=== PATIENT | female | born 1970 | race Caucasian/White ===

== ENCOUNTER → 2016-10-22 | Outpatient (CLI) | payer OTHER ==
[2016-10-22 10:52] LABS: Basophils % (A) 0 %; CH 25.8; CHCM 32.7; Eosinophils # (A) 0.1 k/uL (0-0.7); Eosinophils % (A) 1 %; HCT 39.3 % (34.0-46.0); HDW 2.62; HGB 12.8 gm/dL (11.4-16.0); Luc # (Auto) 0.25; Luc % (Auto) 3; Lymphocytes # (A) 2.5 k/uL (1.0-4.8); Lymphocytes % (A) 28 %; MCH 25.9 pg (25.0-35.0); MCHC 32.7 g/dL (31.0-37.0); MCV 79.3 fL (80.0-100.0); Monocytes # (A) 0.4 k/uL (0-1.0); Monocytes % (A) 5 %; Neutrophils # (A) 5.7 k/uL (1.3-7.7); Neutrophils % (A) 64 %; RBC 4.95 m/uL (3.80-5.40); RDW 15.1 % (11.5-15.5); WBC (Perox) 9.81
[2016-10-22 11:25] LABS: ALT 22 U/L (9-52); AST 14 U/L (14-36); Alkaline Phosphatase 107 U/L (38-126); Anion Gap 9 mmol/L; Blood Urea Nitrogen 23 mg/dL (7-17); Calcium 9.5 mg/dL (8.4-10.2); Carbon Dioxide 26 mmol/L (22-30); Chloride 102 mmol/L (98-107); Cholesterol 149 mg/dL (<200); Glucose 95 mg/dL (74-99); HDL Cholesterol 53 mg/dL (40-60); Non-African American GFR(MDRD) >60 (>60 ml/min/1.73 sqM); Potassium 4.1 mmol/L (3.5-5.1); Sodium 137 mmol/L (137-145); Total Bilirubin 0.9 mg/dL (0.2-1.3); Total Protein 7.2 g/dL (6.3-8.2); Triglycerides 133 mg/dL (<150)
== END | disposition home or self-care (01) ==
LOC: LABWHC1 10:27
PROVIDERS: ATTEND Internal Medicine Critical Care Medicine
DX: Z00.00 Encounter for general adult medical examination without abnormal findings (principal); I10 Essential (primary) hypertension; E78.5 Hyperlipidemia, unspecified; E55.9 Vitamin D deficiency, unspecified
CPT/HCPCS: 36415; 80053; 80061; 82306; 84439; 84443; 85025

== ENCOUNTER → 2016-11-09 | Outpatient (CLI) | payer OTHER ==
--- NOTE | 2016-11-09 10:10 | CT ---
EXAMINATION TYPE: CT brain w con DATE OF EXAM: 11/09/2016 COMPARISON: NONE HISTORY: Patient complains of bilateral neck swelling (marked by BB) and headache. CT DLP: 788.8 mGycm Automated exposure control for dose reduction was used. CONTRAST: CT scan of the head is performed with IV Contrast, patient injected with 100 mL of Omnipaque 300. FINDINGS: There is no abnormal enhancing mass or midline shift identified. The ventricles and sulci are within normal limits in size. The globes are intact and the visualized sinuses are clear. If symptoms pers ist Consider MRI. IMPRESSION: Negative contrast enhanced head CT exam.
--- NOTE | 2016-11-09 10:16 | CT ---
EXAMINATION TYPE: CT soft tissue neck w con DATE OF EXAM: 11/09/2016 COMPARISON: NONE HISTORY: Patient complains of bilateral neck swelling (marked by BB) and headache. CT DLP: 874.2 mGycm CONTRAST: CT scan of the neck is performed with IV Contrast, patient injected with 100 mL of Omnipaque 300. Contrast enhanced CT of the neck was performed from the skull base through the lung apices. AIRWAY: The supraglottic, glottic, and subglottic portions of the airway appear patent and free of mass. SALIVARY GLANDS: The submandibular and parotid glands are free of mass or inflammatory process. THYROID GLAND: No nodules or masses seen. LYMPH NODES: At the site of clinical concern in the right neck there is an enlarged lymph node measur ing 1 cm in short axis. Multiple adjacent lymph nodes are identified measuring less than 1 cm. There are also lymph nodes noted adjacent to the left submandibular gland at the site of clinical concern m easuring 8 mm. Bilateral internal jugular chain lymph nodes are seen measuring up to 1.1 cm on the ri ght 1.1 cm on the left. Multiple bilateral nonenlarged lymph nodes are seen adjacent to the submandib ular glands all measuring less than 1 cm. LUNG APICES: No nodule or mass is seen. OTHER: Vascular structures are patent. No significant degenerative change of the cervical spine. N o abscess seen. IMPRESSION: Multiple bilateral mildly enlarged and subcentimeter lymph nodes as discussed above which are nonspe cific.
== END | disposition home or self-care (01) ==
LOC: RADCTMAIN 09:32
PROVIDERS: ATTEND Internal Medicine Critical Care Medicine
DX: R59.1 Generalized enlarged lymph nodes (principal)
CPT/HCPCS: 70491; 70460; Q9967; 36415; 80053; 82164; 82550; 85025; 85652; 86308; 86611; 86735; 86762; 86765

== ENCOUNTER → 2016-11-09 | Outpatient (CLI) | payer OTHER ==
[2016-11-09 13:40] LABS: Basophils # (A) 0.1 k/uL (0-0.2); Basophils % (A) 1 %; CH 25.3; CHCM 32.2; Eosinophils # (A) 0.1 k/uL (0-0.7); Eosinophils % (A) 1 %; HCT 39.8 % (34.0-46.0); HDW 2.61; HGB 13.5 gm/dL (11.4-16.0); Luc # (Auto) 0.19; Luc % (Auto) 2; Lymphocytes # (A) 1.8 k/uL (1.0-4.8); Lymphocytes % (A) 19 %; MCH 26.8 pg (25.0-35.0); MCV 78.9 fL (80.0-100.0); Mean Platelet Volume 7.2; Monocytes # (A) 0.4 k/uL (0-1.0); Monocytes % (A) 5 %; Neutrophils # (A) 6.8 k/uL (1.3-7.7); Neutrophils % (A) 72 %; RBC 5.04 m/uL (3.80-5.40); WBC 9.4 k/uL (3.8-10.6); WBC (Perox) 9.59
[2016-11-09 13:57] LABS: ALT 25 U/L (9-52); AST 12 U/L (14-36); Alkaline Phosphatase 123 U/L (38-126); Anion Gap 13 mmol/L; Blood Urea Nitrogen 18 mg/dL (7-17); Calcium 9.5 mg/dL (8.4-10.2); Carbon Dioxide 25 mmol/L (22-30); Chloride 100 mmol/L (98-107); Creatine Kinase 36 U/L (30-135); Glucose 91 mg/dL (74-99); Non-African American GFR(MDRD) >60 (>60 ml/min/1.73 sqM); Potassium 3.9 mmol/L (3.5-5.1); Sodium 138 mmol/L (137-145); Total Bilirubin 0.8 mg/dL (0.2-1.3); Total Protein 7.6 g/dL (6.3-8.2)
[2016-11-09 15:50] LABS: Erythrocyte Sedimentation Rate 33 mm/hr (0-20)
[2016-11-09 19:44] LABS: Mumps Virus IgG Ab Interp NEGATIVE (NEGATIVE); Rubeola (Measles) IgG 5.3 AI
[2016-11-12 07:08] LABS: Bartonella henselae Ab, IgG <1:64; Bartonella henselae Ab, IgM < 1:16
== END | disposition home or self-care (01) ==
LOC: LABWHC1 12:36
PROVIDERS: ATTEND Internal Medicine Critical Care Medicine
DX: R59.9 Enlarged lymph nodes, unspecified (principal)
CPT/HCPCS: 36415; 80053; 82164; 82550; 85025; 85652; 86308; 86611; 86735; 86762; 86765

== ENCOUNTER → 2017-12-21 | Outpatient (CLI) | payer MEDICAID ==
--- NOTE | 2017-12-21 08:02 | XR ---
EXAMINATION TYPE: XR ankle complete LT DATE OF EXAM: 12/21/2017 CLINICAL HISTORY: Twisting injury and fall with subsequent left ankle pain. TECHNIQUE: Frontal, lateral and oblique images of the left ankle are obtained. COMPARISON: None. FINDINGS: There is pronounced soft tissue swelling over the lateral malleolus. Small osseous fragment s at the distal fibula may represent avulsion fracture. Small plantar and Achilles enthesophytes are seen. There is no additional acute fracture/dislocation evident in the left ankle. The ankle mortis e appears within normal limits. IMPRESSION: Small osseous fragments of the distal fibula and a prominent overlying soft tissue swelli ng over the lateral malleolus. Findings likely relate to avulsion injury of the anterior and/or poste rior talofibular ligament, which could be confirmed with MRI.
== END | disposition home or self-care (01) ==
LOC: RADXRMAIN 07:29
PROVIDERS: ATTEND Internal Medicine Critical Care Medicine
DX: M79.89 Other specified soft tissue disorders (principal); M25.572 Pain in left ankle and joints of left foot

== ENCOUNTER → 2018-05-22 | Outpatient (CLI) | payer MEDICAID ==
--- NOTE | 2018-05-26 11:16 | MM ---
Reason for exam: screening (asymptomatic). Last mammogram was performed 1 year and 1 month ago. History: Patient is nulliparous. Took hormonal contraceptives for 4 years. MG 3D Screening Mammo W/Cad Bilateral CC and MLO view(s) were taken. Prior study comparison: April 07, 2017, bilateral MG screening mammo w CAD. December 09, 2015, bilateral MG screening mammo w CAD. The breast tissue is heterogeneously dense. This may lower the sensitivity of mammography. There is benign-appearing round bilateral breast calcifications. There is chronic nodularity in the right breast and the left axilla. No discrete abnormality. ASSESSMENT: Benign, BI-RAD 2 RECOMMENDATION: Routine screening mammogram of both breasts in 1 year.
== END ==
LOC: RADMAMWWP 06:50
PROVIDERS: ATTEND Internal Medicine Critical Care Medicine
DX: Z12.31 Encounter for screening mammogram for malignant neoplasm of breast (principal)
CPT/HCPCS: 77063; 77067

== ENCOUNTER 2018-08-07 07:43 | Emergency (ER) | payer MEDICAID ==
[2018-08-07 07:49] VITALS: RESP 18
[2018-08-07] MEDS ORDERED: SODIUM CHLORIDE 0.9% 1,000 ML IV STA ×2 (08:01)
[2018-08-07] MEDS ORDERED: ONDANSETRON 4 MG/2 ML VIAL IVP STA (08:01)
[2018-08-07] MEDS ORDERED: KETOROLAC 30 MG/ML 1 ML VIAL IVP STA (08:07)
--- NOTE | 2018-08-07 08:07 | ED ---
Chest Pain HPI - General Chief Complaint: Chest Pain Stated Complaint: chest pain Time Seen by Provider: 08/07/18 07:50 Source: patient, RN notes reviewed Mode of arrival: wheelchair Limitations: no limitations - History of Present Illness Initial Comments: This is a 48-year-old female with a benign past medical history other than hypothyroidism and hypertension who states she had the onset 2 days ago of nausea vomiting diarrhea she's had multiple episodes of this. She started developing 4 AM this morning left-sided sharp stabbing chest pain in one location she points her left mid to upper costal sternal margin. It is now dull about 4/10 severity. He currently is nauseated she also complains of a headache she has some lightheadedness with ambulation decreased urine output. Decreased oral input. No known history of any abdominal issues. No bad food no exposure to anybody with known GI problems no recent travel. No family history of any heart disease at early age. MD Complaint: chest pain, other - Related Data Home Medications Medication Instructions Recorded Confirmed Cetirizine HCl [Zyrtec] 10 mg PO DAILY 08/07/18 08/07/18 Levothyroxine Sodium [Synthroid] 200 mcg PO DAILY 08/07/18 08/07/18 Losartan Potassium [Cozaar] 100 mg PO DAILY 08/07/18 08/07/18 Ranitidine HCl [Zantac] 150 mg PO DAILY PRN 08/07/18 08/07/18 Previous Rx's Medication Instructions Recorded Ondansetron [Zofran ODT] 4 mg PO Q8HR #12 tab 08/07/18 Allergies Allergy/AdvReac Type Severity Reaction Status Date / Time metronidazole [From Flagyl] Allergy Nausea & Verified 08/07/18 08:45 Vomiting moxifloxacin [From Avelox] Allergy Diarrhea Verified 08/07/18 08:45 Review of Systems ROS Statement: Those systems with pertinent positive or pertinent negative responses have been documented in the HPI. ROS Other: All systems not noted in ROS Statement are negative. Past Medical History Past Medical History: Hypertension, Thyroid Disorder History of Any Multi-Drug Resistant Organisms: None Reported Past Surgical History: No Surgical Hx Reported Past Psychological History: No Psychological Hx Reported Smoking Status: Never smoker Past Alcohol Use History: None Reported Past Drug Use History: None Reported General Exam - General Exam Comments Initial Comments: Well-developed well-nourished awake alert oriented 3 female Limitations: no limitations General appearance: alert, anxious Head exam: Present: atraumatic, normocephalic, normal inspection Eye exam: Present: normal appearance, PERRL, EOMI. Absent: scleral icterus, conjunctival injection, periorbital swelling ENT exam: Present: mucous membranes dry Neck exam: Present: normal inspection. Absent: tenderness, meningismus, lymphadenopathy Respiratory exam: Present: normal lung sounds bilaterally, chest wall tenderness (Producible tenderness palpation over the left costosternal margin no step-off or crepitation.). Absent: respiratory distress, wheezes, rales, rhonchi, stridor Cardiovascular Exam: Present: regular rate, normal rhythm, normal heart sounds. Absent: systolic murmur, diastolic murmur, rubs, gallop, clicks GI/Abdominal exam: Present: soft, tenderness, normal bowel sounds. Absent: distended, guarding, rebound, rigid Rectal exam: Present: deferred Extremities exam: Present: normal inspection, full ROM, normal capillary refill. Absent: tenderness, pedal edema, joint swelling, calf tenderness Back exam: Present: normal inspection Neurological exam: Present: alert, oriented X3, CN II-XII intact Psychiatric exam: Present: normal affect, normal mood Skin exam: Present: warm, dry, intact, normal color. 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 Patient was seen in the emergency department by Dr. Marte. Chest Pain MDM - MDM I did reevaluate patient several occasions he CAT scan of the chest showed no evidence of pulmonary embolism. Patient's presentation consistent with gastroenteritis likely viral etiology. She also has costochondritis muscles cold-type pain. Elevated d-dimer did require a CAT scan which was negative for PE. Patient be discharged to follow-up with her doctor return when necessary the influenza was negative Disposition Clinical Impression: Gastroenteritis, Acute chest wall pain, Costalchondritis Disposition: HOME SELF-CARE Condition: Good Instructions (If sedation given, give patient instructions): Costochondritis (ED), Gastroenteritis (ED) Prescriptions: Ondansetron [Zofran ODT] 4 mg PO Q8HR #12 tab Is patient prescribed a controlled substance at d/c from ED?: No Referrals: Charly Mckeon MD [Primary Care Provider] - 1-2 days
[2018-08-07 08:25] LABS: Basophils % (A) 0 %; Eosinophils # (A) 0.1 k/uL (0-0.7); Eosinophils % (A) 1 %; HCT 43.3 % (34.0-46.0); HGB 13.8 gm/dL (11.4-16.0); Lymphocytes # (A) 0.5 k/uL (1.0-4.8); Lymphocytes % (A) 8 %; MCH 25.3 pg (25.0-35.0); MCHC 31.8 g/dL (31.0-37.0); MCV 79.4 fL (80.0-100.0); Mean Platelet Volume 6.8; Monocytes # (A) 0.4 k/uL (0-1.0); Monocytes % (A) 5 %; Neutrophils # (A) 5.4 k/uL (1.3-7.7); Neutrophils % (A) 84 %; Platelet Count 261 k/uL (150-450); RBC 5.46 m/uL (3.80-5.40); WBC 6.5 k/uL (3.8-10.6)
--- NOTE | 2018-08-07 08:30 | XR ---
EXAMINATION TYPE: XR chest 2V DATE OF EXAM: 08/07/2018 COMPARISON: Prior chest x-ray 04/27/2017 HISTORY: Chest pain TECHNIQUE: Frontal and lateral views of the chest are obtained. FINDINGS: Lung volumes are low and the patient is rotated. Heart size is likely stable accounting fo r differences in technique. No evident airspace disease, pneumothorax, or pleural effusion. There are overlying cardiac leads. IMPRESSION: No acute cardiopulmonary process.
--- NOTE | 2018-08-07 08:32 | XR ---
Abdomen HISTORY: Vomiting and diarrhea frontal view of the abdomen on 2 images Lung bases are clear. There is no evident bowel obstruction or pneumoperitoneum. There are some air-f luid levels present. There is a spinal curvature and degenerative disc disease noted. Overlying cardi ac leads are present. IMPRESSION: There may be an underlying enteritis, follow-up as indicated.
[2018-08-07 08:36] LABS: ALT 22 U/L (9-52); AST 13 U/L (14-36); Albumin 3.8 g/dL (3.5-5.0); Alkaline Phosphatase 100 U/L (38-126); Amylase <30 U/L (30-110); Anion Gap 10 mmol/L; Blood Urea Nitrogen 23 mg/dL (7-17); Calcium 9.4 mg/dL (8.4-10.2); Carbon Dioxide 24 mmol/L (22-30); Chloride 102 mmol/L (98-107); Creatine Kinase 25 U/L (30-135); Glucose 126 mg/dL (74-99); Lipase 39 U/L (23-300); Magnesium 1.8 mg/dL (1.6-2.3); Potassium 3.5 mmol/L (3.5-5.1); Sodium 136 mmol/L (137-145); Total Bilirubin 0.9 mg/dL (0.2-1.3); Total Protein 7.3 g/dL (6.3-8.2)
[2018-08-07 08:41] LABS: INR 1.2 (<1.2); Partial Thromboplastin Time 25.2 sec (22.0-30.0)
[2018-08-07 08:47] LABS: D-Dimer 2.86 mg/L FEU (<0.60)
--- NOTE | 2018-08-07 09:28 | CT ---
EXAMINATION TYPE: CT angio chest DATE OF EXAM: 08/07/2018 COMPARISON: Radiograph same day HISTORY: 48-year-old female Left sided Chest pain TECHNIQUE: Contiguous axial scanning of the chest performed with IV Contrast, patient injected with 1 00 mL of Isovue 370. Coronal/sagittal MIP reconstructions performed. CT DLP: 954.7 mGycm Automated exposure control for dose reduction was used. FINDINGS: Heart upper limits of normal in size without pericardial effusion. Aorta normal caliber with bovine configuration to the aortic arch. No thoracic lymphadenopathy by CT size criteria. There is suboptimal opacification of the pulmonary arterial system with attenuation of 133 Hounsfield units in the pulmonary artery. No large central pulmonary embolus. Lobar and more distal arterial br anches are essentially nondiagnostic especially due to the presence of breathing motion as well. Mild diffuse bronchial wall thickening. Some hazy densities in the lower lungs and additional depende ntly likely areas of atelectasis. No pippa consolidation or pleural effusion. Spleen measures 18.9 cm. Lung volumes appear to be somewhat diminished probably from prominent intra- abdominal fat pushing up on the diaphragm. Bones: No osseous destructive process. IMPRESSION: 1. NO LARGE CENTRAL PULMONARY EMBOLUS. OTHERWISE, ASSESSMENT FOR PULMONARY EMBOLI IN THE LOBAR AND MO RE DISTAL ARTERIAL BRANCHES IS NONDIAGNOSTIC AND EMBOLI IN THESE LOCATIONS CANNOT BE ADEQUATELY EXCLU DED ON THE BASIS OF THIS EXAM. 2. POSSIBLE RESTRICTIVE LUNG DISEASE SECONDARY TO INTRA-ABDOMINAL GIRTH AND CONTRIBUTING TO RELATIVEL Y LOW LUNG VOLUMES. 3. HAZY LOWER LUNG DENSITIES SUSPECTED TO RELATE TO GENERALIZED ATELECTASIS. 4. MILD DIFFUSE BRONCHIAL WALL THICKENING COULD REFLECT BRONCHITIS OR ASTHMA. 5. SPLENOMEGALY (18.9 CM). CLINICALLY CORRELATE.
[2018-08-07] MEDS ORDERED: ACETAMINOPHEN TAB 500 MG TAB PO STA (10:48)
[2018-08-07 12:32] VITALS: BP 133/93; PULSE 69; TEMP 98.3
[2018-08-07] MEDS ORDERED: ONDANSETRON 4 MG/2 ML VIAL IVP SCH (13:00)
== END 2018-08-07 12:56 | disposition home or self-care (01) ==
LOC: EC 07:43
DX: M94.0 Chondrocostal junction syndrome [Tietze] (principal); K52.9 Noninfective gastroenteritis and colitis, unspecified; I10 Essential (primary) hypertension; R51 Headache; R42 Dizziness and giddiness; E07.9 Disorder of thyroid, unspecified; Z79.890 Hormone replacement therapy; Z79.899 Other long term (current) drug therapy; Z88.1 Allergy status to other antibiotic agents
CPT/HCPCS: 36415; 71046; 71275; 74018; 80053; 82150; 82550; 83690; 83735; 84484; 85025; 85379; 85610; 85730; 87502; 93005; 96361; 96374; 96375; 99285

== ENCOUNTER → 2019-06-14 | Outpatient (CLI) | payer MEDICAID ==
--- NOTE | 2019-06-17 09:19 | MM ---
Reason for exam: screening (asymptomatic). Last mammogram was performed 1 year and 1 month ago. History: Patient is nulliparous. Took hormonal contraceptives for 4 years. Physical Findings: A clinical breast exam by your physician is recommended on an annual basis and results should be correlated with mammographic findings. MG 3D Screening Mammo W/Cad Bilateral CC, MLO, and XCCL view(s) were taken. Prior study comparison: May 22, 2018, bilateral MG 3d screening mammo w/cad. April 07, 2017, bilateral MG screening mammo w CAD. The breast tissue is heterogeneously dense. This may lower the sensitivity of mammography. No suspicious abnormality. No significant changes when compared with prior studies. ASSESSMENT: Negative, BI-RAD 1 RECOMMENDATION: Routine screening mammogram of both breasts in 1 year.
== END | disposition home or self-care (01) ==
LOC: RADMAMWWP 06:49
PROVIDERS: ATTEND Internal Medicine Critical Care Medicine
DX: Z12.31 Encounter for screening mammogram for malignant neoplasm of breast (principal)
CPT/HCPCS: 77063; 77067

== ENCOUNTER → 2019-10-17 | Outpatient (CLI) | payer MEDICAID ==
[~2019-10-17] MED LIST: LEVOFLOXACIN 500MG-D5W PMX 500 MG in DEXTROSE/WATER 1 100ML.BAG IVPB NR; SODIUM CHLORIDE 0.9% 500 ML 500 ML in EMPTY BAG 1 BAG IV PRN; VANCOMYCIN 1,000 MG in SODIUM CHLORIDE 0.9% 250 ML IVPB NR
[2019-10-17 09:22] VITALS: BP 146/92; PULSE 71; RESP 16; TEMP 97.7
[2019-10-17 10:03] LABS: Basophils % (A) 0 %; Eosinophils # (A) 0.1 k/uL (0-0.7); Eosinophils % (A) 1 %; HCT 39.4 % (34.0-46.0); Hypochromasia Slight; Lymphocytes # (A) 1.9 k/uL (1.0-4.8); Lymphocytes % (A) 16 %; MCH 27.3 pg (25.0-35.0); MCV 82.9 fL (80.0-100.0); Mean Platelet Volume 7.6; Monocytes # (A) 0.6 k/uL (0-1.0); Monocytes % (A) 5 %; Neutrophils % (A) 77 %; Platelet Count 343 k/uL (150-450); RBC 4.75 m/uL (3.80-5.40); RDW 13.8 % (11.5-15.5); WBC 11.7 k/uL (3.8-10.6)
== END | disposition home or self-care (01) ==
LOC: PROCWHC3 09:06
PROVIDERS: ATTEND Nurse Practitioner Adult Health
DX: L03.90 Cellulitis, unspecified (principal)
CPT/HCPCS: 85025; 87040; 96365; 96366; 96367; 36415; J3370; J1956

== ENCOUNTER → 2019-10-18 | Outpatient (CLI) | payer MEDICAID ==
--- NOTE | 2019-10-18 10:08 | P.GSHP ---
History of Present Illness H&P Date: 10/18/19 Chief Complaint: right breast pain/swelling Naomie is a 49 year old white female seen in consultation for DR. Marte with a complaint of pain in her right breast. She states approximately 2 weeks ago she was moving a washing machine and the machine had her firmly in the breast. She had immediate discomfort which seemed to decrease somewhat. However within 24-48 hours she had increased pain at that site and had increased swelling at that site as well. She subsequently was seen at [facility], she was given doxycycline for cellulites, but was unable to take that, and was than started on Keflex. She had that for two day. Yesterday morning she was given a dose of vanco and leviquin but this morning it seems to be worse. The lump is firm and tender. The erythema has not imporved. The pain in the breast has decreased except for the isolated area of firmness. She had a bilateral mammogram performed in June 2019 which was benign BIRADS 1. She is not experiencing any fever or chills. Caffiene: One glass of pop per day Smoking: Negative secondhand smoke: Negative Chocolate: Occasional Hormones: Negative Hormonal history: Menarche:15 , 1 miscarriage periods irregular; LMP September 19 BCP: 10 years hormoens: none Surgical history: None Medical history: HTN hypothyroidism Environmental ALLERGIES Social history: Smoking: Negative Alcohol: Negative Drugs: Negative - Constitutional Constitutional: Denies chills, Denies fever - EENT Eyes: denies blurred vision, denies pain Ears: left: decreased hearing, deny: tinnitus Ears, nose, mouth and throat: Denies headache, Denies sore throat - Breasts Breasts: bilateral: as per HPI - Cardiovascular Cardiovascular: Denies chest pain, Denies shortness of breath - Respiratory Respiratory: Denies cough, Denies 7 - Gastrointestinal Gastrointestinal: Denies abdominal pain, Denies diarrhea, Denies nausea, Denies vomiting - Genitourinary (Female) Genitourinary: Denies dysuria, Denies hematuria - Menstruation Menstruation: Reports menses variable - Musculoskeletal Musculoskeletal: Denies myalgias - Integumentary Integumentary: Reports as per HPI - Neurological Neurological: Denies numbness, Denies weakness - Psychiatric Psychiatric: Denies anxiety, Denies depression - Endocrine Endocrine: Denies fatigue, Denies weight change - Hematologic/Lymphatic Comment: none - Allergic/Immunologic Allergic/Immunologic: Reports seasonal allergies Past Medical History Past Medical History: Hypertension, Thyroid Disorder History of Any Multi-Drug Resistant Organisms: None Reported Past Surgical History: No Surgical Hx Reported Past Anesthesia/Blood Transfusion Reactions: No Reported Reaction Past Psychological History: No Psychological Hx Reported Smoking Status: Never smoker Past Alcohol Use History: None Reported Past Drug Use History: None Reported - Past Family History Father Family Medical History: Coronary Artery Disease (CAD), Diabetes Mellitus, Hypertension, Renal Disease Mother Family Medical History: Congestive Heart Failure (CHF), Coronary Artery Disease (CAD), Diabetes Mellitus, Hypertension, Sleep Apnea/CPAP/BIPAP, Thyroid Disorder Brother(s) Family Medical History: Coronary Artery Disease (CAD), Hypertension Medications and Allergies Home Medications Medication Instructions Recorded Confirmed Type Cetirizine HCl [Zyrtec] 10 mg PO QAM 08/07/18 10/18/19 History Levothyroxine Sodium [Synthroid] 200 mcg PO QAM 08/07/18 10/18/19 History Losartan Potassium [Cozaar] 125 mg PO QAM 08/07/18 10/18/19 History Cephalexin [Keflex] 500 mg PO Q6HR 10/18/19 10/18/19 History Cholecalciferol [Vitamin D3] 2,000 tab PO QAM 10/18/19 10/18/19 History amLODIPine [Norvasc] 5 mg PO QAM 10/18/19 10/18/19 History Allergies Allergy/AdvReac Type Severity Reaction Status Date / Time metronidazole [From Flagyl] Allergy Nausea & Verified 10/18/19 09:27 Vomiting moxifloxacin [From Avelox] Allergy Diarrhea Verified 10/18/19 09:27 doxycycline AdvReac Nausea & Unverified 10/18/19 09:27 Vomiting Surgical - Exam Vital Signs Temp Pulse Resp BP Pulse Ox 97.9 F 77 18 128/84 100 10/18/19 09:30 10/18/19 09:30 10/18/19 09:30 10/18/19 09:30 10/18/19 09:30 - General obese - Eyes normal ocular movement - ENT no hearing loss, no congestion - Neck no masses, trachea midline - Respiratory normal respiratory effort, clear to auscultation - Cardiovascular Rhythm: regular Heart Sounds: normal: S1, S2 - Abdomen Abdomen: soft, non tender, no guarding, no rigid, no rebound - Neurologic no disoriented, no combative - Musculoskeletal normal gait, normal posture - Psychiatric oriented to time, oriented to person, oriented to place, speech is normal, memory intact Breast exam: BRA 48D inspection: ptosis grade 3 palpation: Right breast: Erythema lower inner aspect of the breast, there is fullness approximately 3 x 4 cm in size at the periareolar region, this may be an abscess versus hematoma Right axilla: No adenopathy of concern Left breast: Multi-positional exam no dominant masses or nodules of concern Left axilla: No adenopathy of concern Assessment and Plan Assessment: Impression: 1. History of recent trauma to the right breast with erythema now and firmness at the site of the trauma note 2. Hematoma versus abscess 3. Patient on course of Keflex without resolution of the erythema and 4. No fever or chills Plan: 1. Ultrasound area of firmness rule out something which can be drained 2. Consider admission with IV antibiotic therapy and infectious disease consultation CC: Dr. Marte encounter 45 minutes, > 50% of tiem in planning and counselling
[2019-10-18 13:09] VITALS: BP 122/80; PULSE 57; RESP 20; TEMP 97.4
--- NOTE | 2019-10-18 18:45 | USB ---
EXAMINATION TYPE: US breast aspiration single RT DATE OF EXAM: 10/18/2019 CLINICAL HISTORY: 49-year-old female status post trauma and breast swelling with underlying fluid collection, increasing redness and pain, failed multiple courses of antibiotics. N63. TECHNIQUE: Ultrasound-guided core needle aspiration of right breast fluid collection. COMPARISON: 10/18/2019. FINDINGS: The procedure of ultrasound guided core biopsy was explained to the patient. Benefits, alternatives, and risks were discussed. An informed consent was then obtained. The patient was placed in supine positioning for imaging and for the procedure. The overlying skin was prepped and draped in usual sterile fashion. Lidocaine was used as anesthetic into the skin and subcutaneous tissue up to area of concern in the right breast. Under ultrasound guidance, 18-gauge spinal needle was advanced into the large fluid collection located in the subareolar region extending to the 3:00 position. Once the needle was placed, aspiration yielded 13 mL of reddish-brown pus. This was labeled and sent to the laboratory for assessment. The patient tolerated the procedure well without any immediate complication. The patient was kept in the radiology department for short stay after the procedure and then discharged home in stable condition on antibiotics and will be reassessed by surgery following the weekend. Minimal residual fluid remained within a collapsed abscess cavity. IMPRESSION: Successful, uncomplicated ultrasound guided abscess drainage of the subareolar right breast, microbiology pending. 13 mL reddish-brown pus was removed. Pathology Results: Benign RIGHT BREAST, CYST ASPIRATE: Abundant neutrophils, proteinaceous material and bacteria consistent with abscess contents. Recommendation Follow up mammogram of the right breast in 6 months. WISAM
--- NOTE | 2019-10-22 07:56 | USB ---
Reason for exam: clinical finding. History: Patient is nulliparous. Took hormonal contraceptives for 4 years. Indicated problem(s): palpable abnormality and lump or thickening in the right breast. Physical Findings: Breast exam performed by Dr. Jung. US Breast Limited RT Right limited breast ultrasound including focal area of concern, retroareolar and axilla demonstrates a 4.7 x 2.5 x 5.2cm mixed lesion at the posterior nipple, fluid collection with debris and surrounding hyperemia. Scanned 3-6 o'clock. These results were verbally communicated with the patient and result sheet given to the patient on 10/18/19. ASSESSMENT: Benign, BI-RAD 2 RECOMMENDATION: Aspiration of the right breast. (for suspected breast abscess)
== END | disposition home or self-care (01) ==
LOC: WWCWWP 09:08
PROVIDERS: ATTEND Surgery
DX: N61.1 Abscess of the breast and nipple (principal)
CPT/HCPCS: 87070; 87205; 87075; 76942; 19000; 76642; J2001; 87077; 87186; 88108; 88305

== ENCOUNTER → 2019-10-22 | Outpatient (CLI) | payer MEDICAID ==
--- NOTE | 2019-10-22 10:48 | USB ---
Reason for exam: clinical finding. History: Patient is nulliparous. Took hormonal contraceptives for 4 years. Indicated problem(s): pain in the right breast. Physical Findings: Nurse Summary: right breast abscess drained 10/18/19, pain, swelling, redness decreased, taking x 2 antibiotics currently (nurse rigo). US Breast Limited RT Right limited breast ultrasound including focal area of concern, retroareolar and axilla demonstrates a 1.4 x 1.2 x 0.9cm oval, axilla node and a irregular, mixed, vascular abscess at 2-4 o'clock. Residual abscess. These results were verbally communicated with the patient and result sheet given to the patient on 10/22/19. ASSESSMENT: Benign, BI-RAD 2 RECOMMENDATION: Ultrasound of the right breast in 3 months.
== END | disposition home or self-care (01) ==
LOC: RADUSWWP 09:36
PROVIDERS: ATTEND Surgery
DX: N61.1 Abscess of the breast and nipple (principal)

== ENCOUNTER → 2019-10-22 | Outpatient (CLI) | payer MEDICAID ==
--- NOTE | 2019-10-22 12:19 | P.PN ---
Subjective Progress Note Date: 10/22/19 Principal diagnosis: Right breast abscess Naomie is a 49-year-old white female who was seen on 10-18-19 with a right breast abscess. This was percutaneously drained and she was started on Bactrim she was already on Keflex. She had a repeat ultrasound performed today. There is approximately a 2 x 2 centimeter residual area of fluid which has decreased in size from approximately 5.7 x 5 cm. The patient has not had any fever or chills. She states that the pain has resolved. The area of erythema has decreased as well. Her cultures were positive for Proteus mirabilis. It is sensitive to Bactrim and Keflex. Objective - Constitutional General appearance: Present: obese - EENT Eyes: Present: EOMI ENT: Present: hearing grossly normal - Integumentary Integumentary Comment(s): Decreased erythema right breast Area of fullness right breast approximately 5 x 3 cm in size just lateral to the areola at 1 to 2:00. - Musculoskeletal Musculoskeletal: Present: gait normal - Psychiatric Psychiatric: Present: A&O x's 3, appropriate affect, intact judgment & insight Assessment and Plan Assessment: Impression: 1. Residual fluid right breast near area of abscess on ultrasound and physical exam 2. Decreased erythema noted 3. No fever or chills Plan: 1. Percutaneous drainage of the area for 2. Continue antibiotics 3. warm compresses to the area of concern in the right breast I discussed with Naomie going to the operating room for incision and drainage of the area. She is clinically much improved from last week. She wishes an attempt at percutaneous aspiration. She will be seen again in 2 days. She understands if the area fails to resolve then she may still need I&D in the operating room. CC: Dr. Marte
--- NOTE | 2019-10-22 12:22 | P.PCN ---
Date of Procedure: 10/22/19 Preoperative Diagnosis: Right breast abscess Postoperative Diagnosis: Same Procedure(s) Performed: Percutaneous drainage of area of concern Anesthesia: local Surgeon: Daniella Jung Pathology: none sent Condition: stable Disposition: same day Indications for Procedure: Fluctuance area prior abscess right breast Operative Findings: Serous breast fluid Description of Procedure: Naomie is a 49-year-old white female who was diagnosed with a right breast abscess on 10/1219. She underwent ultrasound-guided drainage on that date. She is doing well at this time however has an area of persistent fluctuance and a 2 x 2 centimeters area of fluid residual on ultrasound, as well as a small phlegmon. The patient was given the option of drainage in the operating room versus attempted percutaneous drainage. She wishes to avoid operative intervention if possible. She has a palpable area of fluctuance which is consistent with a lesion seen on ultrasound. The area was prepped using Betadine. Approximately 3 mL of 1% lidocaine was used to anesthetize the area of concern. An 18-gauge needle on a 10 mL syringe was inserted into the area of fluctuance. Approximately 6 mL of seropurulent fluid was aspirated with resolution of the fluctuance. The patient tolerated the procedure in stable condition. Repeat cultures were not sent. The patient will follow up in 2 days.
[2019-10-22 13:18] VITALS: BP 116/82; PULSE 87; RESP 16; TEMP 98
== END | disposition home or self-care (01) ==
LOC: WWCWWP 11:50
PROVIDERS: ATTEND Surgery
DX: Z53.9 Procedure and treatment not carried out, unspecified reason (principal)

== ENCOUNTER 2019-10-23 15:10 | Observation (INO) | payer MEDICAID ==
[2019-10-23] MEDS ORDERED: ACETAMINOPHEN TAB 500 MG TAB PO STA (15:50)
[2019-10-23] MEDS ORDERED: VANCOMYCIN IV PER PHARMACY 1 EACH MISC MISCELLANE PRN (15:50)
[2019-10-23] MEDS ORDERED: LEVOFLOXACIN 750MG-D5W PMX 750 MG in DEXTROSE/WATER 1 150ML.BAG IVPB STA (15:50)
[2019-10-23] MEDS ORDERED: VANCOMYCIN 2,000 MG in SODIUM CHLORIDE 0.9% 500 ML 500 ML IVPB ONE (16:00)
--- NOTE | 2019-10-23 16:04 | ED ---
Skin/Abscess/FB HPI <Tobias Hills - Last Filed: 10/23/19 16:43> - General Source: patient, RN notes reviewed, old records reviewed Mode of arrival: ambulatory Limitations: no limitations <Jackie Gilmore - Last Filed: 10/23/19 16:53> - General Chief complaint: Skin/Abscess/Foreign Body Stated complaint: Fever Time Seen by Provider: 10/23/19 15:23 - History of Present Illness Initial comments: Is a pleasant 49-year-old female who presents emergency Department today with right breast abscess for 2 weeks and cellulitis. She reports that she's been managed by Dr. Akhil Hills who did a needle drainage yesterday in which 6 mL of purulent fluid was removed as well as ultrasound. Her previous culture grew Proteus Mirabella's. Patient has been on Keflex for the past week and Bactrim since Monday. Patient reports that over the past 24 hours she's noted she's had a fever of 100.1. Patient complains of worsening pain to the abscess And just general malaise. Patient states that she has had no history of resistant skin infections in the past. 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. (Jackie Gilmore) - Related Data Home Medications Medication Instructions Recorded Confirmed Cetirizine HCl [Zyrtec] 10 mg PO QAM 08/07/18 10/22/19 Levothyroxine Sodium [Synthroid] 200 mcg PO QAM 08/07/18 10/22/19 Losartan Potassium [Cozaar] 125 mg PO QAM 08/07/18 10/22/19 Cephalexin [Keflex] 500 mg PO Q6HR 10/18/19 10/22/19 Cholecalciferol [Vitamin D3] 2,000 tab PO QAM 10/18/19 10/22/19 amLODIPine [Norvasc] 5 mg PO QAM 10/18/19 10/22/19 Allergies Allergy/AdvReac Type Severity Reaction Status Date / Time metronidazole [From Flagyl] Allergy Nausea & Verified 10/23/19 15:15 Vomiting moxifloxacin [From Avelox] Allergy Diarrhea Verified 10/23/19 15:15 TYRESE Inhibitors AdvReac Cough Verified 10/23/19 15:15 doxycycline AdvReac Nausea & Verified 10/23/19 15:15 Vomiting Review of Systems ROS Other: All systems not noted in ROS Statement are negative. <Tobias Hills - Last Filed: 10/23/19 16:43> ROS Other: All systems not noted in ROS Statement are negative. <IsidralexieJackie - Last Filed: 10/23/19 16:53> ROS Statement: Those systems with pertinent positive or pertinent negative responses have been documented in the HPI. Past Medical History Past Medical History: Hypertension, Thyroid Disorder History of Any Multi-Drug Resistant Organisms: None Reported Past Surgical History: No Surgical Hx Reported Past Anesthesia/Blood Transfusion Reactions: No Reported Reaction Past Psychological History: No Psychological Hx Reported Smoking Status: Never smoker Past Alcohol Use History: None Reported Past Drug Use History: None Reported - Past Family History Father Family Medical History: Coronary Artery Disease (CAD), Diabetes Mellitus, Hypertension, Renal Disease Mother Family Medical History: Congestive Heart Failure (CHF), Coronary Artery Disease (CAD), Diabetes Mellitus, Hypertension, Sleep Apnea/CPAP/BIPAP, Thyroid Disorder Brother(s) Family Medical History: Coronary Artery Disease (CAD), Hypertension <Shannan Gilmoreily - Last Filed: 10/23/19 16:53> General Exam Limitations: no limitations General appearance: alert, in no apparent distress Head exam: Present: atraumatic, normocephalic, normal inspection Eye exam: Present: normal appearance, PERRL, EOMI. Absent: scleral icterus, conjunctival injection, periorbital swelling ENT exam: Present: normal exam, mucous membranes moist Neck exam: Present: normal inspection. Absent: tenderness, meningismus, lymphadenopathy Respiratory exam: Present: normal lung sounds bilaterally, other (Patient has of right breast cellulitis with an abscess near the 3 o'clock position near the area old. Abscesses proximally 4 7 m x 3 cm.). Absent: respiratory distress, wheezes, rales, rhonchi, stridor Cardiovascular Exam: Present: regular rate, normal rhythm, normal heart sounds. Absent: systolic murmur, diastolic murmur, rubs, gallop, clicks GI/Abdominal exam: Present: soft, normal bowel sounds. Absent: distended, tenderness, guarding, rebound, rigid Extremities exam: Present: normal inspection, full ROM, normal capillary refill. Absent: tenderness, pedal edema, joint swelling, calf tenderness Back exam: Present: normal inspection Neurological exam: Present: alert, oriented X3, CN II-XII intact <IsidralindsaynicholeJackie - Last Filed: 10/23/19 16:53> - General Exam Comments Initial Comments: 49 year female. Alert and oriented 3. No significant distress. (Jackie Gilmore) Course <Tobias Hills - Last Filed: 10/23/19 16:43> <aJckie Gilmore - Last Filed: 10/23/19 16:53> Vital Signs 10/23/19 15:16 Temperature 100.3 F H Pulse Rate 87 Respiratory 16 Rate Blood Pressure 133/88 O2 Sat by Pulse 99 Oximetry - Reevaluation(s) Reevaluation #1: 10/23/19 16:02 Patient requests admission to [facility] physician. I discussed the case with Dr. Wallace agrees to accept the admission. (Jackie Gilmore) Reevaluation #2: 10/23/19 16:43 PA supervision: Patient will be admitted to this facility for inpatient treatment of cellulitis of the breast with possible abscess. Discussed with Dr. Wallace. Patient will be consulted for Dr. Akhil Hills (Tobias Hills) Medical Decision Making - Lab Data Result diagrams: 10/23/19 15:55 10/23/19 15:55 <Tobias Hills - Last Filed: 10/23/19 16:43> - Lab Data Result diagrams: 10/23/19 15:55 10/23/19 15:55 <Jackie Gilmore - Last Filed: 10/23/19 16:53> - Medical Decision Making 49-year-old female presents emergency department today with fever, and concern for failure of outpatient treatment for right breast cellulitis and abscess for 2 weeks. Patient has had this managed by Dr. Akhil Hills. She did have the drainage yesterday which she reports 6cc of purulent fluid was removed. At this time patient complained of fever and malaise for one day, and Patient arrived with fever but 100.3. She is given IV fluids labwork obtained. Patient was started on Levaquin and vancomycin. CBC was unremarkable. Due to concern for failure of outpatient treatment I discussed admission. I discussed the case with Dr. Hills and discussed the case with the admitting physician Dr. Wallace. Patient will be admitted with consult to Dr. Akhil Hills. (Jackie Gilmore) - Lab Data Lab Results 10/23/19 10/23/19 10/23/19 Range/Units 15:55 15:55 15:55 WBC 8.4 (3.8-10.6) k/uL RBC 5.07 (3.80-5.40) m/uL Hgb 13.3 (11.4-16.0) gm/dL Hct 41.2 (34.0-46.0) % MCV 81.3 (80.0-100.0) fL MCH 26.2 (25.0-35.0) pg MCHC 32.2 (31.0-37.0) g/dL RDW 13.9 (11.5-15.5) % Plt Count 299 (150-450) k/uL Neutrophils % 88 % Lymphocytes % 7 % Monocytes % 4 % Eosinophils % 0 % Basophils % 1 % Neutrophils # 7.4 (1.3-7.7) k/uL Lymphocytes # 0.6 L (1.0-4.8) k/uL Monocytes # 0.3 (0-1.0) k/uL Eosinophils # 0.0 (0-0.7) k/uL Basophils # 0.0 (0-0.2) k/uL PT 11.1 (9.0-12.0) sec INR 1.1 (<1.2) APTT 25.2 (22.0-30.0) sec Sodium 133 L (137-145) mmol/L Potassium 4.2 (3.5-5.1) mmol/L Chloride 100 (98-107) mmol/L Carbon Dioxide 22 (22-30) mmol/L Anion Gap 11 mmol/L BUN 20 H (7-17) mg/dL Creatinine 1.20 H (0.52-1.04) mg/dL Est GFR (CKD-EPI)AfAm 62 (>60 ml/min/1.73 sqM) Est GFR (CKD-EPI)NonAf 54 (>60 ml/min/1.73 sqM) Glucose 100 H (74-99) mg/dL Plasma Lactic Acid Abebe (0.7-2.0) mmol/L Calcium 9.6 (8.4-10.2) mg/dL Total Bilirubin 0.9 (0.2-1.3) mg/dL AST 23 (14-36) U/L ALT 10 (4-34) U/L Alkaline Phosphatase 85 (38-126) U/L Total Protein 7.8 (6.3-8.2) g/dL Albumin 4.1 (3.5-5.0) g/dL 10/23/19 Range/Units 15:55 WBC (3.8-10.6) k/uL RBC (3.80-5.40) m/uL Hgb (11.4-16.0) gm/dL Hct (34.0-46.0) % MCV (80.0-100.0) fL MCH (25.0-35.0) pg MCHC (31.0-37.0) g/dL RDW (11.5-15.5) % Plt Count (150-450) k/uL Neutrophils % % Lymphocytes % % Monocytes % % Eosinophils % % Basophils % % Neutrophils # (1.3-7.7) k/uL Lymphocytes # (1.0-4.8) k/uL Monocytes # (0-1.0) k/uL Eosinophils # (0-0.7) k/uL Basophils # (0-0.2) k/uL PT (9.0-12.0) sec INR (<1.2) APTT (22.0-30.0) sec Sodium (137-145) mmol/L Potassium (3.5-5.1) mmol/L Chloride (98-107) mmol/L Carbon Dioxide (22-30) mmol/L Anion Gap mmol/L BUN (7-17) mg/dL Creatinine (0.52-1.04) mg/dL Est GFR (CKD-EPI)AfAm (>60 ml/min/1.73 sqM) Est GFR (CKD-EPI)NonAf (>60 ml/min/1.73 sqM) Glucose (74-99) mg/dL Plasma Lactic Acid Abebe 1.3 (0.7-2.0) mmol/L Calcium (8.4-10.2) mg/dL Total Bilirubin (0.2-1.3) mg/dL AST (14-36) U/L ALT (4-34) U/L Alkaline Phosphatase (38-126) U/L Total Protein (6.3-8.2) g/dL Albumin (3.5-5.0) g/dL 10/23/19 16:39 EKG performed at 1627 showed normal sinus rhythm prolonged QT. Nonspecific ST and T-wave abnormality. Ventricular rate of 85 beats were minute period. Was 176 most seconds. QRS duration is 92 ms. QT QTc is 418/497 ms (Jackie Gilmore) Disposition <Tobias Hills - Last Filed: 10/23/19 16:43> Is patient prescribed a controlled substance at d/c from ED?: No Time of Disposition: 16:52 <Jackie Gilmore - Last Filed: 10/23/19 16:53> Clinical Impression: Breast abscess, Cellulitis of breast, Failure of outpatient treatment Disposition: ADMITTED IP TO THIS HOSP Condition: Stable Referrals: None,Stated [Primary Care Provider] - 1-2 days
[2019-10-23] MEDS ORDERED: SODIUM CHLORIDE 0.9% 1,000 ML IV ONE (16:14)
[2019-10-23 16:22] LABS: Basophils % (A) 1 %; Eosinophils % (A) 0 %; HCT 41.2 % (34.0-46.0); HGB 13.3 gm/dL (11.4-16.0); Lymphocytes # (A) 0.6 k/uL (1.0-4.8); Lymphocytes % (A) 7 %; MCH 26.2 pg (25.0-35.0); MCHC 32.2 g/dL (31.0-37.0); MCV 81.3 fL (80.0-100.0); Mean Platelet Volume 7.5; Monocytes # (A) 0.3 k/uL (0-1.0); Monocytes % (A) 4 %; Neutrophils # (A) 7.4 k/uL (1.3-7.7); Neutrophils % (A) 88 %; Platelet Count 299 k/uL (150-450); RBC 5.07 m/uL (3.80-5.40); RDW 13.9 % (11.5-15.5); WBC 8.4 k/uL (3.8-10.6)
[2019-10-23 16:30] LABS: Albumin 4.1 g/dL (3.5-5.0); Calcium 9.6 mg/dL (8.4-10.2); Potassium 4.2 mmol/L (3.5-5.1); Total Bilirubin 0.9 mg/dL (0.2-1.3); Total Protein 7.8 g/dL (6.3-8.2)
[2019-10-23 16:31] LABS: INR 1.1 (<1.2); Partial Thromboplastin Time 25.2 sec (22.0-30.0); Prothrombin Time 11.1 sec (9.0-12.0)
[2019-10-23] MEDS: SODIUM CHLORIDE 0.9% 1,000 ML IV SCH ×2 (16:38→23:46)
[2019-10-23] MEDS ORDERED: NALOXONE 0.4 MG/ML 1 ML VIAL IV PRN (16:53)
[2019-10-23] MEDS ORDERED: IBUPROFEN 400 MG TAB PO PRN (16:53)
[2019-10-23] MEDS ORDERED: KETOROLAC 30 MG/ML 1 ML VIAL IVP PRN (16:53)
[2019-10-23] MEDS ORDERED: MORPHINE SULFATE 4 MG/ML SYRINGE IV PRN (16:53)
[2019-10-23] MEDS ORDERED: ACETAMINOPHEN TAB 325 MG TAB PO PRN (16:53)
[2019-10-23] MEDS ORDERED: HYDROcodone/APAP 5-325MG 1 EACH TAB PO PRN (17:56)
--- NOTE | 2019-10-23 17:59 | P.HPIM ---
History of Present Illness H&P Date: 10/23/19 (delayed charting seen at approx 4 pm) Chief Complaint: breast redness and pain patient is a 49-year-old female with history of hyperthyroidism treated with radioactive iodine and now hypothyroid, hypertension, and obesity who presented to the emergency department secondary to right breast redness, abscess, and fevers. She initially noticed some right breast redness approximately 1-1/2 weeks ago. She then went to [facility] was started on some doxycycline but experienced nausea and stopped this medication. She was then seen by her primary care practitioner was started on Keflex but did not have any improvement after approximately 7 doses. She then received an IV dose of Vanco and Levaquin at the outpatient infusion center.on 10/[address] Akhil Hills in the outpatient setting. At that point in time she had a right breast ultrasound on with aspiration of 15 mL of purulent fluid. She was started on Bactrim in addition to the Keflex, after discussion with Dr. Ayala. She was again seen by Dr. Akhil Camacho on 10/21 and had an additional 6 mL of purulent fluid aspirated. Her cultures had already resulted as Proteus. on the morning of 10/22 she is qu ite a fever of 100.1 at work and was feeling overall very fatigued and cloudy. In the emergency department she was noted to have a fever of 100.3.laboratory analysis showed a sodium of 133, BUN 20, creatinine 1.2, and white blood cells were normal at 8.4. She was placed in observation for further monitoring. Patient seen and examined in the emergency department. She recounts the story as told above. She denies any pain in the right breast that she is touching the abscessed area. She states that her appetite has been decreased but she feels as though she has had good oral intake. She denies any body aches but does report overall fatigued and just feeling "not right". She denies any nausea, vomiting, diarrhea, dysuria, cough, shortness of breath, and runny or stuffy nose. She denies any history of prior breast infection, personal history of breast cancer, or family history of breast cancer. She has nulliparous and obese. She had a normal mammogram on 06/14/2019. Review of Systems Pertinent positives and negatives as discussed in HPI, a complete review of systems was performed and all other systems are negative. Past Medical History Past Medical History: Hypertension, Thyroid Disorder History of Any Multi-Drug Resistant Organisms: None Reported Additional Past Surgical History / Comment(s): radioactive iodine Past Anesthesia/Blood Transfusion Reactions: No Reported Reaction Past Psychological History: No Psychological Hx Reported Smoking Status: Never smoker Past Alcohol Use History: None Reported Past Drug Use History: None Reported - Past Family History Father Family Medical History: Coronary Artery Disease (CAD), Diabetes Mellitus, Hypertension, Renal Disease Mother Family Medical History: Congestive Heart Failure (CHF), Coronary Artery Disease (CAD), Diabetes Mellitus, Hypertension, Sleep Apnea/CPAP/BIPAP, Thyroid Disorder Brother(s) Family Medical History: Coronary Artery Disease (CAD), Hypertension Medications and Allergies Home Medications Medication Instructions Recorded Confirmed Type Cetirizine HCl [Zyrtec] 10 mg PO QAM 08/07/18 10/23/19 History Levothyroxine Sodium [Synthroid] 200 mcg PO QAM 08/07/18 10/23/19 History amLODIPine [Norvasc] 5 mg PO QAM 10/18/19 10/23/19 History Cholecalciferol [Vitamin D3 (25 2,000 unit PO DAILY 10/23/19 10/23/19 History Mcg = 1000 Iu)] Losartan/Hydrochlorothiazide 1 tab PO DAILY 10/23/19 10/23/19 History [Losartan-Hctz 100-25 mg Tab] Allergies Allergy/AdvReac Type Severity Reaction Status Date / Time metronidazole [From Flagyl] Allergy Nausea & Verified 10/23/19 17:11 Vomiting moxifloxacin [From Avelox] Allergy Diarrhea Verified 10/23/19 17:11 TYRESE Inhibitors AdvReac Cough Verified 10/23/19 17:11 doxycycline AdvReac Nausea & Verified 10/23/19 17:11 Vomiting Physical Exam Osteopathic Statement: *. No significant issues noted on an osteopathic structural exam other than those noted in the History and Physical/Consult. Vitals: Vital Signs Temp Pulse Resp BP Pulse Ox 10/23/19 17:21 74 18 130/76 99 10/23/19 15:16 100.3 F H 87 16 133/88 99 Intake and Output 10/23/19 10/23/19 10/23/19 06:59 14:59 22:59 Other: Weight 136.531 kg General: non toxic, no distress, appears at stated age, obese Derm: redness of the right breast with abscess area at 3:00, no right axillary, supraclavicular, or cervical lymphadenopathy, no unusual ecchymoses, warm, dry Head: atraumatic, normocephalic, symmetric Eyes: EOMI, no lid lag, anicteric sclera, pupils equal round reactive to light ENT: Nose and ears atraumatic, no thrush, no pharyngeal erythema Neck: No thyromegaly, no cervical lymphadenopathy, trachea midline, supple Mouth: no lip lesion, mucus membranes moist Cardiovascular: S1S2 reg, no murmur, positive posterior tibial pulse bilateral, no edema, capillary refill less than 2 seconds Lungs: CTA bilateral, no rhonchi, no rales , no accessory muscle use Abdominal: soft, nontender to palpation, no guarding, no appreciable organomegaly, normal bowel sounds Ext: no gross muscle atrophy, muscle strength 5 out of 5 in all 4 extremities grossly, no contractures, Neuro: CN II-XI grossly intact, light touch intact all 4 extremities, finger to nose within normal limits, Psych: Alert, oriented, appropriate affect Results CBC & Chem 7: 10/23/19 15:55 10/23/19 15:55 Labs: Abnormal Lab Results - Last 24 Hours (Table) 10/23/19 10/23/19 Range/Units 15:55 15:55 Lymphocytes # 0.6 L (1.0-4.8) k/uL Sodium 133 L (137-145) mmol/L BUN 20 H (7-17) mg/dL Creatinine 1.20 H (0.52-1.04) mg/dL Glucose 100 H (74-99) mg/dL Thrombosis Risk Factor Assmnt - DVT/VTE Prophylaxis DVT/VTE Prophylaxis: Low risk, early ambulation encouraged Assessment and Plan Assessment: Breast abscess with surrounding cellulitis, failed outpatient treatment -Continue with vancomycin and Levaquin -Breast surgery consultation -Nothing by mouth after midnight Hypertension - Hold losartan and HCTZ - norvasc - Follow BP ZULMA and hyponatremia, due to dehydration - IVF - Hold ACEI and diuretic - repeat in AM - Pharmacy to dose vancomycin Hypothyroidism -Resume Synthroid Morbid obesity with BMI 45.8 -Outpatient structured weight loss The patient is placed in observation with an anticipated less than 2 midnight stay for evaluation of [right breast abscess]. DVT prophylaxis: SCDs Discussed with: patient, nursing, ED provider Anticipated discharge date: 1-[address]: home A total of 55 minutes was spent on the care of this complex patient more than 50% of the time was spent in counseling and care coordination.
--- NOTE | 2019-10-23 21:22 | P.GSHP ---
History of Present Illness H&P Date: 10/23/19 Chief Complaint: Abscess/cellulitis right breast Naomie is a 49-year-old white female who presented with a fever to the emergency department. Approximately 2 weeks ago she experienced trauma to her right breast which resulted in an abscess. She was initially treated with oral antibiotics without resolution. She was then seen and an ultrasound was performed last week. Percutaneous drainage of the abscess, with aspiration of approximately 15 mL of purulent fluid was performed. After discussion with Dr. Ayala she was started on Bactrim in addition to Keflex which she had been taking at home. She improved over the weekend. Approximately 2 days ago she was seen in the office an additional 6 mL of purulent fluid was aspirated. She was noted to have decreased erythema of the breast. Today she developed a fever. She was seen in the emergency department and noted to have a fever of 100.3. Her white count was normal at 8.4. She was admitted and started on IV antibiotics. She states she is not having any pain in her breast at this time. She feels that the erythema has decreased. She does have fluctuance in the area of the abscess. Medical history: Prior history of hyperthyroidism treated with radioactive iodine Hypertension Hypothyroidism at this time ALLERGIES: Avelox Flagyl Doxycycline TYRESE inhibitor's Social history: Smoke: Negative Alcohol: Negative Drugs: Negative - Constitutional Constitutional: Reports as per HPI, Reports fever - EENT Comment: wears glasses Ears: deny: decreased hearing, tinnitus - Breasts Breasts: bilateral: as per HPI - Cardiovascular Comment: HTN - Respiratory Respiratory: Denies cough, Denies 7 - Gastrointestinal Gastrointestinal: Denies abdominal pain, Denies diarrhea, Denies nausea, Denies vomiting - Genitourinary (Female) Genitourinary: Denies dysuria, Denies hematuria - Musculoskeletal Musculoskeletal: Denies myalgias - Integumentary Comment: Erythema right breast/resolving cellulitis - Neurological Neurological: Denies numbness, Denies weakness - Psychiatric Psychiatric: Denies anxiety, Denies depression - Endocrine Endocrine: Reports as per HPI - Hematologic/Lymphatic Hematologic/Lymphatic: Reports as per HPI - Allergic/Immunologic Allergic/Immunologic: Reports as per HPI Past Medical History Past Medical History: Hypertension, Thyroid Disorder Additional Past Medical History / Comment(s): hypothyroid History of Any Multi-Drug Resistant Organisms: None Reported Past Surgical History: No Surgical Hx Reported Additional Past Surgical History / Comment(s): radioactive iodine Past Anesthesia/Blood Transfusion Reactions: No Reported Reaction Past Psychological History: No Psychological Hx Reported Smoking Status: Never smoker Past Alcohol Use History: None Reported Past Drug Use History: None Reported - Past Family History Father Family Medical History: Coronary Artery Disease (CAD), Diabetes Mellitus, Hypertension, Renal Disease Mother Family Medical History: Congestive Heart Failure (CHF), Coronary Artery Disease (CAD), Diabetes Mellitus, Hypertension, Sleep Apnea/CPAP/BIPAP, Thyroid Disorder Brother(s) Family Medical History: Coronary Artery Disease (CAD), Hypertension Medications and Allergies Home Medications Medication Instructions Recorded Confirmed Type Cetirizine HCl [Zyrtec] 10 mg PO QAM 08/07/18 10/23/19 History Levothyroxine Sodium [Synthroid] 200 mcg PO QAM 08/07/18 10/23/19 History amLODIPine [Norvasc] 5 mg PO QAM 10/18/19 10/23/19 History Cholecalciferol [Vitamin D3 (25 2,000 unit PO DAILY 10/23/19 10/23/19 History Mcg = 1000 Iu)] Losartan/Hydrochlorothiazide 1 tab PO DAILY 10/23/19 10/23/19 History [Losartan-Hctz 100-25 mg Tab] Allergies Allergy/AdvReac Type Severity Reaction Status Date / Time metronidazole [From Flagyl] Allergy Nausea & Verified 10/23/19 17:11 Vomiting moxifloxacin [From Avelox] Allergy Diarrhea Verified 10/23/19 17:11 TYRESE Inhibitors AdvReac Cough Verified 10/23/19 17:11 doxycycline AdvReac Nausea & Verified 10/23/19 17:11 Vomiting Surgical - Exam Vital Signs Temp Pulse Resp BP Pulse Ox 100.3 F H 87 16 133/88 99 10/23/19 15:16 10/23/19 15:16 10/23/19 15:16 10/23/19 15:16 10/23/19 15:16 BMI 45.8 - General obese - Eyes normal ocular movement - ENT no hearing loss, no congestion - Neck no masses, trachea midline - Respiratory normal respiratory effort, clear to auscultation - Cardiovascular Rhythm: regular Heart Sounds: normal: S1, S2 - Abdomen Abdomen: soft, non tender, no guarding, no rigid, no rebound - Integumentary Erythema right breast decreased from prior exam Area of fluctuance at approximately 1:30 to 2:30 position approximately 3 x 3 cm in size - Neurologic no disoriented, no combative - Musculoskeletal normal gait - Psychiatric oriented to time Breast examination: Right breast: Resolving cellulitis, area of fluctuance at the 1:30 to 2:30 position approximately 3 x 3 cm in size Recent left breast examination multiple positional exam of dominant masses or nodules of concern No axillary adenopathy right or left axilla of concern Results - Labs 10/23/19 15:55 10/23/19 15:55 Abnormal Lab Results - Last 24 Hours (Table) 10/23/19 10/23/19 Range/Units 15:55 15:55 Lymphocytes # 0.6 L (1.0-4.8) k/uL Sodium 133 L (137-145) mmol/L BUN 20 H (7-17) mg/dL Creatinine 1.20 H (0.52-1.04) mg/dL Glucose 100 H (74-99) mg/dL Diabetes panel 10/23/19 Range/Units 15:55 Sodium 133 L (137-145) mmol/L Potassium 4.2 (3.5-5.1) mmol/L Chloride 100 (98-107) mmol/L Carbon Dioxide 22 (22-30) mmol/L BUN 20 H (7-17) mg/dL Creatinine 1.20 H (0.52-1.04) mg/dL Glucose 100 H (74-99) mg/dL Calcium 9.6 (8.4-10.2) mg/dL AST 23 (14-36) U/L ALT 10 (4-34) U/L Alkaline Phosphatase 85 (38-126) U/L Total Protein 7.8 (6.3-8.2) g/dL Albumin 4.1 (3.5-5.0) g/dL Calcium panel 10/23/19 Range/Units 15:55 Calcium 9.6 (8.4-10.2) mg/dL Albumin 4.1 (3.5-5.0) g/dL Pituitary panel 10/23/19 Range/Units 15:55 Sodium 133 L (137-145) mmol/L Potassium 4.2 (3.5-5.1) mmol/L Chloride 100 (98-107) mmol/L Carbon Dioxide 22 (22-30) mmol/L BUN 20 H (7-17) mg/dL Creatinine 1.20 H (0.52-1.04) mg/dL Glucose 100 H (74-99) mg/dL Calcium 9.6 (8.4-10.2) mg/dL Adrenal panel 10/23/19 Range/Units 15:55 Sodium 133 L (137-145) mmol/L Potassium 4.2 (3.5-5.1) mmol/L Chloride 100 (98-107) mmol/L Carbon Dioxide 22 (22-30) mmol/L BUN 20 H (7-17) mg/dL Creatinine 1.20 H (0.52-1.04) mg/dL Glucose 100 H (74-99) mg/dL Calcium 9.6 (8.4-10.2) mg/dL Total Bilirubin 0.9 (0.2-1.3) mg/dL AST 23 (14-36) U/L ALT 10 (4-34) U/L Alkaline Phosphatase 85 (38-126) U/L Total Protein 7.8 (6.3-8.2) g/dL Albumin 4.1 (3.5-5.0) g/dL Assessment and Plan Assessment: Impression: 1. Right breast cellulitis/abscess 2. Hypertension 3. BMI 45.8 4. Hypothyroid 5. Proteus mirabilis from the right breast culture 6. Recent fever believed to be related to cellulitis/abscess of the right breast 7. Other etiology of fever not identified at this time Plan: 1. Antibiotics 2. Incision and drainage of right breast abscess in the operating room Naomie understands the risks and benefits of operative drainage of the right breast abscess. She understands the many bleeding, infection, reaction to the anesthetic. She also understands that drainage may not cause resolution of the total abscess and occasionally may have to re-drain the area. She wishes to proceed.
[2019-10-23 21:57] LABS: Appearance,Urine Clear (Clear); Color,Urine Light Yellow; PH, Urine 5.5 (5.0-8.0); Protein,Urine Negative (Negative); Specific Gravity,Urine 1.006 (1.001-1.035)
[2019-10-23 21:58] LABS: Bilirubin,Urine Negative (Negative); Blood,Urine Negative (Negative); Glucose,Urine (UA) Negative (Negative); Ketones,Urine Negative (Negative); Leukocyte Esterase,Urine Negative (Negative); Nitrite,Urine Negative (Negative); Urobilinogen,Urine <2.0 mg/dL (<2.0)
[2019-10-24] MEDS: LEVOTHYROXINE 100 MCG TAB PO SCH ×2 (05:26→09:03)
[2019-10-24 06:15] LABS: HCT 40.2 % (34.0-46.0); HGB 13.2 gm/dL (11.4-16.0); Hypochromasia Slight; MCHC 32.8 g/dL (31.0-37.0); MCV 82.4 fL (80.0-100.0); Mean Platelet Volume 7.5; Platelet Count 285 k/uL (150-450); RBC 4.89 m/uL (3.80-5.40); RDW 13.7 % (11.5-15.5); WBC 4.2 k/uL (3.8-10.6)
[2019-10-24 06:31] LABS: Calcium 9.1 mg/dL (8.4-10.2); Potassium 3.9 mmol/L (3.5-5.1)
[2019-10-24] MEDS ORDERED: fentaNYL (PF) 50 MCG/ML 2 ML AMP ONE (06:32)
[2019-10-24] MEDS ORDERED: KETAMINE 10 MG/ML 20 ML VIAL ONE (06:32)
[2019-10-24] MEDS ORDERED: MIDAZOLAM 2 MG/2 ML VIAL ONE (06:32)
[2019-10-24] MEDS ORDERED: PROPOFOL 10 MG/ML 20 ML VIAL IV ONE (06:32)
[2019-10-24] MEDS ORDERED: LACTATED RINGERS 1,000 ML BAG IV ONE (06:50)
--- NOTE | 2019-10-24 07:07 | P.OP ---
Date of Procedure: 10/24/19 Preoperative Diagnosis: Right breast abscess Postoperative Diagnosis: Same Procedure(s) Performed: Incision and drainage of right breast abscess Anesthesia: MAC Surgeon: Daniella Jung Estimated Blood Loss (ml): 5 IV fluids (ml): 300 Pathology: none sent Condition: stable Disposition: floor Indications for Procedure: Abscess right breast Operative Findings: Serial purulent fluid Description of Procedure: The patient is a 49 -year-old white female who presented initially with a right breast abscess and cellulitis. Attempt at percutaneous drainage and antibiotic therapy was initially tried. The patient however began to develop fevers and it was felt that the area should be drained in the operating room. Risks and benefits of the procedure were discussed with the patient. She understood and wished to proceed. The patient was taken to the operating room. Following sedation the right breast was prepped and draped in a sterile fashion. An incision was made over the area of greatest fluctuance. Approximately 80 mL of serosanguineous/purulent fluid was drained. The abscess cavity was opened using blunt dissection. The size of the cavity was approximately 9 cm x 3 cm. Cultures were obtained. The wound was well irrigated. It was then packed using iodoform gauze. The patient tolerated procedure in stable condition. All instrument and sponge counts were correct at the end of the case.
[2019-10-24] MEDS ORDERED: LORATADINE 10 MG TAB PO SCH (09:00)
[2019-10-24] MEDS ORDERED: VANCOMYCIN 2,000 MG in SODIUM CHLORIDE 0.9% 500 ML 500 ML IVPB SCH (09:00)
[2019-10-24] MEDS ORDERED: amLODIPine 5 MG TAB PO SCH (09:00)
[2019-10-24 10:00] VITALS: RESP 18
[2019-10-24 12:48] VITALS: BP 107/70; TEMP 98
--- NOTE | 2019-10-24 14:42 | P.DS ---
Providers Date of admission: 10/23/19 16:43 Expected date of discharge: 10/24/19 Attending physician: Erma Camarena DO Consults: 10/23/19 16:53 Consult Physician Stat Consulting Provider: Daniella Jung Consult Reason/Comments: Breast abscess, failure outpatient Do you want consulting provider notified?: Yes Primary care physician: Stated None Hospital Course: Discharge Diagnosis: Right breast abscess with surrounding cellulitis, failed outpatient treatment Hypertension ZULMA with hyponatremia due tp dehydration Hypothyroidism Morbid obesity with BMI 45.8 Hospital Course: Patient is a 49-year-old female with history of hyperthyroidism treated with radioactive iodine and now hypothyroid, hypertension, and obesity who presented to the emergency department secondary to right breast redness, abscess, and fevers. She initially noticed some right breast redness approximately 1-1/2 weeks ago. She then went to [facility] was started on some doxycycline but experienced nausea and stopped this medication. She was then seen by her primary care practitioner was started on Keflex but did not have any improvement after approximately 7 doses. She then received an IV dose of Vanco and Levaquin at the outpatient infusion center.on 10/[address] seen by Dr[address] Akhil Hills in the outpatient setting. At that point in time she had a right breast ultrasound on with aspiration of 15 mL of purulent fluid. She was started on Bactrim in addition to the Keflex, after discussion with Dr. Ayala. She was again seen by Dr. Akhil Camacho on 10/21 and had an additional 6 mL of purulent fluid aspirated. Her cultures had already resulted as Proteus. on the morning of 10/22 she is quite a fever of 100.1 at work and was feeling overall very fatigued and cloudy. In the emergency department she was noted to have a fever of 100.3.laboratory analysis showed a sodium of 133, BUN 20, creatinine 1.2, and white blood cells were normal at 8.4. She was placed in observation for further monitoring. She was seen by Dr. Akhil Hills and underwent operative I and D on 10/24/2019. She tolerated the procedure well and was determined stable for discharge home. She will complete the keflex and bactrim. She will follow with Dr. Akhil Hills in the morning. She was given an Rx for norco for pain and will do daily dressing changes. On discharge, the patient has been prescribed norco for the treatment of acute pain. They have been provided a 7 day supply and MAPS was checked on [id number]. I have counseled them on the risk of opiate medications including addiction and overdose. We also discussed that mixing opiate medications with benzodiazepines, alcohol, muscle relaxers, and other drugs that depress the central nervous system can lead to serious health risks including overdose, , and disability. I informed them that it is a felony to illegally deliver, sell, or share a controlled substance. I have instructed them that unused opiates can be disposed of at a drug takeback location, which includes the [facility] and the [facility]. The Opioid start talking form has been signed. I have referred them back to their primary care physician for follow-up care. Patient seen and examined at bedside. Doing well, tired from anesthesia, no pain, no nausea or vomiting. Vital signs reviewed and stable. General: non toxic, no distress, appears at stated age Derm: Dressing in place over right breast, warm, dry Head: atraumatic, normocephalic, symmetric Eyes: EOMI, no lid lag, anicteric sclera Mouth: no lip lesion, mucus membranes moist Cardiovascular: S1S2 reg, no murmur, positive posterior tibial pulse bilateral, Lungs: CTA bilateral, no rhonchi, no rales , no accessory muscle use Abdominal: soft, nontender to palpation, no guarding, no appreciable organomegaly Ext: no gross muscle atrophy, no edema, no contractures Neuro: CN II-XI grossly intact, no focal neuro deficits Psych: Alert, oriented, appropriate affect A total of 25 minutes of time were spent preparing this complex discharge summary . Patient Condition at Discharge: Stable Plan - Discharge Summary New Discharge Prescriptions: New Sulfamethox-Tmp 800-160Mg [Bactrim DS 800-160 mg] 1 tab PO Q12HR #10 tab Cephalexin [Keflex] 500 mg PO Q8HR 5 Days #15 cap HYDROcodone/APAP 5-325MG [[place] 5-325] 1 each PO Q6HR PRN #28 tab PRN Reason: Moderate Pain Continue Levothyroxine Sodium [Synthroid] 200 mcg PO QAM Cetirizine HCl [Zyrtec] 10 mg PO QAM amLODIPine [Norvasc] 5 mg PO QAM Cholecalciferol [Vitamin D3 (25 Mcg = 1000 Iu)] 2,000 unit PO DAILY Losartan/Hydrochlorothiazide [Losartan-Hctz 100-25 mg Tab] 1 tab PO DAILY Discharge Medication List Cetirizine HCl [Zyrtec] 10 mg PO QAM 08/07/18 [History] Levothyroxine Sodium [Synthroid] 200 mcg PO QAM 08/07/18 [History] amLODIPine [Norvasc] 5 mg PO QAM 10/18/19 [History] Cholecalciferol [Vitamin D3 (25 Mcg = 1000 Iu)] 2,000 unit PO DAILY 10/23/19 [History] Losartan/Hydrochlorothiazide [Losartan-Hctz 100-25 mg Tab] 1 tab PO DAILY 10/23/19 [History] Cephalexin [Keflex] 500 mg PO Q8HR 5 Days #15 cap 10/24/19 [Rx] HYDROcodone/APAP 5-325MG [[place] 5-325] 1 each PO Q6HR PRN #28 tab 10/24/19 [Rx] Sulfamethox-Tmp 800-160Mg [Bactrim DS 800-160 mg] 1 tab PO Q12HR #10 tab 10/24/19 [Rx] Follow up Appointment(s)/Referral(s): None,Stated [Primary Care Provider] - 1-2 days ( office will call with follow up appointment for patient) Daniella Jung MD [STAFF PHYSICIAN] - As Needed Activity/Diet/Wound Care/Special Instructions: Activity: as tolerated, no lifting greater than 5 pounds until seen by Dr. Landaverde Diet: regular Wound Care: Daily dressing changes Special Instructions: Off work through 10/28/2019 Discharge Disposition: HOME SELF-CARE
[2019-10-30 09:27] VITALS: PULSE 67
== END 2019-10-24 15:03 | disposition home or self-care (01) ==
LOC: EC 15:10 → 1SOBS 16:43
PROVIDERS: ADMIT Internal Medicine; ATTEND Internal Medicine
DX: N61.1 Abscess of the breast and nipple (principal); B96.4 Proteus (mirabilis) (morganii) as the cause of diseases classified elsewhere; N17.9 Acute kidney failure, unspecified; E87.1 Hypo-osmolality and hyponatremia; E86.0 Dehydration; I10 Essential (primary) hypertension; E03.9 Hypothyroidism, unspecified; E66.01 Morbid (severe) obesity due to excess calories; Z68.42 Body mass index [BMI] 45.0-49.9, adult; Z03.818 Encounter for observation for suspected exposure to other biological agents ruled out; Z79.890 Hormone replacement therapy; Z79.899 Other long term (current) drug therapy; Z88.1 Allergy status to other antibiotic agents; Z88.3 Allergy status to other anti-infective agents; Z88.8 Allergy status to other drugs, medicaments and biological substances; Z86.39 Personal history of other endocrine, nutritional and metabolic disease; Z83.3 Family history of diabetes mellitus; Z82.49 Family history of ischemic heart disease and other diseases of the circulatory system; Z84.1 Family history of disorders of kidney and ureter; Z83.49 Family history of other endocrine, nutritional and metabolic diseases; Z82.0 Family history of epilepsy and other diseases of the nervous system
CPT/HCPCS: 96366 ×2; 96368; 96365; 99285; 36415; 93005; 80053; 80048; 83605; 85025; 85027; 85610; 85730; 81003; 87040; 87070; 87205; 87075; 19020; G0378 ×2; U0003; J2250; J3370 ×2; J0696; J3010; J1956; J2704

== ENCOUNTER → 2019-10-25 | Outpatient (CLI) | payer MEDICAID ==
--- NOTE | 2019-10-25 12:37 | P.PN ---
Progress Note - Text Progress Note Date: 10/25/19 Naomie is a 49-year-old white female [place] [id number]. She comes today for packing to be changed. The patient is doing well without any complaints/problems withut any fever or chills. She was noted to have Proteus mirabilis on prior cultures and this was sensitive to Keflex and Bactrim. She was sent home yesterday with Keflex and Bactrim. Physical exam: Area of the right breast is decreased erythema Packing changed The 2 inch iodoform gauze was removed, the wound was irrigated with saline solution, a 1 inch packing of iodoform gauze was placed Impression: 1. Patient tolerated dressing changes without difficulty 2. Resolving right breast abscess 3. To continue present therapy Plan: 1. Follow-up in 2 weeks 2. Follow up sooner if any questions 3. Discussed home care, however at this time the patient is going to do her own dressing changes Cc: Dr. Marte
[2019-10-25 12:41] VITALS: BP 132/85; PULSE 95; RESP 18; TEMP 98
== END | disposition home or self-care (01) ==
LOC: WWCWWP 12:15
PROVIDERS: ATTEND Surgery
DX: Z53.9 Procedure and treatment not carried out, unspecified reason (principal)

== ENCOUNTER → 2019-11-07 | Outpatient (CLI) | payer MEDICAID ==
[~2019-11-07] MED LIST changes: +LACTATED RINGERS 1,000 ML IV ONE; -LEVOFLOXACIN 500MG-D5W PMX 500 MG in DEXTROSE/WATER 1 100ML.BAG IVPB NR; -SODIUM CHLORIDE 0.9% 500 ML 500 ML in EMPTY BAG 1 BAG IV PRN; -VANCOMYCIN 1,000 MG in SODIUM CHLORIDE 0.9% 250 ML IVPB NR
--- NOTE | 2019-11-07 12:03 | P.PN ---
Progress Note - Text Progress Note Date: 11/07/19 Naomie is a 49-year-old white female status post incision and drainage of right breast abscess on . She is doing well post procedure. She has no complaints. The area of packing has decreased in size. She is not complaining of any fever, chills or pain in her breast. Physical exam: Lungs: Clear Heart: Regular rate and rhythm Right breast area of packing has some surrounding mild erythema does not appear to be infection The depth of the area packed is 2.6 cm. The packing is changed no evidence of any active infection at this time. Impression/Plan: 1. I&D area of abscess right breast/no obvious infection at this time 2. Continue present therapy 3. Follow-up in 2 weeks CC: Dr. Marte
[2019-11-07 12:08] VITALS: BP 131/93; PULSE 89; RESP 18; TEMP 98.3
== END | disposition home or self-care (01) ==
LOC: WWCWWP 11:37
PROVIDERS: ATTEND Surgery
DX: Z53.9 Procedure and treatment not carried out, unspecified reason (principal)

== ENCOUNTER → 2020-01-23 | Outpatient (CLI) | payer MEDICAID ==
[2020-01-23 12:41] VITALS: BP 141/90; PULSE 83; RESP 18; TEMP 97.9
--- NOTE | 2020-01-23 13:12 | P.PN ---
Subjective Progress Note Date: 01/23/20 Principal diagnosis: Follow-up right breast abscess Naomie is a 49-year-old white female who presented with a fever to the emergency department in October of 2019. Approximately 2 weeks prior she experienced trauma to her right breast which resulted in an abscess. She was initially treated with oral antibiotics without resolution. She was then seen and an ultrasound was performed last week. Percutaneous drainage of the abscess, with aspiration of approximately 15 mL of purulent fluid was performed. After discussion with Dr. Ayala she was started on Bactrim in addition to Keflex which she had been taking at home. She improved over the weekend. Approximately 2 days prior to being seen in the ER she was seen in the office and an additional 6 mL of purulent fluid was aspirated. She was noted to have decreased erythema of the breast. She than developed a fever. She was seen in the emergency department and noted to have a fever of 100.3. Her white count was normal at 8.4. She was admitted and started on IV antibiotics, she under went I&D in the operating room on 10-18-19. At this time the patient has no fever or chills. She has no masses or drainage from her breast. Has no nipple discharge of concern. She had a bilateral mammogram June 2019 which was BIRADS 1. Family history: Negative for cancer Hormonal history: Menarche: 14 , misscarriage periods regular BCP: none hormones: none Surgical history: 1. Incision and drainage of right breast abscess 2. [place] teeth removed Medical history: Prior history of hyperthyroidism treated with radioactive iodine Hypertension Hypothyroidism at this time ALLERGIES: Avelox Flagyl Doxycycline TYRESE inhibitor's Social history: Smoke: Negative Alcohol: Negative Drugs: Negative - Constitutional Constitutional: Reports as per HPI, Reports fever - EENT Comment: wears glasses Ears: deny: decreased hearing, tinnitus - Breasts Breasts: bilateral: as per HPI - Cardiovascular Comment: HTN - Respiratory Respiratory: Denies cough, - Gastrointestinal Gastrointestinal: Denies abdominal pain, Denies diarrhea, Denies nausea, Denies vomiting - Genitourinary (Female) Genitourinary: Denies dysuria, Denies hematuria - Musculoskeletal Musculoskeletal: Denies myalgias - Integumentary Comment: prior right breast abscess - Neurological Neurological: Denies numbness, Denies weakness - Psychiatric Psychiatric: Denies anxiety, Denies depression - Endocrine Endocrine: Reports as per HPI - Hematologic/Lymphatic Hematologic/Lymphatic: Reports as per HPI - Allergic/Immunologic Allergic/Immunologic: Reports as per HPI Objective - Vital Signs Vital signs: Vital Signs Temp 97.9 F 01/23/20 12:39 Pulse 83 01/23/20 12:39 Resp 18 01/23/20 12:39 BP 141/90 01/23/20 12:39 Pulse Ox 100 01/23/20 12:39 Intake & Output 01/22/20 01/23/20 01/23/20 18:59 06:59 18:59 Weight 137.438 kg - Exam BMI 46.1 - Constitutional General appearance: Present: obese - EENT Eyes: Present: EOMI ENT: Present: hearing grossly normal - Neck Neck: Present: normal ROM - Respiratory Respiratory: bilateral: CTA - Cardiovascular Rhythm: regular Heart sounds: normal: S1, S2 - Gastrointestinal General gastrointestinal: Present: normal bowel sounds, soft - Integumentary Integumentary: Present: normal turgor - Musculoskeletal Musculoskeletal: Present: gait normal - Psychiatric Psychiatric: Present: A&O x's 3, appropriate affect, intact judgment & insight - Additional findings Additional findings: Breast Exam: BRA: 54D inspection: Bilateral grade 3 ptosis Palpation: Right breast: There was scar from prior I&D of abscess, fibrocystic changes, no dominant masses or nodules of concern with evidence of any infection Right axilla: No adenopathy of concern Left breast: Fibrocystic changes no dominant masses or nodules of concern Left axilla: No adenopathy of concern Assessment and Plan Assessment: Impression: 1. Resolved right breast abscess 2. Hypothyroid 3. Hypertension 4. Fibrocystic breast changes Plan: 1. Bilateral mammogram June 2020 2. Follow-up at that time 3. Follow up sooner if any questions or concerns Cc: Dr. Marte encounter 15 minutes, > 50% of time on planning and counselling Time with Patient: Less than 30
== END | disposition home or self-care (01) ==
LOC: WWCWWP 12:31
PROVIDERS: ATTEND Surgery
DX: Z53.9 Procedure and treatment not carried out, unspecified reason (principal)

== ENCOUNTER → 2020-04-03 | Outpatient (CLI) | payer MEDICAID ==
[2020-04-03 12:51] LABS: Basophils # (A) 0.1 k/uL (0-0.2); Basophils % (A) 1 %; Eosinophils # (A) 0.1 k/uL (0-0.7); Eosinophils % (A) 1 %; HCT 40.5 % (34.0-46.0); HGB 13.2 gm/dL (11.4-16.0); Lymphocytes # (A) 2.7 k/uL (1.0-4.8); Lymphocytes % (A) 25 %; MCHC 32.6 g/dL (31.0-37.0); MCV 79.6 fL (80.0-100.0); Mean Platelet Volume 7.2; Monocytes # (A) 0.5 k/uL (0-1.0); Monocytes % (A) 5 %; Neutrophils # (A) 7.2 k/uL (1.3-7.7); Neutrophils % (A) 67 %; Platelet Count 276 k/uL (150-450); RBC 5.09 m/uL (3.80-5.40); RDW 14.7 % (11.5-15.5); WBC 10.7 k/uL (3.8-10.6)
[2020-04-03 19:16] LABS: African American GFR (CKD) 101.8 (60.0-200.0); Albumin/Globulin Ratio 1.29 (1.60-3.17); Anion Gap 9.6 mmol/L (4.00-12.00); BUN/Creat Ratio 27.5 Ratio (12.00-20.00); Calcium 9.8 mg/dL (8.7-10.3); Carbon Dioxide 26.4 mmol/L (21.6-31.8); Chol/HDL Ratio 3.26; Globulin 3.1 g/dL (1.6-3.3); LDL Cholesterol,Calculated 77.8 mg/dL (0.0-131.0); Non-African American GFR(CKD) 87.8 (60.0-200.0); Potassium 3.7 mmol/L (3.5-5.5); Total Bilirubin 0.6 mg/dL (0.3-1.2); Total Protein 7.1 g/dL (6.2-8.2); VLDL Calculation 28.2 mg/dL (5.00-40.00)
[2020-04-03 19:24] LABS: T4, Free (Free Thyroxine) 1.8 ng/dL (0.80-1.80)
== END | disposition home or self-care (01) ==
LOC: LABWHC1 12:11
PROVIDERS: ATTEND Internal Medicine Critical Care Medicine
DX: Z00.00 Encounter for general adult medical examination without abnormal findings (principal); I10 Essential (primary) hypertension; E03.9 Hypothyroidism, unspecified; E55.9 Vitamin D deficiency, unspecified
CPT/HCPCS: 36415; 80053; 80061; 82306; 84439; 84443; 85025

== ENCOUNTER → 2020-06-15 | Outpatient (CLI) | payer MEDICAID ==
--- NOTE | 2020-06-16 11:09 | MM ---
Reason for exam: screening (asymptomatic). Last mammogram was performed 1 year ago. History: Patient is nulliparous. Benign US breast aspiration single RT of the right breast, October 18, 2019. Took hormonal contraceptives for 4 years. Physical Findings: A clinical breast exam by your physician is recommended on an annual basis and results should be correlated with mammographic findings. MG 3D Screening Mammo W/Cad Bilateral CC, MLO, and XCCL view(s) were taken. CV view(s) were taken of the left breast. Prior study comparison: June 14, 2019, bilateral MG 3d screening mammo w/cad. May 22, 2018, bilateral MG 3d screening mammo w/cad. April 07, 2017, bilateral MG screening mammo w CAD. The breast tissue is heterogeneously dense. This may lower the sensitivity of mammography. There is chronic nodularity bilaterally. There is no discrete abnormality. ASSESSMENT: Benign, BI-RAD 2 RECOMMENDATION: Routine screening mammogram of both breasts in 1 year.
== END | disposition home or self-care (01) ==
LOC: RADMAMWWP 07:18
PROVIDERS: ATTEND Surgery
DX: Z12.31 Encounter for screening mammogram for malignant neoplasm of breast (principal)
CPT/HCPCS: 77063; 77067

== ENCOUNTER → 2020-06-19 | Outpatient (CLI) | payer MEDICAID ==
[2020-06-19 11:45] VITALS: BP 142/93; PULSE 68; RESP 18; TEMP 97.5
--- NOTE | 2020-06-19 11:59 | P.PN ---
Subjective Progress Note Date: 06/19/20 Principal diagnosis: fibrocystic breast exam Naomie is a 49-year-old white female who initially presented with a fever to the emergency department in October of 2019. Approximately 2 weeks prior she experienced trauma to her right breast which resulted in an abscess. She was initially treated with oral antibiotics without resolution. She was then seen and an ultrasound was performed . Percutaneous drainage of the abscess, with aspiration of approximately 15 mL of purulent fluid was performed. After discussion with Dr. Ayala she was started on Bactrim in addition to Keflex which she had been taking at home. She improved over the weekend. Approximately 2 days prior to being seen in the ER she was seen in the office and an additional 6 mL of purulent fluid was aspirated. She was noted to have decreased erythema of the breast. She than developed a fever. She was seen in the emergency department and noted to have a fever of 100.3. Her white count was normal at 8.4. She was admitted and started on IV antibiotics, she under went I&D in the operating room on 10-18-19. She had a bilateral mammogram June 2019 which was BIRADS 1. Today Naomie presents for breast exam and mammogram results. She had a bilateral mammogram on 06-15-20, this was Benign Birad 2. She is not complaining of any pain in her breast. She has no lumps masses or nodules for which she is concerned. No nipple drainage or discharge of concern. Family history: Negative for cancer Hormonal history: Menarche: 14 , misscarriage periods regular BCP: none hormones: none Surgical history: 1. Incision and drainage of right breast abscess 2. [place] teeth removed Medical history: Prior history of hyperthyroidism treated with radioactive iodine Hypertension Hypothyroidism at this time ALLERGIES: Avelox Flagyl Doxycycline TYRESE inhibitor's Social history: Smoke: Negative Alcohol: Negative Drugs: Negative - Constitutional Constitutional: Reports as per HPI, Reports fever - EENT Comment: wears glasses Ears: deny: decreased hearing, tinnitus - Breasts Breasts: bilateral: as per HPI - Cardiovascular Comment: HTN - Respiratory Respiratory: Denies cough, - Gastrointestinal Gastrointestinal: Denies abdominal pain, Denies diarrhea, Denies nausea, Denies vomiting - Genitourinary (Female) Genitourinary: Denies dysuria, Denies hematuria - Musculoskeletal Musculoskeletal: Denies myalgias - Integumentary Comment: prior right breast abscess - Neurological Neurological: Denies numbness, Denies weakness - Psychiatric Psychiatric: Denies anxiety, Denies depression - Endocrine Endocrine: Reports as per HPI - Hematologic/Lymphatic Hematologic/Lymphatic: Reports as per HPI - Allergic/Immunologic Allergic/Immunologic: Reports as per HPI Objective - Vital Signs Vital signs: Vital Signs Temp 97.5 F L 06/19/20 11:42 Pulse 68 06/19/20 11:42 Resp 18 06/19/20 11:42 BP 142/93 06/19/20 11:42 Pulse Ox 100 06/19/20 11:42 Intake & Output 06/18/20 06/19/20 06/19/20 18:59 06:59 18:59 Weight 139.253 kg - Exam BMI 46.7 - Constitutional General appearance: Present: cooperative - EENT ENT: Present: hearing grossly normal - Neck Neck: Present: normal ROM - Respiratory Respiratory: bilateral: CTA - Cardiovascular Rhythm: regular Heart sounds: normal: S1, S2 - Gastrointestinal General gastrointestinal: Present: normal bowel sounds, soft - Integumentary Integumentary: Present: normal turgor - Musculoskeletal Musculoskeletal: Present: gait normal - Psychiatric Psychiatric: Present: A&O x's 3 - Additional findings Additional findings: breast exam: BRA: 50D Inspection: Bilateral grade 3 ptosis Palpation: Right breast: Slightly larger than the left breast, no dominant masses or nodules of concern, well-healed scar from prior incision and drainage of abscess Right axilla: No adenopathy of concern Left breast: No dominant masses or nodules of concern on multi-positional exam, fibrocystic changes Left axilla: No adenopathy of concern Assessment and Plan Assessment: Impression: 1. Fibrocystic breast changes bilaterally 2. Hypothyroid 3. Hypertension Plan: 1. Repeat bilateral mammogram in 1 year with physician exam at that time 2. Follow-up sooner if any questions or concerns Cc: Dr. Marte Encounter 15 minutes time spent in reviewing medical records, physical examination, counseling.
== END | disposition home or self-care (01) ==
LOC: WWCWWP 11:32
PROVIDERS: ATTEND Surgery
DX: Z53.9 Procedure and treatment not carried out, unspecified reason (principal)

== ENCOUNTER 2020-12-24 08:24 | Emergency (ER) | payer MEDICAID ==
[2020-12-24] MEDS ORDERED: IBUPROFEN 600 MG TAB PO STA (09:53)
[2020-12-24 10:14] LABS: Basophils % (A) 0 %; Eosinophils # (A) 0.1 k/uL (0-0.7); Eosinophils % (A) 1 %; HCT 40.9 % (34.0-46.0); HGB 13.3 gm/dL (11.4-16.0); Hypochromasia Slight; Lymphocytes # (A) 1.8 k/uL (1.0-4.8); Lymphocytes % (A) 16 %; MCH 27.1 pg (25.0-35.0); MCHC 32.6 g/dL (31.0-37.0); MCV 83.2 fL (80.0-100.0); Mean Platelet Volume 7.8; Monocytes # (A) 0.6 k/uL (0-1.0); Monocytes % (A) 6 %; Neutrophils # (A) 8.2 k/uL (1.3-7.7); Neutrophils % (A) 76 %; Platelet Count 318 k/uL (150-450); RBC 4.92 m/uL (3.80-5.40); RDW 15.4 % (11.5-15.5); WBC 10.9 k/uL (3.8-10.6)
[2020-12-24 10:22] LABS: ALT 8 U/L (4-34); AST 18 U/L (14-36); African American GFR (CKD) >90 (>60 ml/min/1.73 sqM); Albumin 3.8 g/dL (3.5-5.0); Alkaline Phosphatase 100 U/L (38-126); Anion Gap 8 mmol/L; Blood Urea Nitrogen 17 mg/dL (7-17); Calcium 9.6 mg/dL (8.4-10.2); Carbon Dioxide 25 mmol/L (22-30); Chloride 100 mmol/L (98-107); Glucose 112 mg/dL (74-99); Non-African American GFR(CKD) >90 (>60 ml/min/1.73 sqM); Potassium 3.8 mmol/L (3.5-5.1); Sodium 133 mmol/L (137-145); Total Bilirubin 1.1 mg/dL (0.2-1.3); Total Protein 7.4 g/dL (6.3-8.2)
[2020-12-24 10:26] LABS: Partial Thromboplastin Time 24.4 sec (22.0-30.0); Prothrombin Time 10.7 sec (9.0-12.0)
--- NOTE | 2020-12-24 10:39 | CT ---
EXAMINATION TYPE: CT chest angio for PE DATE OF EXAM: 12/24/2020 COMPARISON: None HISTORY: Shortness of breath CT DLP: 1092.9 mGycm CONTRAST: CT chest with contrast and 3D reconstruction with MIP imaging is performed with IV Contrast, patient injected with 100, wasted 11 ml mL of Isovue 370. Contrast-enhanced CT of the chest was performed through the course of the pulmonary arteries with zoya g and mediastinal window settings submitted. 3D reconstruction with MIP imaging was also performed. PULMONARY ARTERIES: The pulmonary arteries and their major tributaries are patent. I do not see kortney dence for sizable filling defect to suggest pulmonary embolic process. LUNGS: The lungs are clear and free of infiltrate. No evidence for atelectasis. No pulmonary nodule or mass is detected. No pleural effusion. MEDIASTINUM: Thoracic aorta is of normal caliber,however, evaluation is limited given timing of the contrast bolus. If there is concern for thoracic aortic pathology consider PEG. Correlate clinicall y . The heart is not enlarged. No evidence for mediastinal mass. No mediastinal lymph nodes greater than 1cm. HILAR STRUCTURES: No evidence for mass. No hilar lymph nodes greater than 1 cm. UPPER ABDOMEN: No significant abnormality is seen. IMPRESSION: 1. No evidence for Pulmonary embolism at this time.
--- NOTE | 2020-12-24 11:21 | US ---
EXAMINATION TYPE: US venous doppler duplex LE RT DATE OF EXAM: 12/24/2020 11:11 AM COMPARISON: NONE CLINICAL HISTORY: swelling. pain and edema right leg. varicose vein surgery right leg 1 week ago SIDE PERFORMED: right TECHNIQUE: The lower extremity deep venous system is examined utilizing real time linear array sonog percy with graded compression, doppler sonography and color-flow sonography. VESSELS IMAGED: Common Femoral Vein Deep Femoral Vein Greater Saphenous Vein * Femoral Vein Popliteal Vein Small Saphenous Vein * Proximal Calf Veins (* superficial vessels) Right Leg: technical limitations due to patient's body habitus. no evidence of DVT as visualized. un able to visualize lower femoral vein for compression. superficial thrombus noted within right greater saphenous vein and within patient's area of concern ( right medial upper thigh) IMPRESSION: technical limitations due to patient's body habitus. no evidence of DVT as visualized. u nable to visualize lower femoral vein for compression. superficial thrombus noted within right greate r saphenous vein and within patient's area of concern ( right medial upper thigh
--- NOTE | 2020-12-24 12:43 | ED ---
SOB HPI - General Chief Complaint: Shortness of Breath Stated Complaint: SOB Time Seen by Provider: 12/24/20 08:25 Source: patient Mode of arrival: ambulatory Limitations: no limitations - History of Present Illness Initial Comments: 50-year-old female with past medical history of hypertension who presents to the emergency department with reported shortness of breath. She had a varicose vein stripping and ablation done on Monday by Dr. Ignacio at [facility]. States that she received general anesthesia for the procedure. Denies any humberto onal anesthesia. This weekend she states that she felt mildly nauseous and yesterday began having some shortness of breath. States that the shortness of breath is exertional. No associated chest pain. Denies fevers, chills or cough. No history of DVT or PE. Does have some lower extremity swelling where her procedure was performed. Patient is not on any blood thinners. The patient does have an area of swelling, redness and warmth to the proximalmedial aspect of the right thigh. She states she has been taking some Motrin for pain control. Denies any drainage from her surgical incisions. She does have a follow-up appointment on Monday to see Dr. Ignacio. Denies previous history of cardiac or lung disease. No other alleviating, Percepting or modifying factors - Related Data Home Medications Medication Instructions Recorded Confirmed Cetirizine HCl [Zyrtec] 10 mg PO DAILY 08/07/18 12/24/20 Levothyroxine Sodium [Synthroid] 200 mcg PO DAILY 08/07/18 12/24/20 amLODIPine [Norvasc] 5 mg PO DAILY 10/18/19 12/24/20 Cholecalciferol [Vitamin D3 (25 5,000 unit PO DAILY 10/23/19 12/24/20 Mcg = 1000 Iu)] Losartan/Hydrochlorothiazide 1 tab PO DAILY 10/23/19 12/24/20 [Losartan-Hctz 100-25 mg Tab] Allergies Allergy/AdvReac Type Severity Reaction Status Date / Time metronidazole [From Flagyl] Allergy Nausea & Verified 12/24/20 11:57 Vomiting moxifloxacin [From Avelox] Allergy Diarrhea Verified 12/24/20 11:57 TYRESE Inhibitors AdvReac Cough Verified 12/24/20 11:57 doxycycline AdvReac Nausea & Verified 12/24/20 11:57 Vomiting Review of Systems ROS Statement: Those systems with pertinent positive or pertinent negative responses have been documented in the HPI. ROS Other: All systems not noted in ROS Statement are negative. Past Medical History Past Medical History: Hypertension, Thyroid Disorder Additional Past Medical History / Comment(s): hypothyroid History of Any Multi-Drug Resistant Organisms: None Reported Past Surgical History: No Surgical Hx Reported Additional Past Surgical History / Comment(s): radioactive iodine, varicose vein surgery Past Anesthesia/Blood Transfusion Reactions: No Reported Reaction Past Psychological History: No Psychological Hx Reported Smoking Status: Never smoker Past Alcohol Use History: None Reported Past Drug Use History: None Reported - Past Family History Father Family Medical History: Coronary Artery Disease (CAD), Diabetes Mellitus, Hypertension, Renal Disease Mother Family Medical History: Congestive Heart Failure (CHF), Coronary Artery Disease (CAD), Diabetes Mellitus, Hypertension, Sleep Apnea/CPAP/BIPAP, Thyroid Disorder Brother(s) Family Medical History: Coronary Artery Disease (CAD), Hypertension General Exam Limitations: no limitations General appearance: alert, in no apparent distress Head exam: Present: atraumatic, normocephalic, normal inspection Eye exam: Present: normal appearance, PERRL, EOMI. Absent: scleral icterus, conjunctival injection, periorbital swelling ENT exam: Present: normal exam, mucous membranes moist Neck exam: Present: normal inspection. Absent: tenderness, meningismus, lymphadenopathy Respiratory exam: Present: normal lung sounds bilaterally. Absent: respiratory distress, wheezes, rales, rhonchi, stridor Cardiovascular Exam: Present: regular rate, normal rhythm, normal heart sounds. Absent: systolic murmur, diastolic murmur, rubs, gallop, clicks GI/Abdominal exam: Present: soft, normal bowel sounds. Absent: distended, tenderness, guarding, rebound, rigid Extremities exam: Present: full ROM, tenderness (proximal medal thigh. ), normal capillary refill, pedal edema, other (multiple healing incision covered with steri strips measuring 1 cm each. No pustular drainage). Absent: joint swelling, calf tenderness Back exam: Present: normal inspection Neurological exam: Present: alert, oriented X3, CN II-XII intact Psychiatric exam: Present: normal affect, normal mood Skin exam: Present: warm, dry, intact, normal color. Absent: rash Course Vital Signs 0812/24/20 12/24/20 08:26 09:29 09:50 Temperature 98.6 F Pulse Rate 96 79 Respiratory 18 18 18 Rate Blood Pressure 136/86 127/97 O2 Sat by Pulse 99 97 Oximetry 12/24/20 12/24/20 11:10 12:50 Temperature 98.1 F Pulse Rate 76 71 Respiratory 18 20 Rate Blood Pressure 130/93 132/65 O2 Sat by Pulse 130 H 99 Oximetry Medical Decision Making - Medical Decision Making Upon arrival patient is placed into room 10. A thorough history and physical exam was performed. Patient is given a dose of Motrin for pain control. Laboratory studies are conducted. D-dimer 0.87. Sodium 133. Troponin is negative. The patient does have a CT of her chest performed which does not demonstrate a pulmonary embolus. Venous Doppler is performed of the right lower extremity which does demonstrate a superficial thrombus noted within the right greater saphenous vein within the patient's area of concern. I did speak with the golf technician in regards to this region. They state that it is 2 cm from the common femoral junction. I then called and spoke with Dr. Rodriguez. He does check the patient's medical record [facility] which states that the patient had ablation to her varicosity 2 cm from the common femoral junction. He states that he considers this a successful ablation and has no concerns at this time. The patient is to take scheduled Motrin for pain control place warm compresses to the site. She is to follow-up with Dr. Ignacio at her normal scheduled appointment. Return to the emergency room for any new or worsening symptoms. Patient agreed to this and she was discharged home in stable condition - Lab Data Result diagrams: 12/24/20 10:03 12/24/20 10:03 Lab Results 12/24/20 12/24/20 12/24/20 Range/Units 10:03 10:03 10:03 WBC 10.9 H (3.8-10.6) k/uL RBC 4.92 (3.80-5.40) m/uL Hgb 13.3 (11.4-16.0) gm/dL Hct 40.9 (34.0-46.0) % MCV 83.2 (80.0-100.0) fL MCH 27.1 (25.0-35.0) pg MCHC 32.6 (31.0-37.0) g/dL RDW 15.4 (11.5-15.5) % Plt Count 318 (150-450) k/uL MPV 7.8 Neutrophils % 76 % Lymphocytes % 16 % Monocytes % 6 % Eosinophils % 1 % Basophils % 0 % Neutrophils # 8.2 H (1.3-7.7) k/uL Lymphocytes # 1.8 (1.0-4.8) k/uL Monocytes # 0.6 (0-1.0) k/uL Eosinophils # 0.1 (0-0.7) k/uL Basophils # 0.0 (0-0.2) k/uL Hypochromasia Slight PT 10.7 (9.0-12.0) sec INR 1.0 (<1.2) APTT 24.4 (22.0-30.0) sec D-Dimer 0.87 H (<0.60) mg/L FEU Sodium 133 L (137-145) mmol/L Potassium 3.8 (3.5-5.1) mmol/L Chloride 100 (98-107) mmol/L Carbon Dioxide 25 (22-30) mmol/L Anion Gap 8 mmol/L BUN 17 (7-17) mg/dL Creatinine 0.74 (0.52-1.04) mg/dL Est GFR (CKD-EPI)AfAm >90 (>60 ml/min/1.73 sqM) Est GFR (CKD-EPI)NonAf >90 (>60 ml/min/1.73 sqM) Glucose 112 H (74-99) mg/dL Plasma Lactic Acid [place] (0.7-2.0) mmol/L Calcium 9.6 (8.4-10.2) mg/dL Total Bilirubin 1.1 (0.2-1.3) mg/dL AST 18 (14-36) U/L ALT 8 (4-34) U/L Alkaline Phosphatase 100 (38-126) U/L Troponin I (0.000-0.034) ng/mL NT-Pro-B Natriuret Pep pg/mL Total Protein 7.4 (6.3-8.2) g/dL Albumin 3.8 (3.5-5.0) g/dL 08/19/21 08/19/21 08/19/21 Range/Units 10:03 10:03 10:03 WBC (3.8-10.6) k/uL RBC (3.80-5.40) m/uL Hgb (11.4-16.0) gm/dL Hct (34.0-46.0) % MCV (80.0-100.0) fL MCH (25.0-35.0) pg MCHC (31.0-37.0) g/dL RDW (11.5-15.5) % Plt Count (150-450) k/uL MPV Neutrophils % % Lymphocytes % % Monocytes % % Eosinophils % % Basophils % % Neutrophils # (1.3-7.7) k/uL Lymphocytes # (1.0-4.8) k/uL Monocytes # (0-1.0) k/uL Eosinophils # (0-0.7) k/uL Basophils # (0-0.2) k/uL Hypochromasia PT (9.0-12.0) sec INR (<1.2) APTT (22.0-30.0) sec D-Dimer (<0.60) mg/L FEU Sodium (137-145) mmol/L Potassium (3.5-5.1) mmol/L Chloride (98-107) mmol/L Carbon Dioxide (22-30) mmol/L Anion Gap mmol/L BUN (7-17) mg/dL Creatinine (0.52-1.04) mg/dL Est GFR (CKD-EPI)AfAm (>60 ml/min/1.73 sqM) Est GFR (CKD-EPI)NonAf (>60 ml/min/1.73 sqM) Glucose (74-99) mg/dL Plasma Lactic Acid [place] 1.0 (0.7-2.0) mmol/L Calcium (8.4-10.2) mg/dL Total Bilirubin (0.2-1.3) mg/dL AST (14-36) U/L ALT (4-34) U/L Alkaline Phosphatase (38-126) U/L Troponin I <0.012 (0.000-0.034) ng/mL NT-Pro-B Natriuret Pep 53 pg/mL Total Protein (6.3-8.2) g/dL Albumin (3.5-5.0) g/dL - EKG Data EKG Comments: EKG demonstrates a sinus rhythm with a ventricular rate of 84.. 180. QRS 100. QTC of 472. Incomplete right bundle branch block. ST depression in V2 through V6. No ST segment elevation Disposition Clinical Impression: Shortness of breath, S/P sclerotherapy of varicose veins Disposition: HOME SELF-CARE Condition: Stable Instructions (If sedation given, give patient instructions): Shortness of Breath (ED) Additional Instructions: Take 600 mg of Motrin every 6-[address] warm compresses to the site. Return to the emergency room for any new or worsening symptoms Is patient prescribed a controlled substance at d/c from ED?: No Referrals: None,Stated [Primary Care Provider] - 1-2 days Julisa Ignacio DO [STAFF PHYSICIAN] - 1-2 days Time of Disposition: 12:43
[2020-12-24 13:19] VITALS: BP 132/65; PULSE 71; RESP 20; TEMP 98.1
== END 2020-12-24 12:50 | disposition home or self-care (01) ==
LOC: EC 08:24
DX: R06.02 Shortness of breath (principal); M79.89 Other specified soft tissue disorders; I10 Essential (primary) hypertension; E03.9 Hypothyroidism, unspecified; Z79.890 Hormone replacement therapy; Z98.890 Other specified postprocedural states; Z88.1 Allergy status to other antibiotic agents
CPT/HCPCS: 36415; 93005; 85379; 83880; 80053; 83605; 84484; 85025; 85610; 85730; 93971; 71275; 99285; Q9967

== ENCOUNTER 2020-12-28 10:46 | Emergency (ER) | payer MEDICAID ==
[2020-12-28 11:28] VITALS: RESP 18; TEMP 98.5
--- NOTE | 2020-12-28 12:13 | ED ---
General Adult HPI - General Chief complaint: Shortness of Breath Stated complaint: SOB Time Seen by Provider: 12/28/20 12:10 Source: patient Mode of arrival: ambulatory Limitations: no limitations - History of Present Illness Initial comments: Patient presents to the ED with her friend for evaluation. Patient was recently diagnosed with a right leg superficial vein thrombus status post varicose vein ablation (please see Dr. Parish's ED physician's note from 12/24/20). Patient states that her right upper leg pain/"bump" has been improving, but she states that she has developed worsening dyspnea. Patient states that she has had dyspnea for the past week or so. Patient denies fever or chills, headache, focal neuro deficit, chest pain or pressure, cough or cold symptoms, palpitations, dizziness, nausea/vomiting/diaphoresis, abdominal pain, diarrhea, dysuria or urinary symptoms, bloody or melanotic stool, decreased urine output, calf swelling or pain, or any other symptoms or complaints. - Related Data Home Medications Medication Instructions Recorded Confirmed Cetirizine HCl [Zyrtec] 10 mg PO DAILY 08/07/18 12/28/20 Levothyroxine Sodium [Synthroid] 200 mcg PO DAILY 08/07/18 12/28/20 amLODIPine [Norvasc] 5 mg PO DAILY 10/18/19 12/28/20 Cholecalciferol [Vitamin D3 (25 5,000 unit PO DAILY 10/23/19 12/28/20 Mcg = 1000 Iu)] Losartan/Hydrochlorothiazide 1 tab PO DAILY 10/23/19 12/28/20 [Losartan-Hctz 100-25 mg Tab] Ibuprofen [Motrin Ib] 600 mg PO Q8H PRN 12/28/20 12/28/20 Allergies Allergy/AdvReac Type Severity Reaction Status Date / Time metronidazole [From Flagyl] Allergy Nausea & Verified 12/28/20 13:28 Vomiting moxifloxacin [From Avelox] Allergy Diarrhea Verified 12/28/20 13:28 TYRESE Inhibitors AdvReac Cough Verified 12/28/20 13:28 doxycycline AdvReac Nausea & Verified 12/28/20 13:28 Vomiting Review of Systems ROS Statement: Those systems with pertinent positive or pertinent negative responses have been documented in the HPI. ROS Other: All systems not noted in ROS Statement are negative. Past Medical History Past Medical History: Hypertension, Thyroid Disorder Additional Past Medical History / Comment(s): hypothyroid History of Any Multi-Drug Resistant Organisms: None Reported Past Surgical History: No Surgical Hx Reported Additional Past Surgical History / Comment(s): radioactive iodine, varicose vein surgery Past Anesthesia/Blood Transfusion Reactions: No Reported Reaction Past Psychological History: No Psychological Hx Reported Smoking Status: Never smoker Past Alcohol Use History: None Reported Past Drug Use History: None Reported - Past Family History Father Family Medical History: Coronary Artery Disease (CAD), Diabetes Mellitus, Hypertension, Renal Disease Mother Family Medical History: Congestive Heart Failure (CHF), Coronary Artery Disease (CAD), Diabetes Mellitus, Hypertension, Sleep Apnea/CPAP/BIPAP, Thyroid Disorder Brother(s) Family Medical History: Coronary Artery Disease (CAD), Hypertension General Exam Limitations: no limitations General appearance: alert, in no apparent distress Head exam: Present: atraumatic, normocephalic Eye exam: Present: normal appearance, EOMI ENT exam: Present: mucous membranes moist Neck exam: Present: other (Trachea is in midline) Respiratory exam: Present: normal lung sounds bilaterally. Absent: respiratory distress, wheezes, rales, rhonchi, stridor Cardiovascular Exam: Present: regular rate, normal rhythm, normal heart sounds, other (Normal radial pulses bilaterally) GI/Abdominal exam: Present: soft. Absent: tenderness Extremities exam: Present: full ROM, other (Mild right medial thigh tenderness; negative Homans sign bilaterally). Absent: pedal edema, calf tenderness Neurological exam: Present: alert, oriented X3. Absent: motor sensory deficit Psychiatric exam: Present: anxious Skin exam: Present: warm, dry, intact, normal color Course Vital Signs 12/28/20 12/28/20 12/28/20 11:26 12:46 13:00 Temperature 98.5 F Pulse Rate 83 80 78 Respiratory 18 Rate Blood Pressure 133/90 O2 Sat by Pulse 99 99 Oximetry 12/28/20 13:30 Temperature Pulse Rate 75 Respiratory 18 Rate Blood Pressure 145/92 O2 Sat by Pulse 98 Oximetry - Reevaluation(s) Reevaluation #1: 12/28/20 14:19 Patient denies development of any new symptoms while in the ED. Patient remains alert and breathing comfortably with a normal room air oxygen saturation. Patient and friend are aware the patient's test results, and patient feels comfortable going home at this time. Patient was counseled about dyspnea and superficial venous thrombosis of the lower extremity. Patient was clearly explained return and follow-up instructions, and she was instructed to have a low threshold for return to the emergency department should her symptoms worsen. Patient was also instructed to follow up with Dr. Ignacio (vascular surgery) on Monday as scheduled, as well as follow up closely with her PCP. Patient feels comfortable with this plan. EKG Findings - EKG Comments: EKG Findings:: Normal sinus rhythm, ventricular rate of 77 bpm, no ectopy, normal OK and QRS intervals, slightly prolonged QTc interval of 488 ms, normal axis, nonspecific ST abnormality, no significant change from 12/24/2020 EKG Medical Decision Making - Medical Decision Making Patient's right lower extremity venous duplex ultrasound is negative for DVT. Patient's CT angiography chest is negative for PE. Patient's BNP and troponin are within normal limits. Patient has a scheduled follow-up with her vascular surgeon (Dr. Ignacio) this Monday (in 2 days). Patient is breathing comfortably with a normal room air oxygen saturation in the ED. I do not suspect an emergent medical condition at this time. Will discharge patient home at this time. - Lab Data Result diagrams: 12/28/20 12:30 12/28/20 12:30 Lab Results 12/28/20 12/28/20 12/28/20 Range/Units 12:30 12:30 12:30 WBC 12.6 H (3.8-10.6) k/uL RBC 4.99 (3.80-5.40) m/uL Hgb 13.5 (11.4-16.0) gm/dL Hct 41.1 (34.0-46.0) % MCV 82.3 (80.0-100.0) fL MCH 27.0 (25.0-35.0) pg MCHC 32.8 (31.0-37.0) g/dL RDW 15.2 (11.5-15.5) % Plt Count 439 (150-450) k/uL MPV 7.4 Neutrophils % 77 % Lymphocytes % 17 % Monocytes % 4 % Eosinophils % 1 % Basophils % 1 % Neutrophils # 9.7 H (1.3-7.7) k/uL Lymphocytes # 2.1 (1.0-4.8) k/uL Monocytes # 0.5 (0-1.0) k/uL Eosinophils # 0.1 (0-0.7) k/uL Basophils # 0.1 (0-0.2) k/uL PT 10.6 (9.0-12.0) sec INR 1.0 (<1.2) APTT 23.7 (22.0-30.0) sec Sodium 134 L (137-145) mmol/L Potassium 3.4 L (3.5-5.1) mmol/L Chloride 102 (98-107) mmol/L Carbon Dioxide 21 L (22-30) mmol/L Anion Gap 11 mmol/L BUN 20 H (7-17) mg/dL Creatinine 0.69 (0.52-1.04) mg/dL Est GFR (CKD-EPI)AfAm >90 (>60 ml/min/1.73 sqM) Est GFR (CKD-EPI)NonAf >90 (>60 ml/min/1.73 sqM) Glucose 102 H (74-99) mg/dL Calcium 10.0 (8.4-10.2) mg/dL Total Bilirubin 1.0 (0.2-1.3) mg/dL AST 19 (14-36) U/L ALT 11 (4-34) U/L Alkaline Phosphatase 114 (38-126) U/L Troponin I (0.000-0.034) ng/mL NT-Pro-B Natriuret Pep pg/mL Total Protein 7.6 (6.3-8.2) g/dL Albumin 4.1 (3.5-5.0) g/dL 12/28/20 12/28/20 Range/Units 12:30 12:30 WBC (3.8-10.6) k/uL RBC (3.80-5.40) m/uL Hgb (11.4-16.0) gm/dL Hct (34.0-46.0) % MCV (80.0-100.0) fL MCH (25.0-35.0) pg MCHC (31.0-37.0) g/dL RDW (11.5-15.5) % Plt Count (150-450) k/uL MPV Neutrophils % % Lymphocytes % % Monocytes % % Eosinophils % % Basophils % % Neutrophils # (1.3-7.7) k/uL Lymphocytes # (1.0-4.8) k/uL Monocytes # (0-1.0) k/uL Eosinophils # (0-0.7) k/uL Basophils # (0-0.2) k/uL PT (9.0-12.0) sec INR (<1.2) APTT (22.0-30.0) sec Sodium (137-145) mmol/L Potassium (3.5-5.1) mmol/L Chloride (98-107) mmol/L Carbon Dioxide (22-30) mmol/L Anion Gap mmol/L BUN (7-17) mg/dL Creatinine (0.52-1.04) mg/dL Est GFR (CKD-EPI)AfAm (>60 ml/min/1.73 sqM) Est GFR (CKD-EPI)NonAf (>60 ml/min/1.73 sqM) Glucose (74-99) mg/dL Calcium (8.4-10.2) mg/dL Total Bilirubin (0.2-1.3) mg/dL AST (14-36) U/L ALT (4-34) U/L Alkaline Phosphatase (38-126) U/L Troponin I <0.012 (0.000-0.034) ng/mL NT-Pro-B Natriuret Pep 99 pg/mL Total Protein (6.3-8.2) g/dL Albumin (3.5-5.0) g/dL - Radiology Data CT angiography chest with IV contrast: No evidence of pulmonary embolism. Right lower extremity venous duplex ultrasound: No evidence of DVT. Acute SVT of the greater saphenous vein from the groin to the midthigh. Disposition Clinical Impression: Dyspnea, Acute superficial venous thrombosis of right lower extremity Disposition: HOME SELF-CARE Condition: Stable Instructions (If sedation given, give patient instructions): Superficial Thrombophlebitis (ED), Dyspnea (ED) Additional Instructions: Return to the ER immediately if you develop increased shortness of breath, increased right leg swelling or pain, a fever, chest pain, feeling dizzy or faint, or new or worsening symptoms. Follow up with Dr. Ignacio on Monday as scheduled. Follow up closely with your primary care provider as well. Is patient prescribed a controlled substance at d/c from ED?: No Referrals: Luz Elena Lu MD [REFERRING] - 1-2 days Julisa Ignacio DO [STAFF PHYSICIAN] - 1-2 days Time of Disposition: 14:22
[2020-12-28] MEDS ORDERED: SODIUM CHLORIDE 0.9% 500 ML 500 ML IV STA (12:21)
[2020-12-28 12:57] LABS: Basophils # (A) 0.1 k/uL (0-0.2); Basophils % (A) 1 %; Eosinophils # (A) 0.1 k/uL (0-0.7); Eosinophils % (A) 1 %; HCT 41.1 % (34.0-46.0); HGB 13.5 gm/dL (11.4-16.0); Lymphocytes # (A) 2.1 k/uL (1.0-4.8); Lymphocytes % (A) 17 %; MCHC 32.8 g/dL (31.0-37.0); MCV 82.3 fL (80.0-100.0); Mean Platelet Volume 7.4; Monocytes # (A) 0.5 k/uL (0-1.0); Monocytes % (A) 4 %; Neutrophils # (A) 9.7 k/uL (1.3-7.7); Neutrophils % (A) 77 %; Platelet Count 439 k/uL (150-450); RBC 4.99 m/uL (3.80-5.40); RDW 15.2 % (11.5-15.5); WBC 12.6 k/uL (3.8-10.6)
[2020-12-28 13:09] LABS: ALT 11 U/L (4-34); AST 19 U/L (14-36); African American GFR (CKD) >90 (>60 ml/min/1.73 sqM); Albumin 4.1 g/dL (3.5-5.0); Alkaline Phosphatase 114 U/L (38-126); Anion Gap 11 mmol/L; Blood Urea Nitrogen 20 mg/dL (7-17); Carbon Dioxide 21 mmol/L (22-30); Chloride 102 mmol/L (98-107); Glucose 102 mg/dL (74-99); Non-African American GFR(CKD) >90 (>60 ml/min/1.73 sqM); Potassium 3.4 mmol/L (3.5-5.1); Sodium 134 mmol/L (137-145); Total Protein 7.6 g/dL (6.3-8.2)
[2020-12-28 13:25] LABS: Partial Thromboplastin Time 23.7 sec (22.0-30.0); Prothrombin Time 10.6 sec (9.0-12.0)
--- NOTE | 2020-12-28 13:32 | CT ---
EXAMINATION TYPE: CT chest angio for PE DATE OF EXAM: 12/28/2020 COMPARISON: 12/24/2020 HISTORY: SOB, Recently diagnosed superficial leg vein clot CT DLP: 807 mGycm CONTRAST: CT chest with contrast and 3D reconstruction with MIP imaging is performed without and with IV Contra st, patient injected with 100 ml mL of Isovue 370. Contrast-enhanced CT of the chest was performed through the course of the pulmonary arteries with zoya g and mediastinal window settings submitted. 3D reconstruction with MIP imaging was also performed. PULMONARY ARTERIES: The pulmonary arteries and their major tributaries are patent. I do not see kortney dence for sizable filling defect to suggest pulmonary embolic process. LUNGS: The lungs are clear and free of infiltrate. No evidence for atelectasis. No pulmonary nodule or mass is detected. No pleural effusion. MEDIASTINUM: Thoracic aorta is of normal caliber,however, evaluation is limited given timing of the contrast bolus. If there is concern for thoracic aortic pathology consider PEG. Correlate clinicall y . The heart is not enlarged. No evidence for mediastinal mass. No mediastinal lymph nodes greater than 1cm. HILAR STRUCTURES: No evidence for mass. No hilar lymph nodes greater than 1 cm. UPPER ABDOMEN: No significant abnormality is seen. IMPRESSION: 1. No evidence for Pulmonary embolism at this time.
--- NOTE | 2020-12-28 14:09 | US ---
EXAMINATION TYPE: US venous doppler duplex LE RT DATE OF EXAM: 12/28/2020 1:54 PM COMPARISON: US 12/24/2020 CLINICAL HISTORY: 50-year-old female right leg pain, known superficial vein clot. SIDE PERFORMED: Right TECHNIQUE: The lower extremity deep venous system is examined utilizing real time linear array sonog percy with graded compression, doppler sonography and color-flow sonography. FINDINGS: VESSELS IMAGED: Common Femoral Vein Deep Femoral Vein Greater Saphenous Vein * Femoral Vein Popliteal Vein Small Saphenous Vein * Proximal Calf Veins (* superficial vessels) Right Leg: Negative for DVT Brick Unloader Tender notes: Positive for SVT in the GSV from groin to mid thigh. IMPRESSION: 1. No evidence for DVT within the right lower extremity imaged from the groin into the upper calf. 2. However, the exam is positive for acute SVT of the greater saphenous vein from the groin to the mi d thigh.
[2020-12-28 18:36] VITALS: BP 137/93; PULSE 67
--- NOTE | 2020-12-29 07:14 | ECHOF ---
Referral Reason: MEASUREMENTS -------- HEIGHT: 172.7 cm WEIGHT: 145.1 kg BP: 145/92 RVIDd: 3.4 cm (< 3.3) IVSd: 1.5 cm (0.6 - 1.1) LVIDd: 3.8 cm (3.9 - 5.3) LVPWd: 1.5 cm (0.6 - 1.1) IVSs: 2.0 cm LVIDs: 2.3 cm LVPWs: 1.4 cm LAESV Index (A-L): 25.79 ml/m Ao Diam: 4.1 cm (2.0 - 3.7) AV Cusp: 2.1 cm (1.5 - 2.6) MV E Sergio: 0.53 m/s MV DecT: 170 ms MV A Sergio: 0.56 m/s MV E/A Ratio: 0.95 RAP: 5.00 mmHg RVSP: 16.14 mmHg FINDINGS -------- Sinus rhythm. This was a technically difficult study with suboptimal views. The left ventricular size is normal. There is moderate concentric left ventricular hypertrophy. O verall left ventricular systolic function is normal with, an EF between 55 - 60 %. The right ventricle is mildly enlarged. Normal LA size by volume 22+/-6 ml/m2. The right atrium was not well visualized. 5.0mg of Lumason was utilized for enhancement of images Interatrial and interventricular septum intact. The aortic valve was not well visualized. There is no evidence of aortic regurgitation. There is no evidence of aortic stenosis. The mitral valve was not well visualized. No mitral regurgitation. The tricuspid valve was not well visualized. Mild tricuspid regurgitation present. There is no ev idence of pulmonary hypertension. The right ventricular systolic pressure, as measured by Doppler, is 16.14mmHg. The pulmonic valve was not well visualized. There is no pulmonic regurgitation present. The aortic root size is normal. IVC Not well visulized. There is no pericardial effusion. CONCLUSIONS -------- 1. The left ventricular size is normal. 2. There is moderate concentric left ventricular hypertrophy. 3. Overall left ventricular systolic function is normal with, an EF between 55 - 60 %. 4. The right ventricle is mildly enlarged. PIT CLERK: Isabella Shields [facility]
== END 2020-12-28 18:54 | disposition home or self-care (01) ==
LOC: EC 10:46
DX: R06.00 Dyspnea, unspecified (principal); I82.811 Embolism and thrombosis of superficial veins of right lower extremity; I10 Essential (primary) hypertension; E07.9 Disorder of thyroid, unspecified; Z88.1 Allergy status to other antibiotic agents
CPT/HCPCS: 99285; 96360; 96361; 36415; 93005; 93306; 83880; 80053; 84484; 85025; 85610; 85730; 93971; 71275; Q9950; Q9967

== ENCOUNTER → 2021-01-21 | Outpatient (CLI) | payer MEDICAID ==
[~2021-01-21] MED LIST changes: -LACTATED RINGERS 1,000 ML IV ONE; +REGADENOSON 0.4 MG/5 ML SYRINGE IV PRN
--- NOTE | 2021-01-21 12:47 | NM ---
"EXAMINATION TYPE: NM stress lexiscan cardiolite DATE OF EXAM: 01/21/2021 COMPARISON: NONE HISTORY: R06.00 SOB, hypertension and palpitations, positive family history TECHNIQUE: After the intravenous administration of 10.1 mCi Tc 99m Sestamibi - Cardiolite resting SP ECT images acquired 60 minutes post injection. The patient received 0.4mg Lexiscan, 25.8 mCi Tc 99m Sestamibi - Stress images obtained [address] injection FINDINGS: Review of stress and rest SPECT images demonstrates decreased radio pharmaceutical along the anterola teral left ventricle on stress as compared to rest images. Gated analysis shows normal wall motion w ith an estimated left ventricular ejection fraction of 54 %. IMPRESSION: Pharmacologically induced left ventricular myocardial ischemia A Yellow level critical message alert has been initiated for Nia Jefferson MD via the [employer] 36 0 | Critical Results System on 01/21/2021 12:44 PM. This message alert has been sent to Nia Jefferson MD via the preferences provided by the clinician for the receipt of Radiology Critical Findings. [facility] [id number]."
--- NOTE | 2021-01-21 13:48 | EST ---
EXERCISE STRESS DATE OF SERVICE: January 21, 2021 AGE: 50 SEX: Fe HT: 5'8" WT: 325 lbs PROTOCOL: Lexiscan STAGE: NA DURATION OF EXERCISE: 5 minutes HEART RATE REST: 63 BLOOD PRESSURE REST: 120/79 MAXIMUM HEART RATE ACHIEVED: 96 MAXIMUM BLOOD PRESSURE: 124/73 85% MPHR: 146 100% MPHR: 172 METS: NA INDICATIONS: Shortness of breath STRESS DATA: Heart rate 63, pressure 120/79 mmHg. Baseline EKG showed sinus mechanism. 0.4 mg of Lexiscan given over 15 seconds per protocol. Max heart rate was 60, 96 beats per minute. Maximum pressure was 124/73 mmHg. Clinically, the patient did not have any symptoms and the EKG did not show any significant ST or T-wave abnormalities concerning for ischemia. CONCLUSION: 1. Nondiagnostic electrocardiogram stress testing in response to Lexiscan. 2. Please follow up on the Cardiolite portion on separate report from Radiology. MMODL / IJN: [id number] /
== END | disposition home or self-care (01) ==
LOC: RADNMMAIN 07:51
PROVIDERS: ATTEND Internal Medicine Interventional Cardiology
DX: I25.9 Chronic ischemic heart disease, unspecified (principal); I10 Essential (primary) hypertension
CPT/HCPCS: 93017; 78452; A9500; J2785

== ENCOUNTER 2021-01-25 07:27 | Day surgery (SDC) | payer MEDICAID ==
[2021-01-22 12:05] VITALS: BMI 49.2
[~2021-01-25 07:27] MED LIST changes: +ALPRAZolam 0.25 MG TAB PO PRN; +ALPRAZolam 0.5 MG TAB PO PRN; +ASPIRIN 325 MG TAB PO ONE; +HEPARIN SODIUM,PORCINE 10,000 UNIT in SODIUM CHLORIDE 0.9% 1,000 ML IRRIGATION PRN; +HEPARIN SODIUM,PORCINE 2,500 UNIT in SODIUM CHLORIDE 0.9% 250 ML IRRIGATION PRN; +NITROGLYCERIN SL TABS 0.4 MG TAB SUBLINGUAL PRN; -REGADENOSON 0.4 MG/5 ML SYRINGE IV PRN; +SODIUM CHLORIDE 0.9% 1,000 ML in EMPTY BAG 1 BAG IV ONE
[2021-01-25 07:54] VITALS: RESP 18; TEMP 98.4
[2021-01-25 07:59] LABS: Basophils # (A) 0.1 k/uL (0-0.2); Basophils % (A) 0 %; Eosinophils # (A) 0.2 k/uL (0-0.7); Eosinophils % (A) 1 %; HCT 41.7 % (34.0-46.0); HGB 13.6 gm/dL (11.4-16.0); Lymphocytes # (A) 2.1 k/uL (1.0-4.8); Lymphocytes % (A) 17 %; MCH 26.2 pg (25.0-35.0); MCHC 32.7 g/dL (31.0-37.0); MCV 80.2 fL (80.0-100.0); Mean Platelet Volume 7.6; Monocytes # (A) 0.6 k/uL (0-1.0); Monocytes % (A) 5 %; Neutrophils # (A) 9.5 k/uL (1.3-7.7); Neutrophils % (A) 76 %; Platelet Count 313 k/uL (150-450); RDW 14.1 % (11.5-15.5); WBC 12.5 k/uL (3.8-10.6)
[2021-01-25 08:12] LABS: African American GFR (CKD) >90 (>60 ml/min/1.73 sqM); Anion Gap 11 mmol/L; Blood Urea Nitrogen 22 mg/dL (7-17); Calcium 9.9 mg/dL (8.4-10.2); Carbon Dioxide 23 mmol/L (22-30); Chloride 102 mmol/L (98-107); Glucose 124 mg/dL (74-99); Non-African American GFR(CKD) >90 (>60 ml/min/1.73 sqM); Potassium 3.7 mmol/L (3.5-5.1); Sodium 136 mmol/L (137-145)
[2021-01-25] MEDS ORDERED: VERAPAMIL 2.5 MG/ML 2 ML AMP ONE (09:05)
[2021-01-25] MEDS ORDERED: LIDOCAINE 1% INJ 10MG/ML (20 ML MDV) ONE (09:05)
[2021-01-25] MEDS ORDERED: HEPARIN SODIUM 1,000 UN/ML (10ML VL) ONE (09:07)
[2021-01-25] MEDS ORDERED: fentaNYL (PF) 50 MCG/ML 2 ML AMP ONE (09:07)
[2021-01-25] MEDS ORDERED: fentaNYL (PF) 50 MCG/ML 2 ML AMP IV ONE (09:23)
[2021-01-25] MEDS: LIDOCAINE 1% INJ 10MG/ML (20 ML MDV) SQ ONE ×2 (09:28→09:53)
[2021-01-25] MEDS ORDERED: MIDAZOLAM 2 MG/2 ML VIAL IV ONE (09:30)
[2021-01-25] MEDS ORDERED: IOPAMIDOL-370 125ML BTL INJ ONE (10:06)
[2021-01-25] MEDS ORDERED: RX INFO: IV CONTRAST WAS GIVEN 1 EACH MISC MISCELLANE PRN (10:20)
[2021-01-25] MEDS ORDERED: SODIUM CHLORIDE 0.9% 1,000 ML IV SCH (10:30)
--- NOTE | 2021-01-25 15:02 | CC ---
CARDIAC CATHETERIZATION REPORT Mrs. Leon is a 50-year-old female with history of hypertension who has been complaining of progressive dyspnea on exertion. She evidence of normal left ventricular systolic function, but she continued to have dyspnea and underwent a myocardial perfusion imaging that revealed anterolateral wall ischemia. In view of that, recommendation was made regarding cardiac catheterization. The procedure as well as the risks and the complications were discussed with the patient who is in full understanding and agreement. PROCEDURE DETAILS: Patient was brought to the farm labor contractor in fasting semi-sedated state after receiving fentanyl and Benadryl, achieving moderate conscious sedated state. Using Xylocaine anesthesia and Seldinger technique, the right radial artery was cannulated but there was inability to advance the wire because of vasospasm. At that time, using Xylocaine anesthesia and Seldinger technique, a 6-Icelandic sheath was introduced in the right femoral artery. Selective right and left coronary angiography performed using 6-Icelandic 4 bend right and left Judkin's catheter. Multiple views of the coronary artery including hemiaxial views obtained. Following that 6-Icelandic tight pigtail catheter was introduced into the left ventricle and a 30-degree EDWARDS view of the left ventricle was obtained. Following that, catheter and sheath were removed. Hemostasis was obtained with deployment of an Angio-Seal. There was no immediate complication. Patient was returned to his room in stable condition. FINDINGS: LEFT MAIN: This is a large-sized vessel, bifurcating into left circumflex, left anterior descending artery, left main coronary artery has no evidence of high-grade stenosis. LEFT ANTERIOR DESCENDING ARTERY: This is a large-sized vessel reaching to the apex with a wraparound apex segment giving rise to 2 diagonal branches. The first one is large in caliber. The left anterior descending artery as well as branches have no evidence of obstructive coronary artery disease. LEFT CIRCUMFLEX: This is a nondominant vessel, giving rise to 2 obtuse marginal branches. The left circumflex as well as branches have no evidence of obstructive coronary artery disease. RIGHT CORONARY ARTERY: This is a large dominant vessel bifurcating distally into PDA and posterolateral segment and branches. The right coronary artery as well as branches have no evidence of obstructive coronary artery disease. LEFT VENTRICULOGRAM: Left ventriculogram was performed in 30-degree EDWARDS view and revealed normal left ventricular size and systolic function, ejection fraction 55-60 percent. There was no significant mitral regurgitation. HEMODYNAMICS: There was no gradient across the aortic valve. The left ventricular end-diastolic pressure was 8-10 mmHg. CONCLUSION: 1. Normal coronary arteries. 2. Normal left ventricular size and systolic function. 3. Normal filling pressures. RECOMMENDATIONS: In view of findings and anatomy, I recommend continued medical therapy with aggressive coronary risk factor modifications that have been initiated. I see no evidence to suggest a primary cardiac etiology to her symptoms. Those findings and recommendations were discussed with the patient and her family who are in full understanding and agreement. DURATION OF SEDATION: 36 minutes. MMODL / IJN: [id number] /
--- NOTE | 2021-01-25 15:05 | LTR ---
DATE OF SERVICE: 01/25/[address] Mckeon: I had the pleasure of performing cardiac catheterization on Mrs. Leon at [facility] on January 25. A full copy of procedure note will be forwarded to you. In brief, she was found to have no evidence of obstructive coronary artery disease with preserved left ventricular size and systolic function. Based on those findings, I recommend continued medical therapy with aggressive coronary risk factor modifications that have been initiated. I do not see any evidence suggesting cardiac etiology to her symptoms. Thank you for allowing me to participate in her care. Please feel free to call for any questions. Sincerely yours, MMODL / IJN: [id number] /
[2021-01-25 15:07] VITALS: BP 111/72; PULSE 72
[2021-01-26] MEDS ORDERED: LOSARTAN-HCTZ 50-12.5 MG 1 EACH TAB PO SCH (09:00)
[2021-01-26] MEDS ORDERED: amLODIPine 5 MG TAB PO SCH (09:00)
== END 2021-01-25 15:05 | disposition home or self-care (01) ==
LOC: CATHCVL 07:27
PROVIDERS: ATTEND Internal Medicine Interventional Cardiology
DX: R06.09 Other forms of dyspnea (principal); I10 Essential (primary) hypertension
CPT/HCPCS: 93458; 80048; 85025; 81025; 87635; C1760; C1894 ×2; C1769; J2250; J2001; J3010; Q9967

== ENCOUNTER → 2021-04-17 | Outpatient (CLI) | payer MEDICAID ==
[2021-04-17 17:17] LABS: Basophils # (A) 0.05 X 10*3/uL (0.00-0.10); Basophils % (A) 0.6 %; Eosinophils # (A) 0.08 X 10*3/uL (0.04-0.35); HCT 40.1 % (37.2-46.3); HGB 12.6 g/dL (12.0-15.0); Lymphocytes # (A) 2.01 X 10*3/uL (0.90-5.00); Lymphocytes % (A) 24.6 %; MCH 25.7 pg (27.0-32.0); MCHC 31.4 g/dL (32.0-37.0); MCV 81.7 fL (80.0-97.0); Mean Platelet Volume 11.3 fL (9.5-12.2); Monocytes # (A) 0.54 X 10*3/uL (0.20-1.00); Monocytes % (A) 6.6 %; Neutrophils # (A) 5.42 X 10*3/uL (1.80-7.70); Neutrophils % (A) 66.5 %; Platelet Count 296 X 10*3/uL (140-440); RBC 4.91 X 10*6/uL (4.10-5.20); RDW 14.9 % (11.5-14.5); WBC 8.16 X 10*3/uL (4.50-10.00)
[2021-04-17 17:25] LABS: Erythrocyte Sedimentation Rate 45 mm/Hr (0-20)
[2021-04-17 18:26] LABS: ALT 7 U/L (8-44); AST 9 U/L (13-35); African American GFR (CKD) 118.7 (60.0-200.0); Albumin 3.9 g/dL (3.8-4.9); Albumin/Globulin Ratio 1.22 (1.60-3.17); Alkaline Phosphatase 96 U/L (41-126); BUN/Creat Ratio 35.14 Ratio (12.00-20.00); Blood Urea Nitrogen 24.6 mg/dL (9.0-27.0); Calcium 9.7 mg/dL (8.7-10.3); Carbon Dioxide 22.5 mmol/L (20.0-27.5); Chloride 102 mmol/L (96-109); Globulin 3.2 g/dL (1.6-3.3); Glucose 93 mg/dL (70-110); Non-African American GFR(CKD) 102.5 (60.0-200.0); Potassium 3.7 mmol/L (3.5-5.5); Sodium 138 mmol/L (135-145); Total Protein 7.1 g/dL (6.2-8.2)
[2021-04-17 18:27] LABS: Chol/HDL Ratio 3.02 Ratio; LDL Cholesterol,Calculated 65.7 mg/dL (0.0-131.0)
[2021-04-17 19:03] LABS: Immunoglobulin E 10.1 IU/mL (0.00-114.00)
== END | disposition home or self-care (01) ==
LOC: LABWHC1 10:09
PROVIDERS: ATTEND Internal Medicine Critical Care Medicine
DX: Z00.00 Encounter for general adult medical examination without abnormal findings (principal); I10 Essential (primary) hypertension; E03.9 Hypothyroidism, unspecified; E55.9 Vitamin D deficiency, unspecified; J30.2 Other seasonal allergic rhinitis; M25.50 Pain in unspecified joint
CPT/HCPCS: 36415; 80053; 80061; 82306; 82785; 84439; 84443; 85025; 85652; 86003; 86140

== ENCOUNTER → 2021-04-28 | Outpatient (CLI) | payer MEDICAID ==
[2021-04-28 19:41] LABS: Creatine Kinase 30 U/L (26-186); Rheumatoid Factor, Qnt 13 IU/mL (0-15)
[2021-04-28 20:01] LABS: Anti-Smith Ab Interp NEGATIVE (NEGATIVE)
== END | disposition home or self-care (01) ==
LOC: LABWHC1 12:18
PROVIDERS: ATTEND Internal Medicine Critical Care Medicine
DX: M25.50 Pain in unspecified joint (principal); M62.81 Muscle weakness (generalized)
CPT/HCPCS: 36415; 82550; 85652; 86038; 86235; 86431

== ENCOUNTER → 2021-06-17 | Outpatient (CLI) | payer MEDICAID ==
--- NOTE | 2021-06-18 11:42 | MM ---
Reason for exam: screening (asymptomatic). Last mammogram was performed 1 year ago. History: Patient is nulliparous. Benign US breast aspiration single RT of the right breast, October 18, 2019. Took hormonal contraceptives for 4 years. Physical Findings: A clinical breast exam by your physician is recommended on an annual basis and results should be correlated with mammographic findings. MG 3D Screening Mammo W/Cad Bilateral CC, MLO, and XCCL view(s) were taken. Prior study comparison: June 14, 2019, bilateral MG 3d screening mammo w/cad. May 22, 2018, bilateral MG 3d screening mammo w/cad. April 07, 2017, bilateral MG screening mammo w CAD. The breast tissue is heterogeneously dense. This may lower the sensitivity of mammography. There is chronic nodularity bilaterally. Global asymmetry left upper outer quadrant is unchanged. No significant changes when compared with prior studies. ASSESSMENT: Benign, BI-RAD 2 RECOMMENDATION: Routine screening mammogram of both breasts in 1 year. Patient should continue monthly self breast exams. A negative report should not preclude additional follow up of suspicious palpable abnormalities.
== END | disposition home or self-care (01) ==
LOC: RADMAMWWP 06:58
PROVIDERS: ATTEND Surgery
DX: Z12.31 Encounter for screening mammogram for malignant neoplasm of breast (principal)
CPT/HCPCS: 77063; 77067

== ENCOUNTER → 2021-06-24 | Outpatient (CLI) | payer MEDICAID ==
[2021-06-24 12:09] VITALS: BP 123/80; PULSE 86; RESP 17; TEMP 98.4
--- NOTE | 2021-06-24 12:18 | P.PN ---
Subjective Progress Note Date: 06/24/21 Principal diagnosis: fibrocystic breast changes fibrocystic breast exam Naomie is a 49-year-old white female who initially presented with a fever to the emergency department in October of 2019. Approximately 2 weeks prior she experienced trauma to her right breast which resulted in an abscess. She was initially treated with oral antibiotics without resolution. She was then seen and an ultrasound was performed . Percutaneous drainage of the abscess, with aspiration of approximately 15 mL of purulent fluid was performed. After discussion with Dr. Ayala she was started on Bactrim in addition to Keflex which she had been taking at home. She improved over the weekend. Approximately 2 days prior to being seen in the ER she was seen in the office and an additional 6 mL of purulent fluid was aspirated. She was noted to have decreased erythema of the breast. She than developed a fever. She was seen in the emergency department and noted to have a fever of 100.3. Her white count was normal at 8.4. She was admitted and started on IV antibiotics, she under went I&D in the operating room on 10-18-19. She had a bilateral mammogram June 2019 which was BIRADS 1. Today Naomie presents for breast exam and mammogram results. She had a bilateral mammogram on 06-18-21, this was Benign Birad 2. She is not complaining of any pain in her breast. She has no lumps masses or nodules for which she is concerned. No nipple drainage or discharge of concern. Family history: Negative for cancer Hormonal history: Menarche: 14 , misscarriage periods regular BCP: none hormones: none Surgical history: 1. Incision and drainage of right breast abscess 2. [place] teeth removed 3. varicose vein surgery right leg 4. cardiac cath for SOB was normal Medical history: Prior history of hyperthyroidism treated with radioactive iodine Hypertension Hypothyroidism at this time ALLERGIES: Avelox Flagyl Doxycycline TYRESE inhibitor's Social history: Smoke: Negative Alcohol: Negative Drugs: Negative - Constitutional Constitutional: Reports as per HPI, Reports fever - EENT Comment: wears glasses Ears: deny: decreased hearing, tinnitus - Breasts Breasts: bilateral: as per HPI - Cardiovascular Comment: HTN - Respiratory Respiratory: Denies cough, - Gastrointestinal Gastrointestinal: Denies abdominal pain, Denies diarrhea, Denies nausea, Denies vomiting - Genitourinary (Female) Genitourinary: Denies dysuria, Denies hematuria - Musculoskeletal Musculoskeletal: Denies myalgias - Integumentary Comment: prior right breast abscess - Neurological Neurological: Denies numbness, Denies weakness - Psychiatric Psychiatric: Denies anxiety, Denies depression - Endocrine Endocrine: Reports as per HPI - Hematologic/Lymphatic Hematologic/Lymphatic: Reports as per HPI - Allergic/Immunologic Allergic/Immunologic: Reports as per HPI Objective - Vital Signs Vital signs: Vital Signs Temp 98.4 F 06/24/21 12:04 Pulse 86 06/24/21 12:04 Resp 17 06/24/21 12:04 BP 123/80 06/24/21 12:04 Pulse Ox 97 06/24/21 12:04 Intake & Output 06/23/21 06/24/21 06/24/21 18:59 06:59 18:59 Weight 143.335 kg - Exam BMI 48 - Constitutional General appearance: Present: cooperative - EENT Eyes: Present: EOMI ENT: Present: hearing grossly normal - Neck Neck: Present: normal ROM - Respiratory Respiratory: bilateral: CTA - Cardiovascular Rhythm: regular Heart sounds: normal: S1, S2 - Gastrointestinal General gastrointestinal: Present: soft - Integumentary Integumentary: Present: normal turgor - Musculoskeletal Musculoskeletal: Present: gait normal - Psychiatric Psychiatric: Present: A&O x's 3, appropriate affect, intact judgment & insight - Additional findings Additional findings: Breast Exam: BRA: 54DD inspection: bilateral grade 3 ptosis palpation: right breast: Multi-positional exam fibrocystic changes no dominant masses or nodules of concern Right axilla: No adenopathy of concern Left breast: Multiple positional exam fibrocystic changes no dominant masses or nodules of concern Left axilla: No adenopathy of concern Assessment and Plan Assessment: Impression: Fibrocystic breast changes Plan: Repeat bilateral mammogram in 1 year with physician exam at that time CC: Dr. Mckeon
== END ==
LOC: WWCWWP 11:35
PROVIDERS: ATTEND Surgery
DX: N60.11 Diffuse cystic mastopathy of right breast (principal); N60.12 Diffuse cystic mastopathy of left breast; E03.9 Hypothyroidism, unspecified; I10 Essential (primary) hypertension; Z88.1 Allergy status to other antibiotic agents; Z88.8 Allergy status to other drugs, medicaments and biological substances

== ENCOUNTER → 2022-04-16 | Outpatient (CLI) | payer MEDICAID ==
[2022-04-16 16:16] LABS: Basophils # (A) 0.08 X 10*3/uL (0.00-0.10); Basophils % (A) 0.9 %; Eosinophils # (A) 0.07 X 10*3/uL (0.04-0.35); Eosinophils % (A) 0.8 %; HCT 41.3 % (37.2-46.3); Immature Grans, Automated 0.6 %; Lymphocytes # (A) 2.09 X 10*3/uL (0.90-5.00); Lymphocytes % (A) 23.3 %; MCH 26.2 pg (27.0-32.0); MCHC 31.5 g/dL (32.0-37.0); MCV 83.1 fL (80.0-97.0); Mean Platelet Volume 10.7 fL (9.5-12.2); Monocytes # (A) 0.66 X 10*3/uL (0.20-1.00); Monocytes % (A) 7.4 %; NRBC Per 100 WBC 0 /100 WBCS (0.0-0.0); Neutrophils # (A) 6.01 X 10*3/uL (1.80-7.70); Platelet Count 289 X 10*3/uL (140-440); RBC 4.97 X 10*6/uL (4.10-5.20); RDW 14.5 % (11.5-14.5); WBC 8.96 X 10*3/uL (4.50-10.00)
[2022-04-16 16:40] LABS: ALT 10 U/L (8-44); AST 11 U/L (13-35); African American GFR (CKD) 92.2 (60.0-200.0); Albumin 3.8 g/dL (3.8-4.9); Albumin/Globulin Ratio 1.22 (1.60-3.17); Alkaline Phosphatase 102 U/L (41-126); BUN/Creat Ratio 26.34 Ratio (12.00-20.00); Blood Urea Nitrogen 22.6 mg/dL (9.0-27.0); Calcium 9.8 mg/dL (8.7-10.3); Carbon Dioxide 26.3 mmol/L (20.0-27.5); Chloride 102 mmol/L (96-109); Chol/HDL Ratio 3.98 Ratio; Globulin 3.1 g/dL (1.6-3.3); Glucose 108 mg/dL (70-110); LDL Cholesterol,Calculated 81.5 mg/dL (0.0-131.0); Non-African American GFR(CKD) 79.6 (60.0-200.0); Potassium 3.7 mmol/L (3.5-5.5); Sodium 139 mmol/L (135-145); Total Protein 6.9 g/dL (6.2-8.2)
== END | disposition home or self-care (01) ==
LOC: LABWHC1 09:06
PROVIDERS: ATTEND Internal Medicine Critical Care Medicine
DX: Z00.00 Encounter for general adult medical examination without abnormal findings (principal); I10 Essential (primary) hypertension; E03.9 Hypothyroidism, unspecified; E55.9 Vitamin D deficiency, unspecified
CPT/HCPCS: 36415; 80053; 80061; 82306; 83036; 84439; 84443; 85025

== ENCOUNTER → 2022-09-15 | Outpatient (CLI) | payer MEDICAID ==
[2022-09-15 20:14] LABS: T4, Free (Free Thyroxine) 1.47 ng/dL (0.800-1.800)
== END | disposition home or self-care (01) ==
LOC: LABWHC1 11:55
PROVIDERS: ATTEND Internal Medicine Critical Care Medicine
DX: E03.9 Hypothyroidism, unspecified (principal)
CPT/HCPCS: 36415; 84439; 84443

== ENCOUNTER → 2023-03-09 | Outpatient (CLI) | payer MEDICAID ==
--- NOTE | 2023-03-09 10:42 | US ---
EXAMINATION TYPE: US thyroid st tissue head/neck DATE OF EXAM: 03/09/2023 COMPARISON: NONE CLINICAL INDICATION: Female, 52 years old with history of E03.9HYPOTHYROIDISM, UNSPECIFIED; Pt states known hypothyroid, pt on thyroid meds X 20 yrs GLAND SIZE: Right Lobe: 2.9 x 1.1 x 0.6 cm Overall Parenchyma: heterogenous Left Lobe: 3.2 x 0.8 x 0.8 cm Overall Parenchyma: heterogenous Isthmus Thickness: 0.3 cm NODULES RIGHT: # of nodules measured on right: 0 LEFT: # of nodules measured on left: 0 ISTHMUS: # of nodules measured in the isthmus: 0 Bilateral neck scanned, Prominent lymph nodes visualized on both sides. Central fatty hilum demonstra francisco. RT)= 1.5 x 0.7 x 0.8 cm with a 0.6 cm cortical thickness LT)= 1.7 x 0.7 x 0.7 cm with a 0.5 cm cortical thickness Bilateral thyroid small in size without evidence of nodules. IMPRESSION: 1. Small thyroid without discrete nodule. 2. Prominent bilateral neck lymph nodes, likely reactive.
== END | disposition home or self-care (01) ==
LOC: RADUSWWP 10:11
PROVIDERS: ATTEND Internal Medicine Critical Care Medicine
DX: E03.9 Hypothyroidism, unspecified (principal)
CPT/HCPCS: 76536

== ENCOUNTER 2023-04-11 15:06 | Inpatient (IN) | payer MEDICAID ==
[2023-04-11] MEDS ORDERED: SODIUM CHLORIDE 0.9% 500 ML 500 ML IV STA ×2 (15:45→18:12)
[2023-04-11] MEDS ORDERED: ONDANSETRON 4 MG/2 ML VIAL IVP STA (15:45)
[2023-04-11] MEDS ORDERED: HYDROmorphone 1 MG/ML 1 ML SYRINGE IVP STA ×2 (15:45→18:47)
--- NOTE | 2023-04-11 15:46 | ED ---
Abdominal Pain HPI - General Chief Complaint: Abdominal Pain Stated Complaint: abd pain Time Seen by Provider: 04/11/23 15:30 Source: patient Mode of arrival: ambulatory Limitations: no limitations - History of Present Illness Initial Comments: This patient's 52-year-old woman who presents to have evaluation for right sided abdominal pain that started approximately 3 hours ago after she had eaten. The patient also had onset of nausea and vomiting. She had approximately 8 episodes of vomiting, no hematemesis, no coffee-ground material. MD Complaint: abdominal pain Onset/Timin -: hour(s) Location: RUQ Radiation: none Severity: severe Quality: aching Consistency: constant Improves With: nothing Worsens With: other (Pressure) Associated Symptoms: nausea, vomiting - Related Data Home Medications Medication Instructions Recorded Confirmed Cetirizine HCl [Zyrtec] 10 mg PO DAILY 08/07/18 04/11/23 amLODIPine [Norvasc] 5 mg PO DAILY 10/18/19 04/11/23 Losartan/Hydrochlorothiazide 1 tab PO DAILY 10/23/19 04/11/23 [Losartan-Hctz 100-25 mg Tab] Levothyroxine Sodium [Synthroid] 150 mcg PO DAILY 06/24/21 04/11/23 Cholecalciferol [Vitamin D3 (25 50 mcg PO DAILY 04/11/23 04/11/23 Mcg = 1000 Iu)] Cyanocobalamin (Vitamin B-12) 1,000 mcg PO DAILY 04/11/23 04/11/23 [Vitamin B-12] Allergies Allergy/AdvReac Type Severity Reaction Status Date / Time metronidazole [From Flagyl] Allergy Nausea & Verified 04/11/23 19:10 Vomiting moxifloxacin [From Avelox] Allergy Diarrhea Verified 04/11/23 19:10 TYRESE Inhibitors AdvReac Cough Verified 04/11/23 19:10 doxycycline AdvReac Nausea & Verified 04/11/23 19:10 Vomiting Review of Systems ROS Statement: Those systems with pertinent positive or pertinent negative responses have been documented in the HPI. ROS Other: All systems not noted in ROS Statement are negative. Constitutional: Denies: fever, chills Respiratory: Denies: cough, dyspnea Cardiovascular: Denies: chest pain, palpitations Gastrointestinal: Reports: abdominal pain, nausea, vomiting. Denies: diarrhea, constipation, melena, hematochezia Genitourinary: Denies: dysuria, frequency, hematuria Musculoskeletal: Denies: back pain Skin: Denies: rash Neurological: Denies: headache, weakness Past Medical History Past Medical History: Hypertension, Thyroid Disorder Additional Past Medical History / Comment(s): RECENT SUPERFICIAL VENOUS THROMBOSIS RLE-12/2020-ABLATION OF VARICOSE VEINS History of Any Multi-Drug Resistant Organisms: None Reported Past Surgical History: Breast Surgery, Heart Catheterization Additional Past Surgical History / Comment(s): radioactive iodine FOR THYROID, varicose vein surgery, I & D RIGHT BREAST FOR ABCESS, WISDOM TEETH REMOVED UNDER ANESTHESIA, CLEAR CARDIAC CATH 01/2021 Past Anesthesia/Blood Transfusion Reactions: No Reported Reaction Past Psychological History: No Psychological Hx Reported Smoking Status: Never smoker Past Alcohol Use History: None Reported Past Drug Use History: None Reported - Past Family History Father Family Medical History: Coronary Artery Disease (CAD), Diabetes Mellitus, Hypertension, Renal Disease Mother Family Medical History: Congestive Heart Failure (CHF), Coronary Artery Disease (CAD), Diabetes Mellitus, Hypertension, Sleep Apnea/CPAP/BIPAP, Thyroid Disorder Brother(s) Family Medical History: Coronary Artery Disease (CAD), Hypertension General Exam Limitations: no limitations General appearance: alert, in no apparent distress Head exam: Present: atraumatic, normocephalic Eye exam: Present: normal appearance. Absent: scleral icterus, conjunctival injection Neck exam: Present: normal inspection Respiratory exam: Present: normal lung sounds bilaterally. Absent: respiratory distress, wheezes, rales, rhonchi, stridor Cardiovascular Exam: Present: regular rate, normal rhythm, normal heart sounds. Absent: systolic murmur, diastolic murmur, rubs, gallop GI/Abdominal exam: Present: soft, tenderness (Right-sided abdominal tenderness). Absent: distended, guarding, rebound, rigid, pulsatile mass, hernia Extremities exam: Present: normal inspection, normal capillary refill. Absent: pedal edema, calf tenderness Back exam: Present: normal inspection. Absent: CVA tenderness (R), CVA tenderness (L) Neurological exam: Present: alert Skin exam: Present: warm, dry, intact, normal color. Absent: rash Course Vital Signs 04/11/23 04/11/23 04/11/23 15:18 16:09 17:24 Temperature 97.6 F Pulse Rate 64 Respiratory 24 Rate Blood Pressure 142/87 137/96 151/89 O2 Sat by Pulse 96 Oximetry 04/11/23 18:42 Temperature 98.1 F Pulse Rate 58 L Respiratory 18 Rate Blood Pressure 144/74 O2 Sat by Pulse 99 Oximetry Medical Decision Making - Medical Decision Making The patient had CT of the abdomen and pelvis which I interpreted as showing retroperitoneal mass. Was pt. sent in by a medical professional or institution (, [facility], NANOSCIENCE TECHNICIAN, urgent care, hospital, or fci...) When possible be specific @ -[No] Did you speak to anyone other than the patient for history (EMS, parent, family, police, friend...)? What history was obtained from this source @ -[No] Did you review nursing and triage notes (agree or disagree)? Why? @ -[I reviewed and agree with nursing and triage notes] Were old charts reviewed (outside hosp., previous admission, EMS record, old EKG, old radiological studies, urgent care reports/EKG's, fci records)? Report findings @ -[No old charts were reviewed] Differential Diagnosis (chest pain, altered mental status, abdominal pain women, abdominal pain men, vaginal bleeding, weakness, fever, dyspnea, syncope, headache, dizziness, GI bleed, back pain, seizure, CVA, palpatations, mental health, musculoskeletal)? @ -[MDM differential abdominal pain EKG interpreted by me (3pts min.). @ -[As above] X-rays interpreted by me (1pt min.). @ -[None done] CT interpreted by me (1pt min.). @ -[I interpreted as above U/S interpreted by me (1pt. min.). @ -[None done] What testing was considered but not performed or refused? (CT, X-rays, U/S, labs)? Why? @ -[None] What meds were considered but not given or refused? Why? @ -[None] Did you discuss the management of the patient with other professionals (professionals i.e. [facility] [place], NANOSCIENCE TECHNICIAN, lab, RT, psych nurse, social work program coordinator, telegraph equipment maintainer, teacher, customer service security officer, shoe caser)? Give summary @ -[No] Was smoking cessation discussed for >3mins.? @ -[No] Was critical care preformed (if so, how long)? @ -[No] Were there social determinants of health that impacted care today? How? (Homelessness, low income, unemployed, alcoholism, drug addiction, transportation, low edu. Level, literacy, decrease access to med. care, shelter, rehab)? @ -[No] Was there de-escalation of care discussed even if they declined (Discuss DNR or withdrawal of care, Hospice)? DNR status @ -[No] What co-morbidities impacted this encounter? (DM, HTN, Smoking, COPD, CAD, Cancer, CVA, ARF, Chemo, Hep., AIDS, mental health diagnosis, sleep apnea, morbid obesity)? @ -[None] Was patient admitted / discharged? Hospital course, mention meds given and r oute, prescriptions, significant lab abnormalities, going to OR and other pertinent info. @ -[Patient is 52-year-old woman presenting with flank pain that did not respond well to treatment with analgesics here and she continued to have significant pain. The patient workup did show moderate sized retroperitoneal mass in the area of the patient's pain. Given this she will be admitted to have symptom control and further evaluation. Undiagnosed new problem with uncertain prognosis? @ -[No] Drug Therapy requiring intensive monitoring for toxicity (Heparin, Nitro, Insulin, Cardizem)? @ -[No] Were any procedures done? @ -[No] Diagnosis/symptom? @ -[Right retroperitoneal mass Acute intractable flank pain Acute, or Chronic, or Acute on Chronic? @ -Acute Uncomplicated (without systemic symptoms) or Complicated (systemic symptoms)? @ -[Uncomplicated Side effects of treatment? @ -[No] Exacerbation, Progression, or Severe Exacerbation? @ -[No] Poses a threat to life or bodily function? How? (Chest pain, [place], [place], pneumonia, PE, COPD, DKA, ARF, appy, cholecystitis, CVA, Diverticulitis, Homicidal, Suicidal, threat to staff... and all critical care pts) @ -[Yes, there is threat to life as the retroperitoneal mass may represent malignancy - Lab Data Result diagrams: 04/13/23 07:04 04/13/23 07:04 Lab Results 04/11/23 04/11/23 04/11/23 Range/Units 15:27 15:27 16:00 WBC 13.0 H (3.8-10.6) k/uL RBC 5.30 (3.80-5.40) m/uL Hgb 14.4 (11.4-16.0) gm/dL Hct 43.6 (34.0-46.0) % MCV 82.4 (80.0-100.0) fL MCH 27.1 (25.0-35.0) pg MCHC 32.9 (31.0-37.0) g/dL RDW 14.2 (11.5-15.5) % Plt Count 268 (150-450) k/uL MPV 8.2 Neutrophils % 82 % Lymphocytes % 11 % Monocytes % 4 % Eosinophils % 1 % Basophils % 0 % Neutrophils # 10.7 H (1.3-7.7) k/uL Lymphocytes # 1.4 (1.0-4.8) k/uL Monocytes # 0.5 (0-1.0) k/uL Eosinophils # 0.2 (0-0.7) k/uL Basophils # 0.0 (0-0.2) k/uL Sodium 138 (137-145) mmol/L Potassium 3.5 (3.5-5.1) mmol/L Chloride 101 (98-107) mmol/L Carbon Dioxide 23 (22-30) mmol/L Anion Gap 14 mmol/L BUN 27 H (7-17) mg/dL Creatinine 0.85 (0.52-1.04) mg/dL Est GFR (CKD-EPI)AfAm >90 (>60 ml/min/1.73 sqM) Est GFR (CKD-EPI)NonAf 80 (>60 ml/min/1.73 sqM) Glucose 111 H (74-99) mg/dL Lactic Ac Sepsis Rflx Plasma Lactic Acid Abe[place] 2.5 H* (0.7-2.0) mmol/L Calcium 10.2 (8.4-10.2) mg/dL Total Bilirubin 0.6 (0.2-1.3) mg/dL AST 18 (14-36) U/L ALT 12 (4-34) U/L Alkaline Phosphatase 119 (38-126) U/L Total Protein 7.9 (6.3-8.2) g/dL Albumin 4.1 (3.5-5.0) g/dL Amylase 48 (30-110) U/L Lipase 70 (23-300) U/L Urine Color Urine Appearance (Clear) Urine pH (5.0-8.0) Ur Specific [place] (1.001-1.035) Urine Protein (Negative) Urine Glucose (UA) (Negative) Urine Ketones (Negative) Urine Blood (Negative) Urine Nitrite (Negative) Urine Bilirubin (Negative) Urine Urobilinogen (<2.0) mg/dL Ur Leukocyte Esterase (Negative) Urine RBC (0-5) /hpf Urine WBC (0-5) /hpf Ur Squamous Epith Cells (0-4) /hpf Urine Mucus (None) /hpf Urine HCG, Qual (Not Detectd) 04/11/23 04/11/23 04/11/23 Range/Units 16:32 17:05 17:05 WBC (3.8-10.6) k/uL RBC (3.80-5.40) m/uL Hgb (11.4-16.0) gm/dL Hct (34.0-46.0) % MCV (80.0-100.0) fL MCH (25.0-35.0) pg MCHC (31.0-37.0) g/dL RDW (11.5-15.5) % Plt Count (150-450) k/uL MPV Neutrophils % % Lymphocytes % % Monocytes % % Eosinophils % % Basophils % % Neutrophils # (1.3-7.7) k/uL Lymphocytes # (1.0-4.8) k/uL Monocytes # (0-1.0) k/uL Eosinophils # (0-0.7) k/uL Basophils # (0-0.2) k/uL Sodium (137-145) mmol/L Potassium (3.5-5.1) mmol/L Chloride (98-107) mmol/L Carbon Dioxide (22-30) mmol/L Anion Gap mmol/L BUN (7-17) mg/dL Creatinine (0.52-1.04) mg/dL Est GFR (CKD-EPI)AfAm (>60 ml/min/1.73 sqM) Est GFR (CKD-EPI)NonAf (>60 ml/min/1.73 sqM) Glucose (74-99) mg/dL Lactic Ac Sepsis Rflx Y Plasma Lactic Acid [place] (0.7-2.0) mmol/L Calcium (8.4-10.2) mg/dL Total Bilirubin (0.2-1.3) mg/dL AST (14-36) U/L ALT (4-34) U/L Alkaline Phosphatase (38-126) U/L Total Protein (6.3-8.2) g/dL Albumin (3.5-5.0) g/dL Amylase (30-110) U/L Lipase (23-300) U/L Urine Color Dark Yellow Urine Appearance Cloudy H (Clear) Urine pH 7.0 (5.0-8.0) Ur Specific [place] 1.024 (1.001-1.035) Urine Protein Trace H (Negative) Urine Glucose (UA) Negative (Negative) Urine Ketones 1+ (Negative) Urine Blood Moderate (Negative) Urine Nitrite Negative (Negative) Urine Bilirubin Negative (Negative) Urine Urobilinogen 2.0 (<2.0) mg/dL Ur Leukocyte Esterase Negative (Negative) Urine RBC 14 H (0-5) /hpf Urine WBC 1 (0-5) /hpf Ur Squamous Epith Cells 4 (0-4) /hpf Urine Mucus Moderate H (None) /hpf Urine HCG, Qual Not Detected (Not Detectd) Disposition Clinical Impression: Intractable abdominal pain, Retroperitoneal mass Disposition: ADMITTED IP TO THIS [facility] Condition: Stable Is patient prescribed a controlled substance at d/c from ED?: No
[2023-04-11 16:19] LABS: Basophils % (A) 0 %; Eosinophils # (A) 0.2 k/uL (0-0.7); Eosinophils % (A) 1 %; HCT 43.6 % (34.0-46.0); HGB 14.4 gm/dL (11.4-16.0); Lymphocytes # (A) 1.4 k/uL (1.0-4.8); Lymphocytes % (A) 11 %; MCH 27.1 pg (25.0-35.0); MCHC 32.9 g/dL (31.0-37.0); MCV 82.4 fL (80.0-100.0); Mean Platelet Volume 8.2; Monocytes # (A) 0.5 k/uL (0-1.0); Monocytes % (A) 4 %; Neutrophils # (A) 10.7 k/uL (1.3-7.7); Neutrophils % (A) 82 %; Platelet Count 268 k/uL (150-450); RDW 14.2 % (11.5-15.5)
[2023-04-11 16:27] LABS: ALT 12 U/L (4-34); AST 18 U/L (14-36); African American GFR (CKD) >90 (>60 ml/min/1.73 sqM); Albumin 4.1 g/dL (3.5-5.0); Alkaline Phosphatase 119 U/L (38-126); Amylase 48 U/L (30-110); Anion Gap 14 mmol/L; Blood Urea Nitrogen 27 mg/dL (7-17); Calcium 10.2 mg/dL (8.4-10.2); Carbon Dioxide 23 mmol/L (22-30); Chloride 101 mmol/L (98-107); Glucose 111 mg/dL (74-99); Lipase 70 U/L (23-300); Non-African American GFR(CKD) 80 (>60 ml/min/1.73 sqM); Potassium 3.5 mmol/L (3.5-5.1); Sodium 138 mmol/L (137-145); Total Bilirubin 0.6 mg/dL (0.2-1.3); Total Protein 7.9 g/dL (6.3-8.2)
--- NOTE | 2023-04-11 17:24 | CT ---
EXAMINATION TYPE: CT abdomen pelvis wo con CT DLP: 1350.4 mGycm, Automated exposure control for dose reduction was used. DATE OF EXAM: 04/11/2023 4:48 PM COMPARISON: None CLINICAL INDICATION:Female, 52 years old with history of Right abdominal pain; Rt sided abdominal veronica n since noon today. TECHNIQUE: Axial CT of the ;CT abdomen pelvis wo con;Sagittal and coronal reformats were created on a separate workstation. Contrast used: (none if empty) Oral contrast used: without Oral Contrast (none if empty) FINDINGS: LOWER CHEST: Unremarkable ABDOMEN LIVER: Unremarkable GALLBLADDER AND BILE DUCTS: Unremarkable. PANCREAS: Unremarkable. SPLEEN: Unremarkable. ADRENAL GLANDS: Unremarkable. KIDNEYS AND URETERS: No evidence of hydronephrosis or renal calculus. The ureters are unremarkable. There is a fat-containing mass near the right kidney measuring 11.9 x 10.6 x 11.7 cm this immediately abuts the right kidney The right collecting system is displaced secondary to this large mass. PELVIS BLADDER: Unremarkable REPRODUCTIVE: Unremarkable. ABDOMEN & PELVIS STOMACH AND BOWEL: No evidence of bowel obstruction. Scattered colonic diverticula are present. The a ppendix is normal. PERITONEUM/RETROPERITONEUM: No evidence of pneumoperitoneum or free fluid. VASCULATURE: No evidence of aortic aneurysm. MUSCULOSKELETAL: No acute osseous abnormalities. Moderate disc degeneration changes are present throu ghout the thoracolumbar spine. LYMPH NODES: No gross evidence for lymphadenopathy. SOFT TISSUE/ABDOMINAL WALL: Unremarkable IMPRESSION: 1. Large right retroperitoneal fat containing mass unclear if this is a angiomyolipoma from the righ t kidney versus a liposarcoma versus lipoma from the retroperitoneum versus other etiologies. There i s mass effect upon the right renal collecting system without evidence for obstructive uropathy. 2. No evidence for acute abdominal process in the abdomen/pelvis otherwise. 3. Normal appendix. 4. Colonic diverticulosis.
[2023-04-11 18:01] LABS: Mucus,Urine Moderate /hpf; RBC,Urine 14 /hpf (0-5); Squamous Epithelial Cell,Urine 4 /hpf (0-4); WBC,Urine 1 /hpf (0-5)
[2023-04-11 18:12] LABS: Appearance,Urine Cloudy (Clear); Color,Urine Dark Yellow
[2023-04-11] MEDS ORDERED: HYDROmorphone 0.5 MG/0.5 ML SYRINGE IVP STA (18:12)
[2023-04-11 18:13] LABS: Bilirubin,Urine Negative (Negative); Blood,Urine Moderate (Negative); Glucose,Urine (UA) Negative (Negative); Ketones,Urine 1+ (Negative); Leukocyte Esterase,Urine Negative (Negative); Nitrite,Urine Negative (Negative); Protein,Urine Trace (Negative); Specific Gravity,Urine 1.024 (1.001-1.035)
[2023-04-11] MEDS ORDERED: DOCUSATE 100 MG CAP PO PRN (18:42)
[2023-04-11] MEDS ORDERED: MAG HYDROX/AL HYDROX/SIMETH 30 ML CUP PO PRN (18:42)
[2023-04-11] MEDS ORDERED: NALOXONE 0.4 MG/ML 1 ML VIAL IV PRN (18:42)
[2023-04-11] MEDS ORDERED: HYDROmorphone 0.5 MG/0.5 ML SYRINGE IVP PRN (18:42)
[2023-04-11] MEDS: SODIUM CHLORIDE 0.9% 1,000 ML IV SCH (18:55)
[2023-04-11] MEDS: FAMOTIDINE 20 MG TAB PO SCH ×2 (21:08→21:09)
--- NOTE | 2023-04-11 23:05 | P.HPIM ---
History of Present Illness H&P Date: 04/11/23 Patient is a 52-year-old female with a PMH of hypertension and hypothyroidism who presents to the emergency room with complaints of right sided abdominal discomfort. Patient notes she was in her usual state of health earlier today at around noon when she suddenly developed nausea followed by a right-sided sharp abdominal discomfort. The pain was initially 10 out of 10, nonradiating, aching and sharp-like in nature, with no alleviating or exacerbating features. She reports significant nausea with up to 8 episodes of nonbloody nonbilious emesis throughout the day today. No state the pain has improved to a 7 out of 10 at the time of interview. Denies any prior history of such pain. Denies present fever, chills, diarrhea or chest discomfort, shortness of breath. In the emergency room a CT abdomen and pelvis revealed a large right-sided retroperitoneal fat containing mass with a differential including angiomyolipoma versus lipoma versus liposarcoma with mass effect upon the right renal collecting system without evidence for obstructive uropathy. There was also colonic diverticulosis with no other acute abnormalities. Laboratory evaluation revealed leukocytosis of 13.0, lactic acid 2.5, BUN 27, glucose 111, with 14 RBCs. ED documentation reviewed and case discussed with ED provider. Review of systems: Pertinent positives and negatives as discussed in HPI, a complete review of systems was performed and all other systems are negative. Physical examination: Vital signs reviewed General: non toxic, no distress, appears at stated age, obese Derm: no unusual rashes/lesions, warm Head: atraumatic, normocephalic, symmetric Eyes: EOMI, no lid lag, anicteric sclera, pupils equal round reactive to light ENT: Nose and ears atraumatic Neck: No cervical lymphadenopathy, trachea midline, supple Mouth: no lip lesion, mucus membranes moist Cardiovascular: S1S2 reg, no murmur, positive dorsalis pedis pulse bilateral, no edema Lungs: CTA bilateral, no rhonchi, no rales, no accessory muscle use Abdominal: soft, moderate right sided tenderness, minimal guarding Ext: muscle strength 5 out of 5 in all 4 extremities grossly, no gross muscle atrophy, no contractures, Neuro: CN II-XI grossly intact, no gross focal neuro deficits Psych: Alert, oriented, appropriate affect Assessment: Large right sided retroperitoneal mass with mass effect Abdominal pain with intractable nausea and vomiting, likely secondary to above Lactic acidosis, likely due to dehydration, no sepsis Leukocytosis, likely due to acute stressor with no signs of active infection at this time Chronic conditions: Hypertension, hypothyroidism Imaging: In the emergency room a CT abdomen and pelvis revealed a large right-sided retroperitoneal fat containing mass with a differential including angiomyolipoma versus lipoma versus liposarcoma with mass effect upon the right renal collecting system without evidence for obstructive uropathy. There was also colonic diverticulosis with no other acute abnormalities. Data Review: Laboratory evaluation revealed leukocytosis of 13.0, lactic acid 2.5, BUN 27, glucose 111, with 14 RBCs. Plan: Urology consulted for possible biopsy MRI of abdomen with and without contrast ordered Antiemetics and pain control Continue with IV fluids and Monitor lactic acid for resolution DVT prophylaxis: Lovenox Subq The patient is admitted with an anticipated greater than 2 midnight stay for evaluation of R sided mass CODE STATUS: Full Code Discussed with: Patient Anticipated discharge place: Home Past Medical History Past Medical History: Hypertension, Thyroid Disorder Additional Past Medical History / Comment(s): RECENT SUPERFICIAL VENOUS THROMBOSIS RLE-12/2020-ABLATION OF VARICOSE VEINS History of Any Multi-Drug Resistant Organisms: None Reported Past Surgical History: Breast Surgery, Heart Catheterization Additional Past Surgical History / Comment(s): radioactive iodine FOR THYROID, varicose vein surgery, I & D RIGHT BREAST FOR ABCESS, WISDOM TEETH REMOVED UNDER ANESTHESIA, CLEAR CARDIAC CATH 01/2021 Past Anesthesia/Blood Transfusion Reactions: No Reported Reaction Past Psychological History: No Psychological Hx Reported Smoking Status: Never smoker Past Alcohol Use History: None Reported Past Drug Use History: None Reported - Past Family History Father Family Medical History: Coronary Artery Disease (CAD), Diabetes Mellitus, Hypertension, Renal Disease Mother Family Medical History: Congestive Heart Failure (CHF), Coronary Artery Disease (CAD), Diabetes Mellitus, Hypertension, Sleep Apnea/CPAP/BIPAP, Thyroid Disorder Brother(s) Family Medical History: Coronary Artery Disease (CAD), Hypertension Medications and Allergies Home Medications Medication Instructions Recorded Confirmed Type Cetirizine HCl [Zyrtec] 10 mg PO DAILY 08/07/18 04/11/23 History amLODIPine [Norvasc] 5 mg PO DAILY 10/18/19 04/11/23 History Losartan/Hydrochlorothiazide 1 tab PO DAILY 10/23/19 04/11/23 History [Losartan-Hctz 100-25 mg Tab] Levothyroxine Sodium [Synthroid] 150 mcg PO DAILY 06/24/21 04/11/23 History Cholecalciferol [Vitamin D3 (25 50 mcg PO DAILY 04/11/23 04/11/23 History Mcg = 1000 Iu)] Cyanocobalamin (Vitamin B-12) 1,000 mcg PO DAILY 04/11/23 04/11/23 History [Vitamin B-12] Allergies Allergy/AdvReac Type Severity Reaction Status Date / Time metronidazole [From Flagyl] Allergy Nausea & Verified 04/11/23 19:10 Vomiting moxifloxacin [From Avelox] Allergy Diarrhea Verified 04/11/23 19:10 TYRESE Inhibitors AdvReac Cough Verified 04/11/23 19:10 doxycycline AdvReac Nausea & Verified 04/11/23 19:10 Vomiting Physical Exam Vitals: Vital Signs Temp Pulse Pulse Resp BP BP Pulse Ox 04/11/23 20:26 97.5 F L 62 18 143/82 97 04/11/23 20:20 98.2 F 60 18 147/82 99 04/11/23 18:42 98.1 F 58 L 18 144/74 99 04/11/23 17:24 151/89 04/11/23 16:09 137/96 04/11/23 15:18 97.6 F 64 24 142/87 96 Intake and Output 04/11/23 04/11/23 04/12/23 14:59 22:59 06:59 Other: Weight 120.202 kg Results CBC & Chem 7: 04/11/23 16:00 04/11/23 15:27 Labs: Abnormal Lab Results - Last 24 Hours (Table) 04/11/23 04/11/23 04/11/23 Range/Units 15:27 15:27 16:00 WBC 13.0 H (3.8-10.6) k/uL Neutrophils # 10.7 H (1.3-7.7) k/uL BUN 27 H (7-17) mg/dL Glucose 111 H (74-99) mg/dL Plasma Lactic Acid Abebe 2.5 H* (0.7-2.0) mmol/L Urine Appearance (Clear) Urine Protein (Negative) Urine RBC (0-5) /hpf Urine Mucus (None) /hpf 04/11/23 Range/Units 17:05 WBC (3.8-10.6) k/uL Neutrophils # (1.3-7.7) k/uL BUN (7-17) mg/dL Glucose (74-99) mg/dL Plasma Lactic Acid Abebe (0.7-2.0) mmol/L Urine Appearance Cloudy H (Clear) Urine Protein Trace H (Negative) Urine RBC 14 H (0-5) /hpf Urine Mucus Moderate H (None) /hpf
[2023-04-11] MEDS: HYDROmorphone 1 MG/ML 1 ML SYRINGE IVP PRN (23:42)
--- NOTE | 2023-04-12 01:50 | P.CNPUL ---
History of Present Illness Consult date: 04/12/23 Requesting physician: Reagan Childers Reason for consult: other (Follows with Dr. Mckeon in the office) Chief complaint: Right-sided abdominal pain History of present illness: I am seeing this patient in new consultation today 04/12/2023 after she presented to emergency room yesterday afternoon complaining of severe right- sided abdominal pain. Patient is a 52-year-old white female with past medical history significant for hypertension and hypothyroidism. She does follow with Dr. Mckeon in the office for management of her primary care needs. Yesterday, after lunch, she began to experience sudden, severe 10 out of 10 nonradiating abdominal pain. She did have some associated nausea and nonbilious emesis, mostly food product. Denies any hematemesis, bloody bowel movements, constipa tion. Denies fever. Denies urinary complaints. CT of the abdomen and pelvis without contrast showed a large right retroperitoneal fat containing mass measuring 11.9 x 10.6 x 11.7 cm that abuts the right kidney. No obvious invasion or abdominal metastasis. Differential includes angiomyolipoma or lipoma versus liposarcoma. There is mass effect upon the right renal collecting system without evidence of obstructive uropathy. No other pathological abdominal findings noted. Denies any personal cancer history or familial history of kidney cancer. Denies any recent weight loss. Denies smoking history. Denies any hematuria or urinary complaints. CBC shows WBC count of 13, hemoglobin 14.4, hematocrit 43.6, platelets 168. BMP unremarkable. Lactate was 2.5 and is down to 1.3. LFTs not elevated. Pancreatic enzymes are not elevated. Patient is currently lying in bed, on room air, in no acute distress. She continues to have a moderate amount of abdominal pain especially with palpation. She is hemodynamically stable. Review of Systems AbREVIEW OF SYSTEMS: CONSTITUTIONAL: Denies any recent significant weight loss or weight gain. EYES: Denies change in vision. EARS, NOSE, MOUTH, THROAT: Denies headaches, denies sore throat. CARDIOVASCULAR: Denies chest pain, palpitations or syncopal episodes. RESPIRATORY: Denies shortness of breath, cough, congestion or hemoptysis. GASTROINTESTINAL: See HPI GENITOURINARY: Denies hematuria, denies infections. Denies vaginal bleeding. MUSKULOSKELETAL: Denies pain, denies swelling. INTEGUMENTARY: Denies rash, denies eczema. NEUROLOGICAL: Denies recent memory loss, no recent seizure activity. PSYCHIATRIC: Denies anxiety, denies depression. HEMATOLOGIC/LYMPHATIC: Denies anemia, denies enlarged lymph node Past Medical History Past Medical History: Hypertension, Thyroid Disorder Additional Past Medical History / Comment(s): RECENT SUPERFICIAL VENOUS THROMBOSIS RLE-12/2020-ABLATION OF VARICOSE VEINS History of Any Multi-Drug Resistant Organisms: None Reported Past Surgical History: Breast Surgery, Heart Catheterization Additional Past Surgical History / Comment(s): radioactive iodine FOR THYROID, varicose vein surgery, I & D RIGHT BREAST FOR ABCESS, WISDOM TEETH REMOVED UNDER ANESTHESIA, CLEAR CARDIAC CATH 01/2021 Past Anesthesia/Blood Transfusion Reactions: No Reported Reaction Past Psychological History: No Psychological Hx Reported Smoking Status: Never smoker Past Alcohol Use History: None Reported Past Drug Use History: None Reported - Past Family History Father Family Medical History: Coronary Artery Disease (CAD), Diabetes Mellitus, Hypert ension, Renal Disease Mother Family Medical History: Congestive Heart Failure (CHF), Coronary Artery Disease (CAD), Diabetes Mellitus, Hypertension, Sleep Apnea/CPAP/BIPAP, Thyroid Disorder Brother(s) Family Medical History: Coronary Artery Disease (CAD), Hypertension Medications and Allergies Home Medications Medication Instructions Recorded Confirmed Type Cetirizine HCl [Zyrtec] 10 mg PO DAILY 08/07/18 04/11/23 History amLODIPine [Norvasc] 5 mg PO DAILY 10/18/19 04/11/23 History Losartan/Hydrochlorothiazide 1 tab PO DAILY 10/23/19 04/11/23 History [Losartan-Hctz 100-25 mg Tab] Levothyroxine Sodium [Synthroid] 150 mcg PO DAILY 06/24/21 04/11/23 History Cholecalciferol [Vitamin D3 (25 50 mcg PO DAILY 04/11/23 04/11/23 History Mcg = 1000 Iu)] Cyanocobalamin (Vitamin B-12) 1,000 mcg PO DAILY 04/11/23 04/11/23 History [Vitamin B-12] Allergies Allergy/AdvReac Type Severity Reaction Status Date / Time metronidazole [From Flagyl] Allergy Nausea & Verified 04/11/23 19:10 Vomiting moxifloxacin [From Avelox] Allergy Diarrhea Verified 04/11/23 19:10 TYRESE Inhibitors AdvReac Cough Verified 04/11/23 19:10 doxycycline AdvReac Nausea & Verified 04/11/23 19:10 Vomiting Physical Exam Vitals: Vital Signs Temp Pulse Pulse Resp BP BP Pulse Ox 04/11/23 20:26 97.5 F L 62 18 143/82 97 04/11/23 20:20 98.2 F 60 18 147/82 99 04/11/23 18:42 98.1 F 58 L 18 144/74 99 04/11/23 17:24 151/89 04/11/23 16:09 137/96 04/11/23 15:18 97.6 F 64 24 142/87 96 Intake and Output 04/11/23 04/11/23 04/12/23 14:59 22:59 06:59 Other: Weight 120.202 kg GENERAL EXAM: Alert, 52-year-old white female , comfortable in no apparent distress. HEAD: Normocephalic and atraumatic EYES: Normal reaction of pupils, equal size. NOSE: Clear with pink turbinates. THROAT: No erythema or exudates. NECK: No masses, no JVD. CHEST: No chest wall deformity. LUNGS: Equal air entry with no crackles, wheeze, rhonchi or dullness. On room air. No conversational dyspnea or accessory muscle use.. CVS: S1 and S2 normal with no audible murmur, regular rhythm. No extra heart sounds ABDOMEN: No hepatosplenomegaly, active bowel sounds. There is a palpable right sided mass with bimanual palpation. Facial grimacing and guarding. SPINE: No scoliosis or deformity SKIN: No rashes CENTRAL NERVOUS SYSTEM: No focal deficits, tone is normal in all 4 extremities. EXTREMITIES: There is no peripheral edema, clubbing, or cyanosis. Peripheral pulses are intact. Results - Laboratory Findings CBC and BMP: 04/12/23 07:28 04/11/23 15:27 Abnormal lab findings: Abnormal Labs 04/11/23 04/11/23 04/11/23 15:27 15:27 16:00 WBC 13.0 H Neutrophils # 10.7 H BUN 27 H Glucose 111 H Plasma Lactic Acid Abebe 2.5 H* Urine Appearance Urine Protein Urine RBC Urine Mucus 04/11/23 17:05 WBC Neutrophils # BUN Glucose Plasma Lactic Acid Abebe Urine Appearance Cloudy H Urine Protein Trace H Urine RBC 14 H Urine Mucus Moderate H Assessment and Plan Assessment: Large right-sided fat-containing retroperitoneal mass measuring 11.9 x 10.6 x 11.7 cm that abuts the right kidney. No obvious evidence of invasion or metastasis within the abdomen per CT report. Differential includes ang iomyolipoma, lipoma, versus liposarcoma. There is mass effect on the right renal collecting system without evidence of obstruction or hydronephrosis. Abdominal pain, secondary to above Benign essential hypertension Hypothyroidism Morbid obesity, with a BMI of 40.3 kg/m Plan: Patient's medications, labs, imaging reviewed. Patient does have rather large retroperitoneal mass, currently under investigation. Favored to be benign, however, malignancy is not excluded. MRI of the abdomen is ordered for the morning. Will likely require consult to interventional radiology for biopsy. Lovenox for DVT prophylaxis and Pepcid for GI prophylaxis. Home medications were restarted. We will continue to follow, and further recommendations are forthcoming. I have personally seen and examined the patient, performed the documentation and the assessment and plan as written. Number of minutes spent on the visit:20 This patient is seen in the joint evaluation along with a nurse practitioner. This evaluation was done in more than 30 minutes. In summary, the patient is having subacute/acute pain in her right upper quadrant and the patient is significant, estimated to be 5 out of 10 in severity this morning. No evidence of any bowel obstruction. No evidence of any hematuria. No evidence of any active infection despite some mild leukocytosis. The patient has a fat- containing masslike lesion in the retroperitoneum as discussed. The possibility of a liposarcoma cannot be completely excluded. MRI of the abdomen is in progress to further characterize the retroperitoneal mass and decide if biopsy is needed. Prescription the case with oncology. Discussed the case with interv entional radiology. We'll check LDH. We'll check pro calcitonin. We'll continue to follow. Britt control with Dilaudid. Zofran for nausea. Resume home medications. Will follow. Time with Patient: Greater than 30
[2023-04-12] MEDS: HYDROmorphone 1 MG/ML 1 ML SYRINGE IVP PRN ×3 (05:10→20:54)
[2023-04-12] MEDS: ONDANSETRON 4 MG/2 ML VIAL IVP PRN ×2 (05:18→12:50)
[2023-04-12] MEDS: LEVOTHYROXINE 75 MCG TAB PO SCH (06:00)
[2023-04-12 08:08] LABS: HCT 43.6 % (34.0-46.0); HGB 14.2 gm/dL (11.4-16.0); MCH 27.5 pg (25.0-35.0); MCHC 32.6 g/dL (31.0-37.0); MCV 84.3 fL (80.0-100.0); Mean Platelet Volume 8.2; Platelet Count 278 k/uL (150-450); RBC 5.18 m/uL (3.80-5.40); RDW 14.1 % (11.5-15.5); WBC 21.6 k/uL (3.8-10.6)
[2023-04-12] MEDS: CYANOCOBALAMIN 500 MCG TAB PO SCH (08:11)
[2023-04-12] MEDS: amLODIPine 5 MG TAB PO SCH (08:11)
[2023-04-12] MEDS: CHOLECALCIFEROL 25 MCG (1000 IU) TABLET PO SCH (08:11)
[2023-04-12] MEDS: LORATADINE 10 MG TAB PO SCH (08:11)
--- NOTE | 2023-04-12 08:14 | P.GSCN ---
History of Present Illness Consult date: 04/12/23 History of present illness: 52-year-old female admitted to the hospital with severe right upper quadrant pain and a new diagnosed retroperitoneal mass, right, 10 cm on 04/11/23. SHe was completely asymptomatic until around noon time yesterday when she developed severe pain. She was thinking gallbladder but ended up in the emergency room and a computed tomography scan identified the 10 cm fat-containing retroperitoneal mass. The mass is pushing on the right kidney. Based on radiographic appearance one of the considerations in the differential diagnosis was an angiomyolipoma of the kidney. The patient is interviewed at the bedside. The computed tomography scan is reviewed by myself. Urologically the patient has no issues. She has not had previous flank pain, hematuria, urinary tract problems such as kidney stones, urine infections or previous urologic surgery. The urinalysis shows a small amount of microscopic hematuria. The lesion shows fat but no distinct connection to the kidney. There is minimal hydronephrosis due to compression. She has no problems urinating. Her pain is under control at this point in time. There is no history of trauma. There is no family history of unusual diseases. The patient is otherwise healthy. Review of Systems All systems: negative - Constitutional Denies fever, Denies weight loss - EENT Eyes: denies blurred vision Ears, nose, mouth and throat: Denies dysphagia - Cardiovascular Denies chest pain, Denies shortness of breath - Respiratory Denies cough, Denies 7 - Gastrointestinal Reports as per HPI - Genitourinary Genitourinary: Denies dysuria, Denies hematuria - Integumentary Denies rash, Denies unusual bruising - Neurological Denies headaches, Denies syncope - Hematologic/Lymphatic Denies easy bleeding, Denies easy bruising Past Medical History Past Medical History: Hypertension, Thyroid Disorder Additional Past Medical History / Comment(s): RECENT SUPERFICIAL VENOUS THROMBOSIS RLE-12/2020-ABLATION OF VARICOSE VEINS History of Any Multi-Drug Resistant Organisms: None Reported Past Surgical History: Breast Surgery, Heart Catheterization Additional Past Surgical History / Comment(s): radioactive iodine FOR THYROID, varicose vein surgery, I & D RIGHT BREAST FOR ABCESS, WISDOM TEETH REMOVED UNDER ANESTHESIA, CLEAR CARDIAC CATH 01/2021 Past Anesthesia/Blood Transfusion Reactions: No Reported Reaction Past Psychological History: No Psychological Hx Reported Smoking Status: Never smoker Past Alcohol Use History: None Reported Past Drug Use History: None Reported - Past Family History Father Family Medical History: Coronary Artery Disease (CAD), Diabetes Mellitus, Hypertension, Renal Disease Mother Family Medical History: Congestive Heart Failure (CHF), Coronary Artery Disease (CAD), Diabetes Mellitus, Hypertension, Sleep Apnea/CPAP/BIPAP, Thyroid Disorder Brother(s) Family Medical History: Coronary Artery Disease (CAD), Hypertension Medications and Allergies Home Medications Medication Instructions Recorded Confirmed Type Cetirizine HCl [Zyrtec] 10 mg PO DAILY 08/07/18 04/11/23 History amLODIPine [Norvasc] 5 mg PO DAILY 10/18/19 04/11/23 History Losartan/Hydrochlorothiazide 1 tab PO DAILY 10/23/19 04/11/23 History [Losartan-Hctz 100-25 mg Tab] Levothyroxine Sodium [Synthroid] 150 mcg PO DAILY 06/24/21 04/11/23 History Cholecalciferol [Vitamin D3 (25 50 mcg PO DAILY 04/11/23 04/11/23 History Mcg = 1000 Iu)] Cyanocobalamin (Vitamin B-12) 1,000 mcg PO DAILY 04/11/23 04/11/23 History [Vitamin B-12] Allergies Allergy/AdvReac Type Severity Reaction Status Date / Time metronidazole [From Flagyl] Allergy Nausea & Verified 04/11/23 19:10 Vomiting moxifloxacin [From Avelox] Allergy Diarrhea Verified 04/11/23 19:10 TYRESE Inhibitors AdvReac Cough Verified 04/11/23 19:10 doxycycline AdvReac Nausea & Verified 04/11/23 19:10 Vomiting Surgical - Exam Vital Signs Temp Pulse Resp BP Pulse Ox 97.6 F 64 24 142/87 96 04/11/23 15:18 04/11/23 15:18 04/11/23 15:18 04/11/23 15:18 04/11/23 15:18 - General obese - Eyes normal ocular movement, no icteric - ENT no hearing loss, no congestion - Neck no masses, trachea midline - Respiratory normal respiratory effort, clear to auscultation - Abdomen Mild tenderness in the right upper quadrant. No flank pain Abdomen: soft, tender, no guarding, no rigid, no rebound - Integumentary no rash, no abnormal pigmentation - Neurologic no disoriented, no combative - Musculoskeletal No lower extremity edema. Normal posture - Psychiatric oriented to time, oriented to person, oriented to place, speech is normal, memory intact Results - Labs 04/11/23 16:00 04/11/23 15:27 Abnormal Lab Results - Last 24 Hours (Table) 04/11/23 04/11/23 04/11/23 Range/Units 15:27 15:27 16:00 WBC 13.0 H (3.8-10.6) k/uL Neutrophils # 10.7 H (1.3-7.7) k/uL BUN 27 H (7-17) mg/dL Glucose 111 H (74-99) mg/dL Plasma Lactic Acid Abebe 2.5 H* (0.7-2.0) mmol/L Urine Appearance (Clear) Urine Protein (Negative) Urine RBC (0-5) /hpf Urine Mucus (None) /hpf 04/11/23 Range/Units 17:05 WBC (3.8-10.6) k/uL Neutrophils # (1.3-7.7) k/uL BUN (7-17) mg/dL Glucose (74-99) mg/dL Plasma Lactic Acid Abebe (0.7-2.0) mmol/L Urine Appearance Cloudy H (Clear) Urine Protein Trace H (Negative) Urine RBC 14 H (0-5) /hpf Urine Mucus Moderate H (None) /hpf Diabetes panel 04/11/23 Range/Units 15:27 Sodium 138 (137-145) mmol/L Potassium 3.5 (3.5-5.1) mmol/L Chloride 101 (98-107) mmol/L Carbon Dioxide 23 (22-30) mmol/L BUN 27 H (7-17) mg/dL Creatinine 0.85 (0.52-1.04) mg/dL Glucose 111 H (74-99) mg/dL Calcium 10.2 (8.4-10.2) mg/dL AST 18 (14-36) U/L ALT 12 (4-34) U/L Alkaline Phosphatase 119 (38-126) U/L Total Protein 7.9 (6.3-8.2) g/dL Albumin 4.1 (3.5-5.0) g/dL Calcium panel 04/11/23 Range/Units 15:27 Calcium 10.2 (8.4-10.2) mg/dL Albumin 4.1 (3.5-5.0) g/dL Pituitary panel 04/11/23 Range/Units 15:27 Sodium 138 (137-145) mmol/L Potassium 3.5 (3.5-5.1) mmol/L Chloride 101 (98-107) mmol/L Carbon Dioxide 23 (22-30) mmol/L BUN 27 H (7-17) mg/dL Creatinine 0.85 (0.52-1.04) mg/dL Glucose 111 H (74-99) mg/dL Calcium 10.2 (8.4-10.2) mg/dL Adrenal panel 04/11/23 Range/Units 15:27 Sodium 138 (137-145) mmol/L Potassium 3.5 (3.5-5.1) mmol/L Chloride 101 (98-107) mmol/L Carbon Dioxide 23 (22-30) mmol/L BUN 27 H (7-17) mg/dL Creatinine 0.85 (0.52-1.04) mg/dL Glucose 111 H (74-99) mg/dL Calcium 10.2 (8.4-10.2) mg/dL Total Bilirubin 0.6 (0.2-1.3) mg/dL AST 18 (14-36) U/L ALT 12 (4-34) U/L Alkaline Phosphatase 119 (38-126) U/L Total Protein 7.9 (6.3-8.2) g/dL Albumin 4.1 (3.5-5.0) g/dL - Imaging CT scan - abdomen: report reviewed, image reviewed CT scan - pelvis: report reviewed, image reviewed Assessment and Plan Assessment: Impression: Large right retroperitoneal mass, fat containing. Recommendations: This is unlikely to be an angiomyolipoma the kidney based on its appearance, presentation and lack of notable heaturia. It does not appear to be connected to the kidney. The kidney has been distorted superiorly and with some mild hydronephrosis due to the mass. It is my impression that this is a retroperitoneal, non-urologic mass. The patient is getting a MRI this morning. She will probably need a biopsy eventually. We will follow this with you. Time with Patient: Greater than 30
[2023-04-12] MEDS ORDERED: ENOXAPARIN 40 MG/0.4 ML SYRINGE SQ SCH (09:00)
[2023-04-12] MEDS: LOSARTAN-HCTZ 50-12.5 MG 1 EACH TAB PO SCH (09:29)
[2023-04-12] MEDS: ACETAMINOPHEN TAB 325 MG TAB PO PRN ×2 (12:03→18:55)
[2023-04-12 13:05] LABS: INR 1.2 (<1.2); Prothrombin Time 12.8 sec (10.0-12.5)
--- NOTE | 2023-04-12 13:59 | P.PN ---
Subjective Progress Note Date: 04/12/23 Hospital Course: 52-year-old female with a PMH of hypertension and hypothyroidism who presents to the emergency room with complaints of right sided abdominal discomfort. In the emergency room a CT abdomen and pelvis revealed a large right-sided retroperitoneal fat containing mass with a differential including angiomyolipoma versus lipoma versus liposarcoma with mass effect upon the right renal collecting system without evidence for obstructive uropathy. There was also colonic diverticulosis with no other acute abnormalities. Laboratory evaluation revealed leukocytosis of 13.0, lactic acid 2.5, BUN 27, glucose 111, with 14 RBCs. Urology consulted. MRI abdomen pending. Subjective: See and examined at bedside. No acute events overnight. Still having right- sided abdominal pain. Pertinent positives and negatives as discussed above, a complete review of systems was performed and all other systems are negative. Vitals Signs Reviewed. General: nontoxic, no distress, appears at stated age Derm: warm, dry Head: atraumatic, normocephalic, symmetric Eyes: EOMI, no lid lag, anicteric sclera Mouth: no lip lesion, mucus membranes moist Cardiovascular: S1S2 reg, no murmur Lungs: CTA bilateral, no rhonchi, no rales , no accessory muscle use Abdominal: soft, nontender to palpation, no guarding, no appreciable organomegaly Ext: no gross muscle atrophy, no edema, no contractures Neuro: CN II-XI grossly intact, no focal neuro deficits Psych: Alert, oriented, appropriate affect Data Reviewed Today: Pertinent Labs: wbc 21.6, Hgb 14.2 Imaging: No new imaging Assessment and Plan: Large right sided retroperitoneal mass with mass effect Abdominal pain with intractable nausea and vomiting, likely secondary to above Leukocytosis, likely due to acute stressor with no signs of active infection at this time -Urology note reviewed, will likely need biopsy after the MRI -MRI abdomen with and without contrast pending -Oncology also consulted -Discussed management with pulmonology, concern for liposarcoma -Pain management with Tylenol 650 every 6 hours as needed, IV Dilaudid 0.5 mg and 1 mg every 3 hours as needed -Repeat CBC and BMP tomorrow Result: Lactic acidosis Chronic conditions: Hypertension, hypothyroidism DVT ppx: SCDs Code status: Full code Anticipated discharge place: Pending clinical course Anticipated discharge time: Pending clinical course Objective - Vital Signs Vital signs: Vital Signs Temp 99.7 F H 12/06/23 11:54 Pulse 76 04/12/23 09:30 Resp 18 04/12/23 07:54 BP 112/66 04/12/23 09:30 Pulse Ox 96 04/12/23 09:30 FiO2 Intake & Output 04/11/23 04/12/23 04/12/23 18:59 06:59 18:59 Output Total 100 Balance -100 Weight 120.202 kg 120.202 kg Output: Emesis 100 Other: # Voids 1 - Labs CBC & Chem 7: 04/12/23 07:28 04/11/23 15:27 Labs: Abnormal Lab Results - Last 24 Hours (Table) 04/11/23 04/11/23 04/11/23 Range/Units 15:27 15:27 16:00 WBC 13.0 H (3.8-10.6) k/uL Neutrophils # 10.7 H (1.3-7.7) k/uL PT (10.0-12.5) sec INR (<1.2) BUN 27 H (7-17) mg/dL Glucose 111 H (74-99) mg/dL Plasma Lactic Acid Abebe 2.5 H* (0.7-2.0) mmol/L Urine Appearance (Clear) Urine Protein (Negative) Urine RBC (0-5) /hpf Urine Mucus (None) /hpf 04/11/23 04/12/23 04/12/23 Range/Units 17:05 07:28 12:27 WBC 21.6 H (3.8-10.6) k/uL Neutrophils # (1.3-7.7) k/uL PT 12.8 H (10.0-12.5) sec INR 1.2 H (<1.2) BUN (7-17) mg/dL Glucose (74-99) mg/dL Plasma Lactic Acid Abebe (0.7-2.0) mmol/L Urine Appearance Cloudy H (Clear) Urine Protein Trace H (Negative) Urine RBC 14 H (0-5) /hpf Urine Mucus Moderate H (None) /hpf
--- NOTE | 2023-04-12 16:31 | MR ---
EXAMINATION TYPE: MR abdomen wo/w con DATE OF EXAM: 04/12/2023 COMPARISON: CT abdomen and pelvis from one day earlier HISTORY: Evaluate for retroperitoneal mass CONTRAST: Standard multiplanar, multisequence MRI departmental protocol images were obtained without contrast a nd with 12 mL intravenous Gadobutrol gadolinium contrast. FINDINGS: Posterior inferior to the right kidney there is redemonstration of oval area of predominant fat density measuring approximate 11.6 cm craniocaudal dimension by 10.6 cm transversely by 8.8 cm A P diameter axial image 17 series 801 and coronal image 27. This area has some vague linear areas of i ncreased T2 signal corresponding to subtle soft tissue or fluid on CT. Postcontrast images show some heterogeneous enhancement particularly on more delayed imaging. Local mass effect is redemonstrated. There is left basilar linear scarring and/or atelectasis redemonstrated. There are small intraluminal gallstones in the gallbladder on MRI less well seen on CT. The spleen and both adrenal glands are un remarkable. Both kidneys show cortical thinning with incidental exophytic 1.6 cm thin-walled cyst fro m the left kidney. No intra-abdominal ascites. Diverticula in the left colon are present. IMPRESSION: Large right retroperitoneal predominantly fat containing mass with local mass effect rede monstrated. It abuts the kidney but does not definitively originate from the kidney. Differential inc ludes a giant renal angiomyolipoma versus retroperitoneal etiology including atypical lipomatous tumo r and low-grade liposarcoma needs to be considered because of size. Advise specialist surgical referr al and follow-up..
[2023-04-12] MEDS: FAMOTIDINE 20 MG TAB PO SCH (20:51)
[2023-04-12] MEDS: SODIUM CHLORIDE 0.9% 1,000 ML IV SCH (20:59)
[2023-04-13] MEDS: ONDANSETRON 4 MG/2 ML VIAL IVP PRN (02:36)
[2023-04-13] MEDS: HYDROmorphone 1 MG/ML 1 ML SYRINGE IVP PRN ×5 (02:36→22:37)
[2023-04-13] MEDS: ACETAMINOPHEN TAB 325 MG TAB PO PRN ×2 (02:40→17:23)
[2023-04-13] MEDS: LEVOTHYROXINE 75 MCG TAB PO SCH (06:22)
--- NOTE | 2023-04-13 07:41 | P.PN ---
Subjective Progress Note Date: 04/13/23 The patient is in the hospital severe acute right abdominal pain. She was identified to have a 10 cm fat-containing retroperitoneal mass. An MRI was done last night firming the computed tomography scan but not adding any other information. Objective - Vital Signs Vital signs: Vital Signs Temp 98.8 F 04/13/23 06:23 Pulse 94 04/13/23 02:00 Resp 16 04/13/23 02:00 BP 102/65 04/13/23 02:00 Pulse Ox 93 L 04/13/23 02:00 FiO2 Intake & Output 04/12/23 04/13/23 04/13/23 18:59 06:59 18:59 Intake Total 540 Output Total 100 Balance 440 Intake: Oral 540 Output: Emesis 100 Other: Voiding Method Toilet # Voids 2 2 # Bowel Movements 1 - Labs CBC & Chem 7: 04/12/23 07:28 04/11/23 15:27 Labs: Abnormal Lab Results - Last 24 Hours (Table) 04/12/23 04/12/23 04/12/23 Range/Units 07:28 07:28 12:27 WBC 21.6 H (3.8-10.6) k/uL PT 12.8 H (10.0-12.5) sec INR 1.2 H (<1.2) Procalcitonin 0.21 H (0.02-0.09) ng/mL Assessment and Plan Assessment: Impression: 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 Concern for the latter. It does not appear to be connected to the kidney. It would be a very unusual angiomyolipoma. Recommendations: The patient needs to be treated at a tertiary Medical Center for this problem. It is unlikely that a biopsy will clarify whether this is malignant or not. He probably needs to be removed regardless. This has been discussed with the patient.
[2023-04-13] MEDS: LORATADINE 10 MG TAB PO SCH (08:35)
[2023-04-13] MEDS: CHOLECALCIFEROL 25 MCG (1000 IU) TABLET PO SCH (08:35)
[2023-04-13] MEDS: CYANOCOBALAMIN 500 MCG TAB PO SCH (08:35)
[2023-04-13] MEDS: FAMOTIDINE 20 MG TAB PO SCH ×2 (08:35→20:06)
[2023-04-13 11:08] LABS: HCT 39.2 % (37.2-46.3); HGB 12.8 g/dL (12.0-15.0); MCH 26.9 pg (27.0-32.0); MCHC 32.7 g/dL (32.0-37.0); MCV 82.4 FL (80.0-97.0); Mean Platelet Volume 10.9 FL (9.5-12.2); NRBC Per 100 WBC 0 X 10*3/uL (0.00-0.01); Platelet Count 244 X 10*3/uL (140-440); RBC 4.76 X 10*6/uL (4.10-5.20); RDW 14.7 % (11.5-14.5); WBC 26.92 X 10*3/uL (4.50-10.00)
[2023-04-13 11:35] LABS: BUN/Creat Ratio 19.78 Ratio (12.00-20.00); Blood Urea Nitrogen 17.8 mg/dL (9.0-27.0); Calcium 9.5 mg/dL (8.7-10.3); Carbon Dioxide 24.2 mmol/L (21.6-31.8); Chloride 99 mmol/L (96-109); Glucose 112 mg/dL (70-110); Potassium 3.7 mmol/L (3.5-5.5); Sodium 135 mmol/L (135-145)
[2023-04-13] MEDS: SODIUM CHLORIDE 0.9% 1,000 ML IV SCH (11:47)
[2023-04-13 12:01] LABS: Basophils # (A) 0.08 X 10*3/uL (0.00-0.10); Basophils % (A) 0.3 %; Eosinophils # (A) 0.01 X 10*3/uL (0.04-0.35); Eosinophils % (A) 0 %; Lymphocytes # (A) 0.89 X 10*3/uL (0.90-5.00); Lymphocytes % (A) 3.3 %; Monocytes # (A) 1.57 X 10*3/uL (0.20-1.00); Monocytes % (A) 5.8 %; Neutrophils # (A) 24.12 X 10*3/uL (1.80-7.70); Neutrophils % (A) 89.7 %; RBC Morphology Normal (Normal)
[2023-04-13] MEDS: LOSARTAN-HCTZ 50-12.5 MG 1 EACH TAB PO SCH (13:06)
[2023-04-13] MEDS: amLODIPine 5 MG TAB PO SCH (13:06)
[2023-04-13] MEDS ORDERED: MORPHINE CONC SOLN 10mg/0.5mL ORAL SYRG MISCELLANE PRN (13:07)
[2023-04-13] MEDS ORDERED: MORPHINE SULFATE ER 30 MG TABLET PO SCH (13:15)
--- NOTE | 2023-04-13 13:20 | P.PN ---
Subjective Progress Note Date: 04/13/23 Hospital Course: 52-year-old female with a PMH of hypertension and hypothyroidism who presents to the emergency room with complaints of right sided abdominal discomfort. In the emergency room a CT abdomen and pelvis revealed a large right-sided retroperitoneal fat containing mass with a differential including angiomyolipoma versus lipoma versus liposarcoma with mass effect upon the right renal collecting system without evidence for obstructive uropathy. There was also colonic diverticulosis with no other acute abnormalities. Laboratory evaluation revealed leukocytosis of 13.0, lactic acid 2.5, BUN 27, glucose 111, with 14 RBCs. Urology consulted. MRI abdomen shows large right retroperitoneal predominantly fat containing mass with local mass effect, could possibly be discharged renal angiomyolipoma versus atypical lipomatosis tumor and low-grade liposarcoma. Patient pending transfer. Subjective: Seen and examined at bedside. Was febrile overnight. Still having right-sided abdominal pain. Pertinent positives and negatives as discussed above, a complete review of systems was performed and all other systems are negative. Vitals Signs Reviewed. General: nontoxic, no distress, appears at stated age Derm: warm, dry Head: atraumatic, normocephalic, symmetric Eyes: EOMI, no lid lag, anicteric sclera Mouth: no lip lesion, mucus membranes moist Cardiovascular: S1S2 reg, no murmur Lungs: CTA bilateral, no rhonchi, no rales , no accessory muscle use Abdominal: soft, nontender to palpation, no guarding, no appreciable organomegaly Ext: no gross muscle atrophy, no edema, no contractures Neuro: CN II-XI grossly intact, no focal neuro deficits Psych: Alert, oriented, appropriate affect Data Reviewed Today: Pertinent Labs: wbc 26.92, creatinine 0.9, pro calcitonin 0.21 Imaging: MRI abdomen shows large right retroperitoneal predominantly fat containing mass with local mass effect, could possibly be discharged renal angiomyolipoma versus atypical lipomatosis tumor and low-grade liposarcoma. Assessment and Plan: Patient's status changed from obs to inpatient. Being transferred to [facility]. Pending bed availability. Large right sided retroperitoneal mass with mass effect Abdominal pain with intractable nausea and vomiting, likely secondary to above Sepsis of unclear etiology -Urology note reviewed, patient would benefit from transfer to tertiary care center -Medicated with pulmonology and oncology with regards to transfer -Pain management with Tylenol 650 every 6 hours as needed, IV Dilaudid 1 mg every 3 hours as needed, monitor for respiratory depression -Blood cultures ordered Result: Lactic acidosis Chronic conditions: Hypertension, hypothyroidism DVT ppx: SCDs Code status: Full code Anticipated discharge place: Pending clinical course Anticipated discharge time: Pending clinical course Objective - Vital Signs Vital signs: Vital Signs Temp 98.6 F 04/13/23 12:43 Pulse 79 04/13/23 12:43 Resp 17 04/13/23 12:43 BP 105/64 04/13/23 12:43 Pulse Ox 97 04/13/23 12:43 FiO2 Intake & Output 04/12/23 04/13/23 04/13/23 18:59 06:59 18:59 Intake Total 540 Output Total 100 Balance 440 Intake: Oral 540 Output: Emesis 100 Other: Voiding Method Toilet Toilet # Voids 2 2 # Bowel Movements 1 - Labs CBC & Chem 7: 04/13/23 07:04 04/13/23 07:04 Labs: Abnormal Lab Results - Last 24 Hours (Table) 04/12/23 04/13/23 04/13/23 Range/Units 07:28 07:04 07:04 WBC 26.92 H (4.50-10.00) X 10*3/uL MCH 26.9 L (27.0-32.0) pg RDW 14.7 H (11.5-14.5) % Immature Gran # 0.25 H (0.00-0.04) X 10*3/uL Neutrophils # 24.12 H (1.80-7.70) X 10*3/uL Lymphocytes # 0.89 L (0.90-5.00) X 10*3/uL Monocytes # 1.57 H (0.20-1.00) X 10*3/uL Eosinophils # 0.01 L (0.04-0.35) X 10*3/uL Glucose 112 H (70-110) mg/dL Procalcitonin 0.21 H (0.02-0.09) ng/mL
[2023-04-13 14:15] LABS: Color,Urine Brown
[2023-04-13 14:16] LABS: Appearance,Urine Slightly Cloudy (Clear)
[2023-04-13 14:18] LABS: Specific Gravity,Urine 1.025 (1.001-1.035)
[2023-04-13 14:19] LABS: Bilirubin,Urine 2+ (Negative); Blood,Urine Large (Negative); Glucose,Urine (UA) Negative (Negative); Ketones,Urine Trace (Negative); Leukocyte Esterase,Urine Small (Negative); Nitrite,Urine Positive (Negative); Protein,Urine 2+ (Negative); Urobilinogen,Urine 0.2 mg/dL (<2.0)
[2023-04-13 14:39] LABS: Bacteria,Urine Moderate /hpf; Budding Yeast,Urine Few /hpf; Mucus,Urine Moderate /hpf; RBC,Urine >182 /hpf (0-5); Squamous Epithelial Cell,Urine 3 /hpf (0-4); WBC,Urine 29 /hpf (0-5)
--- NOTE | 2023-04-13 16:53 | P.PN ---
Subjective Progress Note Date: 04/13/23 I am seeing this patient in new consultation today 04/12/2023 after she presented to emergency room yesterday afternoon complaining of severe right- sided abdominal pain. Patient is a 52-year-old white female with past medical history significant for hypertension and hypothyroidism. She does follow with Dr. Mckeon in the office for management of her primary care needs. Yesterday, after lunch, she began to experience sudden, severe 10 out of 10 nonradiating abdominal pain. She did have some associated nausea and nonbilious emesis, mostly food product. Denies any hematemesis, bloody bowel movements, constipation. Denies fever. Denies urinary complaints. CT of the abdomen and pelvis without contrast showed a large right retroperitoneal fat containing mass measuring 11.9 x 10.6 x 11.7 cm that abuts the right kidney. No obvious invasion or abdominal metastasis. Differential includes angiomyolipoma or lipoma versus liposarcoma. There is mass effect upon the right renal collecting system without evidence of obstructive uropathy. No other pathological abdominal findings noted. Denies any personal cancer history or familial history of kidney cancer. Denies any recent weight loss. Denies smoking history. Denies any hematuria or urinary complaints. CBC shows WBC count of 13, hemoglobin 14.4, hematocrit 43.6, platelets 168. BMP unremarkable. Lactate was 2.5 and is down to 1.3. LFTs not elevated. Pancreatic enzymes are not elevated. Patient is currently lying in bed, on room air, in no acute distress. She continues to have a moderate amount of abdominal pain especially with palpation. She is hemodynamically stable. On today's evaluation of 04/13/2023, the patient's condition is essentially unchanged. Continues to have abdominal pain. At the same time, she had some limited hematuria. She was also having episodes of fever throughout the night yesterday. Currently she is afebrile. The patient was echoes up to 26, hemoglobin is 12.8, sodium is at 135 with a potassium level of 3.7, BUN is at 17 with a creatinine of 0.9. UA was done and it showed heart rates 2 RBCs, 29 WBCs, few bacteria, +1 protein. The patient also had an MRI of the abdomen with contrast yesterday and the patient was found to have a large right retroperitoneal predominantly fat-containing mass with local mass effect having the right kidney. The mass is measuring 11 x 10 cm in size by 8 cm in size. There are some vague anemia and areas of increased T2 density with subtle soft tissue/fluid. Postcontrast images show some heterogeneous enhancement particularly on delayed images. Local mass effect was demonstrated. Obviously, there is a concern for malignancy. Possibilities include liposarcoma or atypical lipomatous tumor. We have opted to transfer this patient to [facility] for biopsy and surgical oncology evaluation. Oral intake is minimal and the patient is having very poor appetite. She was started on IV fluids. Objective - Vital Signs Vital signs: Vital Signs Temp 98.6 F 04/13/23 12:43 Pulse 79 04/13/23 12:43 Resp 17 04/13/23 12:43 BP 105/64 04/13/23 12:43 Pulse Ox 97 04/13/23 12:43 FiO2 Intake & Output 04/12/23 04/13/23 04/13/23 18:59 06:59 18:59 Intake Total 540 Output Total 100 Balance 440 Intake: Oral 540 Output: Emesis 100 Other: Voiding Method Toilet Toilet # Voids 2 2 # Bowel Movements 1 - Exam GENERAL EXAM: Alert, 52-year-old white female , comfortable in no apparent distress. HEAD: Normocephalic and atraumatic EYES: Normal reaction of pupils, equal size. NOSE: Clear with pink turbinates. THROAT: No erythema or exudates. NECK: No masses, no JVD. CHEST: No chest wall deformity. LUNGS: Equal air entry with no crackles, wheeze, rhonchi or dullness. On room air. No conversational dyspnea or accessory muscle use.. CVS: S1 and S2 normal with no audible murmur, regular rhythm. No extra heart sounds ABDOMEN: No hepatosplenomegaly, active bowel sounds. There is a palpable right sided mass with bimanual palpation. Facial grimacing and guarding. SPINE: No scoliosis or deformity SKIN: No rashes CENTRAL NERVOUS SYSTEM: No focal deficits, tone is normal in all 4 extremities. EXTREMITIES: There is no peripheral edema, clubbing, or cyanosis. Peripheral pulses are intact. - Labs CBC & Chem 7: 04/13/23 07:04 04/13/23 07:04 Labs: Abnormal Lab Results - Last 24 Hours (Table) 12/11/2704/13/23 04/13/23 Range/Units 07:04 07:04 14:09 WBC 26.92 H (4.50-10.00) X 10*3/uL MCH 26.9 L (27.0-32.0) pg RDW 14.7 H (11.5-14.5) % Immature Gran # 0.25 H (0.00-0.04) X 10*3/uL Neutrophils # 24.12 H (1.80-7.70) X 10*3/uL Lymphocytes # 0.89 L (0.90-5.00) X 10*3/uL Monocytes # 1.57 H (0.20-1.00) X 10*3/uL Eosinophils # 0.01 L (0.04-0.35) X 10*3/uL Glucose 112 H (70-110) mg/dL Urine Appearance Slightly Cloudy H (Clear) Urine Protein 2+ H (Negative) Urine Blood Large H (Negative) Urine Nitrite Positive H (Negative) Urine Bilirubin 2+ H (Negative) Ur Leukocyte Esterase Small H (Negative) Urine RBC >182 H (0-5) /hpf Urine WBC 29 H (0-5) /hpf Urine Bacteria Moderate H (None) /hpf Urine Mucus Moderate H (None) /hpf Urine Yeast (Budding) Few H (None) /hpf Assessment and Plan Assessment: Large right-sided fat-containing retroperitoneal mass measuring 11.9 x 10.6 x 11.7 cm that abuts the right kidney. No obvious evidence of invasion or metastasis within the abdomen per CT report. Differential includes angiomyolipoma, lipoma, versus liposarcoma. There is mass effect on the right renal collecting system without evidence of obstruction or hydronephrosis. The MRI of the abdomen confirmed the findings and there is a large 11 x 10 x 8 cm mass in the right retroperitoneum predominantly fat-containing mass with local mass effect. This is abutting the kidney. Possibilities include atypical lipomatous tumor versus low-grade liposarcoma. Abdominal pain, secondary to above Benign essential hypertension Hypothyroidism Morbid obesity, with a BMI of 40.3 kg/m Hematuria, likely secondary to above Fever Leukocytosis Plan: Start the patient on IV fluids normal saline at rate of 100 mL an hour Obtain urine and cultures Put the patient on IV Rocephin 2 g every 24 hours The patient is being arranged to be transferred to [facility] for a biopsy and the surgical oncology evaluation. Continue pain control with Dilaudid
--- NOTE | 2023-04-13 21:20 | P.CONS ---
History of Present Illness - Reason for Consult Consult date: 04/13/23 retropertineal mass Requesting physician: Charly Mckeon - Chief Complaint abdominal pain - History of Present Illness Patient is a 52-year-old female with a significant history of hypertension and hypothyroidism status post radioactive iodine treatment. Consult was placed for abnormal right-sided retroperitoneal mass noted on CT scan. Patient reports yesterday after lunch she began to experience a sudden onset severe right-sided abdomen lower abdominal pain with associated nausea and vomiting. At which time she presented to the emergency room for further evaluation. CT abdomen pelvis revealed large right-sided retroperitoneal fat-containing mass measuring 11.9 x 10.6 x 11.7 cm. With mass effect upon the right renal collecting system without evidence of obstructive uropathy. No evidence for acute abdominal process in the abdomen/pelvis otherwise. Abdominal MRI was subsequently obtained showing large right retroperitoneal peritoneal predominately fat containing mass measuring 11.6 x 10.6 x 8.8 cm with a local mass effect. CBC revealed leukocytosis with WBC 21.6, hemoglobin 14.2, platelets 271,000. LFTs and bilirubin WNL. LDH 198. UA suscipious for UTI, rocephin started. T max 101.1 At today's visit patient reports persisting abdominal pain but reports pain has moved to a right upper quadrant. Patient reports adequate pain control on cur rent pain med regimen. Patient denies any fever or chills prior to presentation. Denies night sweats. Reports she has had a 65 pound weight loss but was started on Wegovy. Weight loss has tapered off since December. Patient does report left-sided cervical lymphadenopathy over the last 2 to 3 weeks. Review of Systems 10 point ROS is negative except as stated in the HPI Past Medical History Past Medical History: Hypertension, Thyroid Disorder Additional Past Medical History / Comment(s): RECENT SUPERFICIAL VENOUS THROMBOSIS RLE-12/2020-ABLATION OF VARICOSE VEINS History of Any Multi-Drug Resistant Organisms: None Reported Past Surgical History: Breast Surgery, Heart Catheterization Additional Past Surgical History / Comment(s): radioactive iodine FOR THYROID, varicose vein surgery, I & D RIGHT BREAST FOR ABCESS, WISDOM TEETH REMOVED UNDER ANESTHESIA, CLEAR CARDIAC CATH 01/2021 Past Anesthesia/Blood Transfusion Reactions: No Reported Reaction Past Psychological History: No Psychological Hx Reported Smoking Status: Never smoker Past Alcohol Use History: None Reported Past Drug Use History: None Reported - Past Family History Father Family Medical History: Coronary Artery Disease (CAD), Diabetes Mellitus, Hypertension, Renal Disease Mother Family Medical History: Congestive Heart Failure (CHF), Coronary Artery Disease (CAD), Diabetes Mellitus, Hypertension, Sleep Apnea/CPAP/BIPAP, Thyroid Disorder Brother(s) Family Medical History: Coronary Artery Disease (CAD), Hypertension Medications and Allergies Home Medications Medication Instructions Recorded Confirmed Type Cetirizine HCl [Zyrtec] 10 mg PO DAILY 08/07/18 04/11/23 History amLODIPine [Norvasc] 5 mg PO DAILY 10/18/19 04/11/23 History Losartan/Hydrochlorothiazide 1 tab PO DAILY 10/23/19 04/11/23 History [Losartan-Hctz 100-25 mg Tab] Levothyroxine Sodium [Synthroid] 150 mcg PO DAILY 06/24/21 04/11/23 History Cholecalciferol [Vitamin D3 (25 50 mcg PO DAILY 04/11/23 04/11/23 History Mcg = 1000 Iu)] Cyanocobalamin (Vitamin B-12) 1,000 mcg PO DAILY 04/11/23 04/11/23 History [Vitamin B-12] Allergies Allergy/AdvReac Type Severity Reaction Status Date / Time metronidazole [From Flagyl] Allergy Nausea & Verified 04/11/23 19:10 Vomiting moxifloxacin [From Avelox] Allergy Diarrhea Verified 04/11/23 19:10 TYRESE Inhibitors AdvReac Cough Verified 04/11/23 19:10 doxycycline AdvReac Nausea & Verified 04/11/23 19:10 Vomiting Physical Exam Vitals: Vital Signs Temp Pulse Resp BP Pulse Ox 04/13/23 12:43 98.6 F 79 17 105/64 97 04/13/23 09:52 80 105/70 04/13/23 07:54 98.6 F 75 16 107/68 94 L 04/13/23 06:23 98.8 F 04/13/23 02:00 101.1 F H 94 16 102/65 93 L Intake and Output 04/13/23 04/13/23 04/13/23 06:59 14:59 22:59 Intake Total 1060 Balance 1060 Intake: Oral 1060 Other: Voiding Method Toilet # Voids 2 2 # Bowel Movements 1 - Constitutional General appearance: no acute distress, obese - EENT Eyes: anicteric sclerae, EOMI ENT: hearing grossly normal - Neck anterior cervical LAD palpated - Respiratory Respiratory: bilateral: CTA - Cardiovascular Rhythm: regular Heart sounds: normal: S1, S2 Abnormal Heart Sounds: no systolic murmur, no diastolic murmur, no rub, no S3 Gallop, no S4 Gallop, no click, no other - Gastrointestinal General gastrointestinal: normal bowel sounds, soft, tenderness Localized gastrointestinal: tender: RUQ - Integumentary Integumentary: no cyanotic, no jaundiced - Neurologic grossly intact - Musculoskeletal Musculoskeletal: strength equal bilaterally - Psychiatric Psychiatric: A&O x's 3 Results CBC & Chem 7: 04/13/23 07:04 04/13/23 07:04 Labs: Abnormal Lab Results - Last 24 Hours (Table) 04/13/23 04/13/23 04/13/23 Range/Units 07:04 07:04 14:09 WBC 26.92 H (4.50-10.00) X 10*3/uL MCH 26.9 L (27.0-32.0) pg RDW 14.7 H (11.5-14.5) % Immature Gran # 0.25 H (0.00-0.04) X 10*3/uL Neutrophils # 24.12 H (1.80-7.70) X 10*3/uL Lymphocytes # 0.89 L (0.90-5.00) X 10*3/uL Monocytes # 1.57 H (0.20-1.00) X 10*3/uL Eosinophils # 0.01 L (0.04-0.35) X 10*3/uL Glucose 112 H (70-110) mg/dL Urine Appearance Slightly Cloudy H (Clear) Urine Protein 2+ H (Negative) Urine Blood Large H (Negative) Urine Nitrite Positive H (Negative) Urine Bilirubin 2+ H (Negative) Ur Leukocyte Esterase Small H (Negative) Urine RBC >182 H (0-5) /hpf Urine WBC 29 H (0-5) /hpf Urine Bacteria Moderate H (None) /hpf Urine Mucus Moderate H (None) /hpf Urine Yeast (Budding) Few H (None) /hpf CT scan - abdomen: report reviewed CT scan - pelvis: report reviewed MRI - abdomen: report reviewed Assessment and Plan (1) Intractable abdominal pain Current Visit: Yes Status: Acute Priority: High Code(s): R10.9 - UNSPECIFIED ABDOMINAL PAIN SNOMED Code(s): 09876834 (2) Retroperitoneal mass Current Visit: Yes Status: Acute Priority: High Code(s): R19.00 - INTRA- ABD AND PELVIC SWELLING, MASS AND LUMP, UNSP SITE SNOMED Code(s): 74450540 Plan: Retroperitoneal mass: -Presented with sudden onset severe right-sided abdomen lower abdominal pain with associated nausea and vomiting. Patient denies any fever or chills prior to presentation. Denies night sweats. Reports she has had a 65 pound weight loss but was started on Wegovy. Weight loss has tapered off since December. Patient does report left-sided cervical lymphadenopathy over the last 2 to 3 weeks. -CT abdomen pelvis revealed large right-sided retroperitoneal fat-containing mass measuring 11.9 x 10.6 x 11.7 cm. With mass effect upon the right renal collecting system without evidence of obstructive uropathy. No evidence for acute abdominal process in the abdomen/pelvis otherwise. Abdominal MRI was subsequently obtained showing large right retroperitoneal peritoneal predominately fat containing mass measuring 11.6 x 10.6 x 8.8 cm with a local mass effect. -Findings and concerns for possible malignancy, with a liposarcoma vs lymphoma was discussed with patient in detail -CBC revealed leukocytosis with WBC 21.6. Lymphocytes 0.89. LDH 198. LFTs and bilirubin WNL -Spoke with Dr. Mckeon and IM team regarding case. Plan to transfer to [facility] for biopsy of retroperitoneal mass. Consult will be placed to our service and we will continue to follow and plan for outpt followup pending workup. UTI: -UA suscipious for UTI, rocephin started. T max 101.1 -Urine culture pending attests: I seen and examined patient, Performed H&P, developed impression and plan of care. Discussed with dictator. Agree with documentation, dictated as a scribe
[2023-04-13 22:03] VITALS: BP 91/66; PULSE 89; RESP 16; TEMP 99
--- NOTE | 2023-04-14 10:56 | P.DS ---
Providers Date of admission: 04/11/23 18:42 Expected date of discharge: 04/13/23 Attending physician: Erma Camarena DO Consults: 04/11/23 18:42 Consult Physician Routine Consulting Provider: Charly Mckeon Consult Reason/Comments: Your patient. Do you want consulting provider notified?: Already Contacted 04/11/23 18:58 Consult Physician Routine Consulting Provider: Valdez Rivera Consult Reason/Comments: large right renal mass Do you want consulting provider notified?: Yes 04/12/23 13:17 Consult Physician Routine Consulting Provider: Jennifer Leal Consult Reason/Comments: Retroperitoneal Mass Do you want consulting provider notified?: Yes [facility] Course: Patient transferred overnight to [facility]. Please see the progress note from 04/13/23. Patient Condition at Discharge: Stable Plan - Discharge Summary New Discharge Prescriptions: No Action Cetirizine HCl [Zyrtec] 10 mg PO DAILY amLODIPine [Norvasc] 5 mg PO DAILY Losartan/Hydrochlorothiazide [Losartan-Hctz 100-25 mg Tab] 1 tab PO DAILY Levothyroxine Sodium [Synthroid] 150 mcg PO DAILY Cholecalciferol [Vitamin D3 (25 Mcg = 1000 Iu)] 50 mcg PO DAILY Cyanocobalamin (Vitamin B-12) [Vitamin B-12] 1,000 mcg PO DAILY Discharge Medication List Cetirizine HCl [Zyrtec] 10 mg PO DAILY 08/07/18 [History] amLODIPine [Norvasc] 5 mg PO DAILY 10/18/19 [History] Losartan/Hydrochlorothiazide [Losartan-Hctz 100-25 mg Tab] 1 tab PO DAILY 10/23/19 [History] Levothyroxine Sodium [Synthroid] 150 mcg PO DAILY 06/24/21 [History] Cholecalciferol [Vitamin D3 (25 Mcg = 1000 Iu)] 50 mcg PO DAILY 04/11/23 [History] Cyanocobalamin (Vitamin B-12) [Vitamin B-12] 1,000 mcg PO DAILY 04/11/23 [History] Follow up Appointment(s)/Referral(s): Charly Mckeon MD [Primary Care Provider] - 1-2 days Discharge Disposition: DC/TRNS INTERMEDIATE CARE FAC
== END 2023-04-13 23:11 | DRG 872 ==
LOC: EC 15:06 → 5NMEDONC 18:42 → INTOOBSV 18:42 → OBSVTOIN 18:42 → 5NMEDONC 19:59
PROVIDERS: ADMIT Internal Medicine; ATTEND Internal Medicine
DX: A41.9 Sepsis, unspecified organism (principal); E87.20 Acidosis, unspecified; Z68.41 Body mass index [BMI] 40.0-44.9, adult; E66.01 Morbid (severe) obesity due to excess calories; I10 Essential (primary) hypertension; E03.9 Hypothyroidism, unspecified; Z79.890 Hormone replacement therapy; K57.30 Diverticulosis of large intestine without perforation or abscess without bleeding; E86.0 Dehydration; R31.29 Other microscopic hematuria; D17.71 Benign lipomatous neoplasm of kidney; D64.9 Anemia, unspecified; N28.89 Other specified disorders of kidney and ureter; Z79.899 Other long term (current) drug therapy; Z82.49 Family history of ischemic heart disease and other diseases of the circulatory system; Z88.8 Allergy status to other drugs, medicaments and biological substances
CPT/HCPCS: 36415; 74176; 74183; 80048; 80053; 81001; 81025; 82150; 83605; 83615; 83690; 84145; 85025; 85027; 85610; 87040; 87086; 96374; 96375; 99285

== ENCOUNTER → 2023-04-22 | Outpatient (CLI) | payer MEDICAID ==
[2023-04-22 10:54] LABS: Basophils # (A) 0.1 k/uL (0-0.2); Basophils % (A) 1 %; Eosinophils # (A) 0.2 k/uL (0-0.7); Eosinophils % (A) 1 %; HCT 37.9 % (34.0-46.0); HGB 12.4 gm/dL (11.4-16.0); Lymphocytes # (A) 2.2 k/uL (1.0-4.8); Lymphocytes % (A) 12 %; MCH 27.5 pg (25.0-35.0); MCHC 32.7 g/dL (31.0-37.0); MCV 83.9 fL (80.0-100.0); Mean Platelet Volume 8.2; Monocytes # (A) 0.6 k/uL (0-1.0); Monocytes % (A) 3 %; Neutrophils % (A) 82 %; Platelet Count 394 k/uL (150-450); RBC 4.52 m/uL (3.80-5.40); RDW 15.3 % (11.5-15.5); WBC 18.4 k/uL (3.8-10.6)
[2023-04-22 11:05] LABS: ALT 24 U/L (4-34); AST 28 U/L (14-36); African American GFR (CKD) 57 (>60 ml/min/1.73 sqM); Albumin/Globulin Ratio 0.8; Alkaline Phosphatase 114 U/L (38-126); Anion Gap 10 mmol/L; Blood Urea Nitrogen 18 mg/dL (7-17); Calcium 8.8 mg/dL (8.4-10.2); Carbon Dioxide 24 mmol/L (22-30); Chloride 105 mmol/L (98-107); Globulin 3.6 g/dL; Glucose 105 mg/dL (74-99); Non-African American GFR(CKD) 49 (>60 ml/min/1.73 sqM); Potassium 3.8 mmol/L (3.5-5.1); Sodium 139 mmol/L (137-145); Total Bilirubin 0.8 mg/dL (0.2-1.3); Total Protein 6.6 g/dL (6.3-8.2)
== END | disposition home or self-care (01) ==
LOC: LABWHC1 10:18
PROVIDERS: ATTEND Internal Medicine Critical Care Medicine
DX: E87.6 Hypokalemia (principal); D64.9 Anemia, unspecified; R53.1 Weakness
CPT/HCPCS: 36415; 80053; 85025

== ENCOUNTER → 2023-05-02 | Outpatient (CLI) | payer MEDICAID ==
[2023-05-02 18:39] LABS: HCT 40.3 % (37.2-46.3); HGB 12.6 g/dL (12.0-15.0); Lymphocytes # (A) 2.25 X 10*3/uL (0.90-5.00); Lymphocytes % (A) 22.8 %; MCH 26.4 pg (27.0-32.0); MCHC 31.3 g/dL (32.0-37.0); MCV 84.5 FL (80.0-97.0); Mean Platelet Volume 11.2 FL (9.5-12.2); Monocytes # (A) 0.67 X 10*3/uL (0.20-1.00); Monocytes % (A) 6.8 %; NRBC Per 100 WBC 0 X 10*3/uL (0.00-0.01); Neutrophils # (A) 6.73 X 10*3/uL (1.80-7.70); Platelet Count 431 X 10*3/uL (140-440); RBC 4.77 X 10*6/uL (4.10-5.20); RDW 15.8 % (11.5-14.5); WBC 9.89 X 10*3/uL (4.50-10.00)
[2023-05-02 19:32] LABS: ALT 10 U/L (8-44); AST 14 U/L (13-35); Albumin 3.7 g/dL (3.8-4.9); Albumin/Globulin Ratio 0.97 Ratio (1.60-3.17); Alkaline Phosphatase 95 U/L (41-126); Blood Urea Nitrogen 26.1 mg/dL (9.0-27.0); Carbon Dioxide 26.5 mmol/L (21.6-31.8); Chloride 101 mmol/L (96-109); Globulin 3.8 g/dL (1.6-3.3); Glucose 100 mg/dL (70-110); Potassium 3.4 mmol/L (3.5-5.5); Sodium 140 mmol/L (135-145); Total Bilirubin 0.5 mg/dL (0.3-1.2); Total Protein 7.5 g/dL (6.2-8.2)
== END | disposition home or self-care (01) ==
LOC: LABWHC1 12:37
PROVIDERS: ATTEND Internal Medicine Critical Care Medicine
DX: K81.0 Acute cholecystitis (principal)
CPT/HCPCS: 36415; 80053; 85025

== ENCOUNTER → 2023-05-03 | Outpatient (CLI) | payer MEDICAID ==
--- NOTE | 2023-05-03 12:26 | US ---
EXAMINATION TYPE: US kidneys/renal and bladder DATE OF EXAM: 05/03/2023 COMPARISON: MR 04/12/2023. CLINICAL INDICATION: Female, 52 years old with history of R79.9 ABNORMAL FINDING OF BLOOD CHEMISTRY, UNSPECI; Elevated creatinine and BUN; Patient had GB removed 2 weeks ago. EXAM MEASUREMENTS: Right Kidney: 11.9 x 4.8 x 5.5 cm Left Kidney: 12.8 x 5.7 x 5.2 cm Post Void Residual Volume: 6 mL Right Kidney: wnl , no hydronephrosis or mass. Left Kidney: Cyst-like area measuring 1.7 x 1.5 x 1.8 cm, no hydronephrosis or mass. Bladder: Anechoic Bilateral Jets seen: Right only Normal Post Void Residual: Yes There is no evidence for hydronephrosis at this point in time. No nephrolithiasis is seen. No tamela s are identified. The urinary bladder is anechoic. Bilateral ureteral jets are seen. Incidental finding : (patient had gallbladder removed 2 weeks ago) - At the gallbladder fossa, the re is an anechoic area with internal debris noted measuring 3.2 x 3.8 x 3.5 cm IMPRESSION: 1. No evidence for acute process. Cortical medullary differentiation is maintained. 2. Simple appearing left renal cyst. 3. Gallbladder fossa cystic duct remnant versus seroma. 4. Large right retroperitoneal mass not well appreciated on ultrasound.
== END | disposition home or self-care (01) ==
LOC: RADUSWWP 10:23
PROVIDERS: ATTEND Internal Medicine Critical Care Medicine
DX: N28.1 Cyst of kidney, acquired (principal); N17.9 Acute kidney failure, unspecified; R19.09 Other intra-abdominal and pelvic swelling, mass and lump; R79.9 Abnormal finding of blood chemistry, unspecified; Z90.49 Acquired absence of other specified parts of digestive tract
CPT/HCPCS: 76770

== ENCOUNTER → 2023-05-05 | Outpatient (CLI) | payer MEDICAID ==
[2023-05-05 12:10] LABS: ALT 14 U/L (4-34); AST 18 U/L (14-36); African American GFR (CKD) 41 (>60 ml/min/1.73 sqM); Albumin 3.8 g/dL (3.5-5.0); Alkaline Phosphatase 106 U/L (38-126); Anion Gap 12 mmol/L; Blood Urea Nitrogen 26 mg/dL (7-17); Calcium 9.8 mg/dL (8.4-10.2); Carbon Dioxide 27 mmol/L (22-30); Chloride 100 mmol/L (98-107); Globulin 3.8 g/dL; Glucose 109 mg/dL (74-99); Non-African American GFR(CKD) 36 (>60 ml/min/1.73 sqM); Potassium 3.8 mmol/L (3.5-5.1); Sodium 139 mmol/L (137-145); Total Bilirubin 0.7 mg/dL (0.2-1.3); Total Protein 7.6 g/dL (6.3-8.2)
== END | disposition home or self-care (01) ==
LOC: LABWHC1 10:44
PROVIDERS: ATTEND Internal Medicine Critical Care Medicine
DX: N17.9 Acute kidney failure, unspecified (principal)
CPT/HCPCS: 36415; 80053

== ENCOUNTER → 2023-05-09 | Outpatient (CLI) | payer MEDICAID ==
[2023-05-09 15:28] LABS: ALT 17 U/L (8-44); AST 18 U/L (13-35); Albumin 4.1 g/dL (3.8-4.9); Albumin/Globulin Ratio 1.05 Ratio (1.60-3.17); Alkaline Phosphatase 124 U/L (41-126); BUN/Creat Ratio 17.27 Ratio (12.00-20.00); Blood Urea Nitrogen 25.9 mg/dL (9.0-27.0); Calcium 10.5 mg/dL (8.7-10.3); Carbon Dioxide 26.7 mmol/L (21.6-31.8); Chloride 96 mmol/L (96-109); Globulin 3.9 g/dL (1.6-3.3); Glucose 128 mg/dL (70-110); Potassium 3.6 mmol/L (3.5-5.5); Sodium 137 mmol/L (135-145); Total Bilirubin 0.6 mg/dL (0.3-1.2)
== END | disposition home or self-care (01) ==
LOC: LABWHC1 09:41
PROVIDERS: ATTEND Internal Medicine Critical Care Medicine
DX: N17.9 Acute kidney failure, unspecified (principal)
CPT/HCPCS: 36415; 80053

== ENCOUNTER → 2023-05-17 | Outpatient (CLI) | payer MEDICAID ==
[2023-05-17 12:44] LABS: Basophils # (A) 0.1 k/uL (0-0.2); Basophils % (A) 1 %; Eosinophils # (A) 0.1 k/uL (0-0.7); Eosinophils % (A) 1 %; HCT 37.3 % (34.0-46.0); HGB 12.4 gm/dL (11.4-16.0); Lymphocytes # (A) 2.3 k/uL (1.0-4.8); Lymphocytes % (A) 24 %; MCH 27.7 pg (25.0-35.0); MCHC 33.2 g/dL (31.0-37.0); MCV 83.4 fL (80.0-100.0); Monocytes # (A) 0.5 k/uL (0-1.0); Monocytes % (A) 5 %; Neutrophils # (A) 6.7 k/uL (1.3-7.7); Neutrophils % (A) 69 %; Platelet Count 216 k/uL (150-450); RBC 4.47 m/uL (3.80-5.40); RDW 15.1 % (11.5-15.5); WBC 9.8 k/uL (3.8-10.6)
[2023-05-17 13:01] LABS: Partial Thromboplastin Time 25.7 sec (22.0-30.0); Prothrombin Time 10.6 sec (10.0-12.5)
[2023-05-17 13:06] LABS: ALT 14 U/L (4-34); AST 19 U/L (14-36); African American GFR (CKD) 56 (>60 ml/min/1.73 sqM); Albumin 3.8 g/dL (3.5-5.0); Alkaline Phosphatase 122 U/L (38-126); Anion Gap 12 mmol/L; Blood Urea Nitrogen 30 mg/dL (7-17); Calcium 9.5 mg/dL (8.4-10.2); Carbon Dioxide 24 mmol/L (22-30); Chloride 100 mmol/L (98-107); Globulin 3.9 g/dL; Glucose 101 mg/dL (74-99); Non-African American GFR(CKD) 48 (>60 ml/min/1.73 sqM); Potassium 3.7 mmol/L (3.5-5.1); Sodium 136 mmol/L (137-145); Total Bilirubin 0.7 mg/dL (0.2-1.3); Total Protein 7.7 g/dL (6.3-8.2)
[2023-05-17 21:08] LABS: Appearance,Urine Clear (Clear); Bilirubin,Urine Negative (Negative); Blood,Urine Moderate (Negative); Color,Urine Yellow (Yellow); Ketones,Urine Negative (Negative); Nitrite,Urine Negative (Negative); PH, Urine 5.5; Specific Gravity,Urine 1.015 (1.001-1.030); Urobilinogen,Urine 0.2 E.U./DL
[2023-05-17 21:35] LABS: Bacteria,Urine None Seen (None Seen)
== END | disposition home or self-care (01) ==
LOC: LABWHC1 11:54
PROVIDERS: ATTEND Internal Medicine Critical Care Medicine
DX: Z01.812 Encounter for preprocedural laboratory examination (principal); N17.9 Acute kidney failure, unspecified; N39.0 Urinary tract infection, site not specified
CPT/HCPCS: 36415; 80053; 81001; 85025; 85610; 85730; 87086

== ENCOUNTER → 2023-06-16 | Outpatient (CLI) | payer MEDICAID ==
[2023-06-16 08:06] LABS: ALT 11 U/L (4-34); AST 18 U/L (14-36); African American GFR (CKD) 65 (>60 ml/min/1.73 sqM); Albumin 3.9 g/dL (3.5-5.0); Albumin/Globulin Ratio 1.1; Alkaline Phosphatase 107 U/L (38-126); Anion Gap 8 mmol/L; Blood Urea Nitrogen 25 mg/dL (7-17); Calcium 9.8 mg/dL (8.4-10.2); Carbon Dioxide 27 mmol/L (22-30); Chloride 105 mmol/L (98-107); Globulin 3.6 g/dL; Glucose 106 mg/dL (74-99); Non-African American GFR(CKD) 57 (>60 ml/min/1.73 sqM); Potassium 3.9 mmol/L (3.5-5.1); Sodium 140 mmol/L (137-145); Total Bilirubin 0.8 mg/dL (0.2-1.3); Total Protein 7.5 g/dL (6.3-8.2)
== END | disposition home or self-care (01) ==
LOC: LABWHC1 07:16
PROVIDERS: ATTEND Internal Medicine Critical Care Medicine
DX: N17.9 Acute kidney failure, unspecified (principal)
CPT/HCPCS: 36415; 80053; 87086

== ENCOUNTER → 2023-06-22 | Outpatient (CLI) | payer MEDICAID ==
--- NOTE | 2023-06-22 22:20 | MM ---
Reason for Exam: Screening (asymptomatic). Last screening mammogram was performed 12 month(s) ago. Patient History: Menarche at age 16. Patient has no children. Patient used Hormonal Contraceptives for 4 years. 10/18/2019, Benign Cyst Aspiration on the right side. Risk Values: Chante 5 year model risk: 1.0%. NCI Lifetime model risk: 9.1%. Prior Study Comparison: 06/15/2020 Bilateral Screening Mammogram, [facility]. 06/17/2021 Bilateral Screening Mammogram, [facility]. 06/20/2022 Bilateral MG 3D screening mammo w/cad, [facility]. Tissue Density: The breast tissue is heterogeneously dense. This may lower the sensitivity of mammography. Findings: Analyzed By CAD. Unchanged global asymmetry left upper outer quadrant. Other areas of asymmetric density also remain unchanged. There is no suspicious group of microcalcifications or new suspicious mass in either breast. Overall Assessment: Benign, BI-RAD 2 Management: Screening Mammogram of both breasts in 1 year. . Patient should continue monthly self-breast exams. A clinical breast exam by your physician is recommended on an annual basis. This exam should not preclude additional follow-up of suspicious palpable abnormalities. Note on Chante scores and lifetime risk: 1. A Chante score greater than 3% is considered moderate risk. If this is the case, consider specialist referral to assess eligibility for a risk reducing agent. 2. If overall lifetime risk for the development of breast cancer is 20% or higher, the patient may qualify for future screening with alternating mammogram and breast MRI. Electronically signed and approved by: Justa Antonio M.D. Radiologist
== END | disposition home or self-care (01) ==
LOC: RADMAMWWP 07:16
PROVIDERS: ATTEND Internal Medicine Critical Care Medicine
DX: Z12.31 Encounter for screening mammogram for malignant neoplasm of breast (principal)
CPT/HCPCS: 77063; 77067

== ENCOUNTER → 2023-08-09 | Outpatient (CLI) | payer MEDICAID ==
--- NOTE | 2023-08-11 11:10 | CT ---
EXAMINATION TYPE: CT abdomen pelvis w con CT DLP: 2764.3 mGycm, Automated exposure control for dose reduction was used. DATE OF EXAM: 08/09/2023 6:48 PM COMPARISON: CT abdomen and pelvis without contrast 04/11/2023, MR abdomen without/with contrast 023 CLINICAL INDICATION:Female, 53 years old with history of R19.00 INTRA AB SWELLING; f/u mass TECHNIQUE: CT of the abdomen and pelvis was performed with IV and oral contrast. Delayed imaging through the abd omen was also performed. Multiplanar reformats generated. Contrast used:100 mL of Isovue 300 with IV Contrast, (none if empty) Oral contrast used: with Oral Contrast (none if empty) FINDINGS: LOWER CHEST: Lung bases are clear. No significant nodules, infiltrate, pleural or pericardial effusio n. Heart size is normal with mildly prominent pericardial fat. ABDOMEN LIVER: Unremarkable GALLBLADDER AND BILE DUCTS: Status post cholecystectomy without pathologic dilatation of the biliary tree. No abnormal fluid collections evident. PANCREAS: Unremarkable. SPLEEN: Unremarkable. ADRENAL GLANDS: Unremarkable. KIDNEYS AND URETERS: Kidneys enhance symmetrically. Stable small 1.7 cm left renal nodule again seen compatible with previously characterized cyst. A couple of additional tiny hypodensities towards the upper pole, probably also cysts. No visible renal calculi. Mildly prominent right extrarenal pelvis w ithout dilated ureter seen. Right ureter is deflected around the mass without evidence of compression /obstruction. PELVIS BLADDER: Unremarkable REPRODUCTIVE: Uterus and ovaries are unremarkable by CT. No evidence of pelvic mass. ABDOMEN & PELVIS STOMACH AND BOWEL: Stomach and small bowel are nondistended, no evidence of obstruction. Small duoden al diverticulum near its proximal transverse segment. The appendix appears within normal limits. T here is some stool and gas seen throughout the colon with no focal acute abnormality shown. Several diverticula of the descending and sigmoid region without evidence of diverticulitis. PERITONEUM/RETROPERITONEUM: No evidence of pneumoperitoneum or free fluid. Redemonstration of a large retroperitoneal mass located just inferior to the right kidney and abuttin g its inferior pole. This appears slightly heterogeneous, the great majority is of fatty attenuation but there are wispy areas of increased attenuation within which appear similar to previous. Exact kenan surements are difficult due to ill-defined borders of this mass with adjacent normal fatty tissue, bu t measured in a similar fashion as on the prior CT this is about 11.7 x 11 cm axially and 12 cm crani ocaudally; not significantly changed. Morphology is also stable. This again displaces the right kidne y superiorly. No definite claw sign at the interface of the kidney with the mass, making a renal orig in (such as AML) less likely. VASCULATURE: Aorta and major branches are grossly unremarkable. No AAA. Small vessels can again be seen coursing along the margins of the mass. Portal veins and splenic vein and SMV are enhancing. LYMPH NODES: No enlarged nodes by CT criteria. There are a few small nodular densities along the infe rior aspect of the mass, the largest about 9 mm, nonspecific but appear stable. SOFT TISSUE/ABDOMINAL WALL: Unremarkable MUSCULOSKELETAL: No acute osseous abnormalities. Mild disc degeneration changes are present throughou t the thoracolumbar spine. IMPRESSION: 1. Stable large right retroperitoneal mass inferior to the kidney, almost entirely of fatty attenuat ion but there are some areas of wispy increased attenuation within. Retroperitoneal low-grade liposar coma versus lipoma are primary considerations. 2. If not already performed, recommend CT guided needle biopsy for tissue diagnosis, and consultatio n with a surgical oncologist. 3. Otherwise stable exam.
== END | disposition home or self-care (01) ==
LOC: RADCTMAIN 17:08
PROVIDERS: ATTEND Surgery Surgical Oncology
DX: R19.00 Intra-abdominal and pelvic swelling, mass and lump, unspecified site (principal)
CPT/HCPCS: 74177; Q9967

== ENCOUNTER → 2023-08-24 | Outpatient (CLI) | payer MEDICAID ==
[2023-08-24 08:30] LABS: Appearance,Urine Clear (Clear); Bilirubin,Urine Negative (Negative); Blood,Urine Small (Negative); Color,Urine Light Yellow; Glucose,Urine (UA) Negative (Negative); Ketones,Urine Negative (Negative); Leukocyte Esterase,Urine Negative (Negative); Mucus,Urine Occasional /hpf; Nitrite,Urine Negative (Negative); PH, Urine 5.5 (5.0-8.0); Protein,Urine Negative (Negative); RBC,Urine 3 /hpf (0-5); Specific Gravity,Urine 1.023 (1.001-1.035); Squamous Epithelial Cell,Urine 9 /hpf (0-4); Urobilinogen,Urine <2.0 mg/dL (<2.0); WBC,Urine 1 /hpf (0-5)
[2023-08-24 08:51] LABS: Basophils # (A) 0.1 k/uL (0-0.2); Basophils % (A) 1 %; Eosinophils # (A) 0.1 k/uL (0-0.7); Eosinophils % (A) 1 %; HCT 40.8 % (34.0-46.0); HGB 13.1 gm/dL (11.4-16.0); Lymphocytes # (A) 1.9 k/uL (1.0-4.8); Lymphocytes % (A) 24 %; MCH 28.1 pg (25.0-35.0); MCV 87.7 fL (80.0-100.0); Mean Platelet Volume 7.9; Monocytes # (A) 0.5 k/uL (0-1.0); Monocytes % (A) 6 %; Neutrophils # (A) 5.4 k/uL (1.3-7.7); Neutrophils % (A) 66 %; Platelet Count 254 k/uL (150-450); RBC 4.65 m/uL (3.80-5.40); RDW 13.7 % (11.5-15.5); WBC 8.1 k/uL (3.8-10.6)
[2023-08-24 09:43] LABS: ALT 11 U/L (4-34); AST 15 U/L (14-36); African American GFR (CKD) 81 (>60 ml/min/1.73 sqM); Albumin 3.9 g/dL (3.5-5.0); Albumin/Globulin Ratio 1.1; Alkaline Phosphatase 117 U/L (38-126); Anion Gap 6 mmol/L; Blood Urea Nitrogen 24 mg/dL (7-17); Calcium 9.8 mg/dL (8.4-10.2); Carbon Dioxide 30 mmol/L (22-30); Chloride 104 mmol/L (98-107); Globulin 3.5 g/dL; Glucose 93 mg/dL (74-99); Non-African American GFR(CKD) 70 (>60 ml/min/1.73 sqM); Potassium 4.2 mmol/L (3.5-5.1); Sodium 140 mmol/L (137-145); Total Bilirubin 0.6 mg/dL (0.2-1.3); Total Protein 7.4 g/dL (6.3-8.2)
[2023-08-24 10:01] LABS: T4, Free (Free Thyroxine) 1.67 ng/dL (0.78-2.19)
== END | disposition home or self-care (01) ==
LOC: LABWHC1 07:33
PROVIDERS: ATTEND Internal Medicine Critical Care Medicine
DX: Z00.00 Encounter for general adult medical examination without abnormal findings (principal); N17.9 Acute kidney failure, unspecified; R53.83 Other fatigue; E03.9 Hypothyroidism, unspecified
CPT/HCPCS: 36415; 80053; 81001; 82306; 82533; 84439; 84443; 85025

== ENCOUNTER → 2023-11-16 | Outpatient (CLI) | payer MEDICAID ==
[2023-11-16 12:44] LABS: ALT 10 U/L (4-34); AST 16 U/L (14-36); African American GFR (CKD) 84 (>60 ml/min/1.73 sqM); Albumin 4.2 g/dL (3.5-5.0); Albumin/Globulin Ratio 1.3; Alkaline Phosphatase 112 U/L (38-126); Anion Gap 8 mmol/L; Blood Urea Nitrogen 26 mg/dL (7-17); Calcium 9.5 mg/dL (8.4-10.2); Carbon Dioxide 26 mmol/L (22-30); Chloride 103 mmol/L (98-107); Globulin 3.3 g/dL; Glucose 90 mg/dL (74-99); Non-African American GFR(CKD) 73 (>60 ml/min/1.73 sqM); Potassium 3.4 mmol/L (3.5-5.1); Sodium 137 mmol/L (137-145); Total Bilirubin 0.8 mg/dL (0.2-1.3); Total Protein 7.5 g/dL (6.3-8.2)
[2023-11-16 14:31] LABS: Appearance,Urine Clear (Clear); Bilirubin,Urine Negative (Negative); Blood,Urine Negative (Negative); Color,Urine Light Yellow; Glucose,Urine (UA) Negative (Negative); Ketones,Urine Negative (Negative); Leukocyte Esterase,Urine Negative (Negative); Nitrite,Urine Negative (Negative); PH, Urine 5.5 (5.0-8.0); Protein,Urine Negative (Negative); Specific Gravity,Urine 1.022 (1.001-1.035); Urobilinogen,Urine <2.0 mg/dL (<2.0)
== END | disposition home or self-care (01) ==
LOC: LABWHC1 11:58
PROVIDERS: ATTEND Internal Medicine Critical Care Medicine
DX: N17.9 Acute kidney failure, unspecified (principal)
CPT/HCPCS: 36415; 80053; 81003; 87086

== ENCOUNTER 2023-12-15 11:30 | Day surgery (SDC) | payer MEDICAID ==
[~2023-12-15 11:30] MED LIST changes: -ALPRAZolam 0.25 MG TAB PO PRN; -ALPRAZolam 0.5 MG TAB PO PRN; -ASPIRIN 325 MG TAB PO ONE; -HEPARIN SODIUM,PORCINE 10,000 UNIT in SODIUM CHLORIDE 0.9% 1,000 ML IRRIGATION PRN; -HEPARIN SODIUM,PORCINE 2,500 UNIT in SODIUM CHLORIDE 0.9% 250 ML IRRIGATION PRN; +LACTATED RINGERS 1,000 ML BAG ONE; +LIDOCAINE 1% INJ 10MG/ML (20 ML MDV) ONE; -NITROGLYCERIN SL TABS 0.4 MG TAB SUBLINGUAL PRN; +PROPOFOL 10 MG/ML 20 ML VIAL IV ONE; -SODIUM CHLORIDE 0.9% 1,000 ML in EMPTY BAG 1 BAG IV ONE
--- NOTE | 2024-01-05 17:16 | P.PCN ---
Date of Procedure: 12/15/23 Procedure(s) Performed: This an addendum to the procedure was performed on 12/15/2023. Procedure performed colonoscopy with snare polypectomy Procedure: The scope was advanced into the cecum. Careful examination was performed as the scope was gradually being withdrawn. There was a large 4 cm mid rectal fl at/broad-based polyp noted which was removed by piecemeal snare polypectomy followed by 3 Endo Clip placement to prevent post polypectomy bleeding. Patient tolerated the procedure well.
== END 2023-12-15 12:10 ==
LOC: ORWHC2ENDO 11:30
PROVIDERS: ATTEND Internal Medicine Gastroenterology
DX: Z12.11 Encounter for screening for malignant neoplasm of colon (principal); D12.8 Benign neoplasm of rectum; I10 Essential (primary) hypertension; I25.10 Atherosclerotic heart disease of native coronary artery without angina pectoris; E03.9 Hypothyroidism, unspecified; K21.9 Gastro-esophageal reflux disease without esophagitis; Z79.899 Other long term (current) drug therapy; Z79.890 Hormone replacement therapy
CPT/HCPCS: 45385; 88305

== ENCOUNTER → 2024-01-29 | Outpatient (CLI) | payer MEDICAID ==
--- NOTE | 2024-02-02 15:43 | CT ---
EXAMINATION TYPE: CT abdomen pelvis w con DATE OF EXAM: 01/29/2024 COMPARISON: 08/09/2023 HISTORY: abdominal mass CT DLP: 4343 mGycm Automated exposure control for dose reduction was used. TECHNIQUE: Helical acquisition of images was performed from the lung bases through the pelvis. CONTRAST: Performed with Oral Contrast and with IV Contrast, patient injected with 100 mL of Isovue 300. FINDINGS: The lung bases are clear. There is surgical absence of the gallbladder. There is no biliary ductal dilatation. There is no focal mass or organomegaly involving the liver, pancreas, spleen or adrenal glands. There is no solid renal mass or hydronephrosis and there is homogeneous contrast enhancement of the r enal parenchyma. Surrounding the right kidney there is a large 13.3 x 12.2 cm mass with predominantly fatty density ho wever there is hazy enhancement within the mass and ill definition of the margin posteriorly. Finding s are suspicious for liposarcoma and MRI of the abdomen is recommended for further evaluation. The caliber the abdominal aorta is normal is no retroperitoneal adenopathy or hemorrhage. The bowel loops are normal in caliber and there is no evidence of dilatation or obstruction. No infla mmatory changes are identified in the bowel wall or mesentery. There is no free intraperitoneal air or fluid. No pelvic mass, free fluid, abscess or adenopathy. The osseous structures and soft tissues are intact. IMPRESSION: Large 13.3 x 12.2 cm predominantly fat-containing retroperitoneal mass on the right with possible haz y vague contrast enhancement raising concern for a liposarcoma. MRI is recommended for further evalua tion. [facility], Workstation: HARSH 02/02/2024 3:41 PM
== END | disposition home or self-care (01) ==
LOC: RADCTMAIN 16:45
PROVIDERS: ATTEND Internal Medicine Critical Care Medicine
DX: R19.09 Other intra-abdominal and pelvic swelling, mass and lump
CPT/HCPCS: 74177

== ENCOUNTER → 2024-02-27 | Outpatient (CLI) | payer MEDICAID ==
--- NOTE | 2024-02-29 05:22 | MR ---
EXAMINATION TYPE: MR shoulder RT wo con DATE OF EXAM: 02/27/2024 COMPARISON: Outside right shoulder x-ray February 21, 2024 HISTORY: Right shoulder pain x10 days with difficulty raising arm overhead TECHNIQUE: Multiplanar, multisequence imaging of the right shoulder is performed without contrast. FINDINGS: Rotator Cuff: There is mild increased signal in the infraspinatus tendon. More prominent increased si gnal in the supraspinatus tendon. Focal articular surface tear involving the anterior fibers sagittal image 7 measuring 5 mm AP diameter by 4 mm transversely coronal image 14. Heterogeneous subscapulari s tendon. Rotator cuff muscle bulk is preserved. Acromioclavicular Joint: Moderate to severe narrowing and capsular hypertrophy there is moderate spu rring. Underlying Fat planes however is maintained. Glenohumeral Joint: Small size joint effusion. Narrowing is seen. No significant spurring. Labrum: The labrum appears grossly intact given limitation of non-arthrogram study. Biceps Tendon: The long head of biceps is in normal location within bicipital groove. Bone marrow signal: Heterogeneous increased T2 signal through the anterior aspect of the humeral head extending into the proximal metaphysis. Subchondral cystic change at the acromioclavicular joint. Other: Increased fluid signal subdeltoid/subacromial bursa. IMPRESSION: 1. Some tendinosis of the infraspinatus and subscapularis tendons. More prominent tendinosis and part ial tearing of the supraspinatus tendon. 2. Abnormal bone marrow edema in the anterior aspect of the humeral head extending into the proximal metaphysis. 3. No labral tear. 4. Moderate subdeltoid/subacromial bursitis. 5. Moderate to severe AC joint arthropathy. [facility], , 02/29/2024 5:20 AM
== END | disposition home or self-care (01) ==
LOC: RADMRIMAIN 20:15
PROVIDERS: ATTEND Orthopaedic Surgery

== ENCOUNTER → 2024-04-27 | Outpatient (CLI) | payer MEDICAID ==
[2024-04-27 12:51] LABS: Basophils # (A) 0.07 X 10*3/uL (0.00-0.10); Basophils % (A) 0.9 %; Eosinophils # (A) 0.15 X 10*3/uL (0.04-0.35); Eosinophils % (A) 1.8 %; HGB 12.7 g/dL (12.0-15.0); Lymphocytes # (A) 2.06 X 10*3/uL (0.90-5.00); Lymphocytes % (A) 25.2 %; MCH 26.8 pg (27.0-32.0); MCHC 31.8 g/dL (32.0-37.0); MCV 84.6 FL (80.0-97.0); Mean Platelet Volume 10.5 FL (9.5-12.2); Monocytes # (A) 0.49 X 10*3/uL (0.20-1.00); NRBC Per 100 WBC 0 X 10*3/uL (0.00-0.01); Neutrophils # (A) 5.34 X 10*3/uL (1.80-7.70); Neutrophils % (A) 65.5 %; Platelet Count 265 X 10*3/uL (140-440); RBC 4.73 X 10*6/uL (4.10-5.20); RDW 14.9 % (11.5-14.5); WBC 8.16 X 10*3/uL (4.50-10.00)
[2024-04-27 13:50] LABS: ALT 14 U/L (8-44); AST 16 U/L (13-35); Albumin/Globulin Ratio 1.25 Ratio (1.60-3.17); Alkaline Phosphatase 105 U/L (41-126); Blood Urea Nitrogen 24.2 mg/dL (9.0-27.0); Calcium 9.8 mg/dL (8.7-10.3); Carbon Dioxide 25.8 mmol/L (21.6-31.8); Chloride 103 mmol/L (96-109); Chol/HDL Ratio 3.74 Ratio; Globulin 3.2 g/dL (1.6-3.3); Glucose 98 mg/dL (70-110); LDL Cholesterol,Calculated 99.2 mg/dL (0.0-131.0); Potassium 3.7 mmol/L (3.5-5.5); Sodium 140 mmol/L (135-145); T4, Free (Free Thyroxine) 1.38 ng/dL (0.80-1.80); Total Bilirubin 0.5 mg/dL (0.3-1.2); Total Protein 7.2 g/dL (6.2-8.2); VLDL Calculation 19.48 mg/dL (5.00-40.00)
== END | disposition home or self-care (01) ==
LOC: LABWHC1 09:20
PROVIDERS: ATTEND Internal Medicine Critical Care Medicine
DX: Z00.00 Encounter for general adult medical examination without abnormal findings (principal); I10 Essential (primary) hypertension; E03.9 Hypothyroidism, unspecified; E55.9 Vitamin D deficiency, unspecified
CPT/HCPCS: 36415; 80053; 80061; 82306; 83036; 84439; 84443; 85025

== ENCOUNTER → 2024-07-29 | Outpatient (CLI) | payer MEDICAID ==
--- NOTE | 2024-07-29 19:09 | CT ---
EXAMINATION TYPE: CT abdomen pelvis w con DATE OF EXAM: 07/29/2024 6:44 PM COMPARISON: 01/28/2024 CLINICAL INDICATION: Female, 53 years old with history of R19.00 ABD AND PELV SWELL MASS LUMP; F/u fo r abdominal mass. TECHNIQUE: Axial CT abdomen pelvis w con;Sagittal and coronal reformats were created on a separate w orkstation. Contrast used:100ml mL of Isovue 300 with IV Contrast, (none if empty) Oral contrast used: with Oral Contrast (none if empty) CT DLP: 2823.2 mGycm, Automated exposure control for dose reduction was used. FINDINGS: LOWER CHEST: Unremarkable ABDOMEN LIVER: Unremarkable GALLBLADDER AND BILE DUCTS: The gallbladder is surgically absent. PANCREAS: Unremarkable. SPLEEN: Unremarkable. ADRENAL GLANDS: Unremarkable. KIDNEYS AND URETERS: No evidence of hydronephrosis or renal calculus. The ureters are unremarkable. Right kidney is displaced superiorly from effect in lesion described below. PELVIS BLADDER: No evidence for wall thickening or mass given limitations of exam. REPRODUCTIVE: Unremarkable. ABDOMEN & PELVIS STOMACH AND BOWEL: No evidence of bowel obstruction. Scattered scattered colonic diverticula. PERITONEUM/RETROPERITONEUM: No evidence of pneumoperitoneum or free fluid. Demonstration of fatty con taining lesion inferior to the right kidney displacing the kidney upward measuring up to 12.5 x 13.4 cm x 14.5. Measuring in coronal plane previously measuring 11.9 x 10.7 x 9.3 cm on 04/11/2023. VASCULATURE: No evidence of aortic aneurysm. MUSCULOSKELETAL: No acute osseous abnormalities LYMPH NODES: No gross evidence for lymphadenopathy. SOFT TISSUE/ABDOMINAL WALL: Unremarkable IMPRESSION: Slow interval growth compared to 04/11/2023 of retroperitoneal fat containing lesion with a CT soft ti ssue intermixed possibly representing lipoma with liposarcoma and other lipid-containing lesions not excluded. [facility], , 07/29/2024 7:06 PM
== END | disposition home or self-care (01) ==
LOC: RADCTMAIN 17:00
PROVIDERS: ATTEND Internal Medicine Critical Care Medicine
DX: K57.30 Diverticulosis of large intestine without perforation or abscess without bleeding (principal); K68.9 Other disorders of retroperitoneum
CPT/HCPCS: 74177; Q9967

== ENCOUNTER → 2024-09-05 | Outpatient (CLI) | payer MEDICAID ==
--- NOTE | 2024-09-05 08:02 | MM ---
Reason for Exam: Screening (asymptomatic). Last mammogram was performed 1 year(s) and 3 month(s) ago. Patient History: Menarche at age 16. Patient has no children. Postmenopausal. Patient used Hormonal Contraceptives for 4 years. 10/18/2019, Benign Cyst Aspiration on the right side. Risk Values: Chante 5 year model risk: 1.1%. NCI Lifetime model risk: 8.8%. Prior Study Comparison: 06/17/2021 Bilateral Screening Mammogram, [facility]. 06/20/2022 Bilateral MG 3D screening mammo w/cad, [facility]. 06/22/2023 Bilateral MG 3D screening mammo w/cad, [facility]. Tissue Density: The breasts are heterogeneously dense, which may obscure small masses. Findings: Analyzed By CAD. A few tiny benign appearing round calcifications bilaterally are redemonstrated. There is no suspicious group of microcalcifications or new suspicious mass in either breast. Overall Assessment: Negative, BI-RAD 1 Management: Screening Mammogram of both breasts in 1 year. . Patient should continue monthly self-breast exams. A clinical breast exam by your physician is recommended on an annual basis. This exam should not preclude additional follow-up of suspicious palpable abnormalities. Note on Chante scores and lifetime risk: 1. A Chante score greater than 3% is considered moderate risk. If this is the case, consider specialist referral to assess eligibility for a risk reducing agent. 2. If overall lifetime risk for the development of breast cancer is 20% or higher, the patient may qualify for future screening with alternating mammogram and breast MRI. [facility], , 09/05/2024 7:59 AM. Electronically signed and approved by: Abisai Barber M.D.
== END | disposition home or self-care (01) ==
LOC: RADMAMWWP 07:16
PROVIDERS: ATTEND Internal Medicine Critical Care Medicine
DX: Z12.31 Encounter for screening mammogram for malignant neoplasm of breast (principal); R92.333 Mammographic heterogeneous density, bilateral breasts; Z78.0 Asymptomatic menopausal state; Z92.0 Personal history of contraception
CPT/HCPCS: 77063; 77067